=== PATIENT | male | born 1980 | race Hispanic/Latino ===

== ENCOUNTER 2022-03-07 21:44 | Observation (INO) | payer MEDICAID ==
[~2022-03-07] VITALS: Ht 185.4 cm; Wt 182.4 kg
[2022-03-07] MEDS ORDERED: ASPIRIN 81MG CHEW TAB PO ONE (22:00)
[2022-03-07 22:12] LABS: BASOPHILS % (AUTO) 0.5 % (0.0-5.0); HEMATOCRIT 40.5 % (42-54); LYMPHOCYTES % (AUTO) 20.6 % (21.0-51.0); MEAN CORPUSCULAR HEMOGLOBIN 24.2 pg (27.0-33.0); MEAN CORPUSCULAR HGB CONC 31.9 g/dL (32.0-36.0); MONOCYTES % (AUTO) 5.9 % (3.0-13.0); NEUTROPHILS % (AUTO) 70.6 % (40.0-77.0); PLATELET COUNT (AUTO) 341 K/uL (130-400); RED BLOOD CELL COUNT(AUTO) 5.33 MIL/uL (4.50-6.20); RED CELL DISTRIBUTION WIDTH 16.8 % (11.0-15.5); WHITE BLOOD COUNT (AUTO) 12.7 K/uL (4.8-10.8)
[2022-03-07 22:26] LABS: CREATININE 0.9 mg/dL (0.5-1.5); POTASSIUM 4.7 mmol/L (3.5-5.1)
[2022-03-07 22:30] LABS: ALBUMIN 3.6 g/dL (3.5-5.0); TOTAL PROTEIN, SERUM 8.3 g/dL (6.0-8.3)
[2022-03-08] MEDS ORDERED: KETOROLAC 15MG/ML VIAL (15MG/ML) IV ONE (03:00)
[2022-03-08] MEDS ORDERED: MAG/ALUM/SIMETH 30 ML UDCUP PO PRN (03:00)
[2022-03-08] MEDS ORDERED: NITROGLYCERIN 0.4 MG SL TAB SL PRN ×2 (03:00→18:00)
[2022-03-08] MEDS ORDERED: HYDRALAZINE 20MG/ML VIAL IV PRN (03:00)
[2022-03-08] MEDS ORDERED: ACETAMINOPHEN WITH CODEINE 1 TAB TAB PO PRN (03:00)
[2022-03-08] MEDS ORDERED: ZOLPIDEM TARTRATE 5 MG TAB PO PRN (03:00)
[2022-03-08] MEDS ORDERED: LACTULOSE 20 GM/30 ML UDCUP PO PRN (03:00)
[2022-03-08] MEDS ORDERED: MORPHINE 4 MG SYG IV PRN (03:00)
[2022-03-08] MEDS ORDERED: ACETAMINOPHEN 325 MG TAB PO PRN ×2 (03:00)
[2022-03-08] MEDS ORDERED: ONDANSETRON 4MG INJ IV PRN (03:00)
[2022-03-08 03:11] LABS: CHOLESTEROL 110 mg/dL (<200); HDL CHOLESTEROL 47 mg/dL (29-71); LDL DIRECT 58 mg/dL (0-99); LIPASE 69 U/L (114-286); TRIGLYCERIDES 78 mg/dL (30-200)
[2022-03-08 03:29] LABS: HEMOGLOBIN A1C 6.5 % (4.0-6.0)
[2022-03-08] MEDS ORDERED: ASPI-1197 PO (04:21)
[2022-03-08] MEDS ORDERED: LOSA100T58 PO (04:22)
[2022-03-08] MEDS ORDERED: METF-444 PO (04:23)
[2022-03-08] MEDS ORDERED: NITR0.4T50 SL (04:24)
[2022-03-08] MEDS ORDERED: LINA145C PO (04:26)
[2022-03-08] MEDS ORDERED: TRAM100T40 PO (04:29)
[2022-03-08] MEDS ORDERED: ALBUTEROL 0.083% 2.5 MG/3 ML INH IH PRN (04:30)
[2022-03-08 06:37] LABS: APPEARANCE,URINE CLEAR (CLEAR); BILIRUBIN,URINE NEGATIVE (NEGATIVE); COLOR,URINE LIGHT-YELLOW (YELLOW); GLUCOSE, URINE (UA) NEGATIVE (NEGATIVE); KETONES,URINE NEGATIVE (NEGATIVE); LEUKOCYTE ESTERASE ,URINE 25 Leu/uL (NEGATIVE); NITRATE,URINE NEGATIVE (NEGATIVE); OCCULT BLOOD,URINE NEGATIVE (NEGATIVE); PH,URINE 6.5 (5.0-8.0); PROTEIN,URINE NEGATIVE (NEGATIVE); UROBILINOGEN,URINE 0.2 mg/dL (0.2-1.0)
[2022-03-08 06:45] LABS: AMPHET/METH SCREEN,URINE NEGATIVE (NEGATIVE); BARBITURATE SCREEN, URINE NEGATIVE (NEGATIVE); BENZODIAZEPINES SCREEN,URINE NEGATIVE (NEGATIVE); CANNABINOID SCREEN,URINE NEGATIVE (NEGATIVE); COCAINE SCREEN,URINE NEGATIVE (NEGATIVE); OPIATE SCREEN,URINE NEGATIVE (NEGATIVE); PHENCYCLIDINE SCREEN,URINE NEGATIVE (NEGATIVE)
[2022-03-08] MEDS ORDERED: ALBUTEROL 0.083% 2.5 MG/3 ML INH IH ONE ×2 (06:54→10:51)
[2022-03-08 07:04] LABS: BACTERIA,URINE RARE /HPF (None Seen); RBC,URINE 0-1 /HPF (0-1); SQUAMOUS EPITHELIAL CELL,UR RARE /HPF (0-2)
[2022-03-08] MEDS: INSULIN HUMULIN R 100 UNIT/ML 3ML SQ SCH ×4 (07:30→20:26)
[2022-03-08 08:13] LABS: INFLUENZA TYPE A NEGATIVE FOR TYPE A (NEG); INFLUENZA TYPE B NEGATIVE FOR TYPE B (NEG)
[2022-03-08] MEDS: HEPARIN 5,000 UNIT VIAL SQ SCH ×3 (09:00→20:26)
[2022-03-08] MEDS: FAMOTIDINE 20MG VIAL IV SCH ×2 (09:00→20:16)
[2022-03-08] MEDS ORDERED: METOPROLOL TARTRATE 25 MG TAB PO SCH (09:00)
[2022-03-08] MEDS: ASPIRIN 81 MG EC TAB PO SCH (09:00)
[2022-03-08 16:25] VITALS: BP 154/92
[2022-03-08] MEDS ORDERED: NON-FORMULARY MEDICATION 1 EACH (Tramadol HCl 100 MG) PO SCH (18:00)
[2022-03-08] MEDS ORDERED: METO-391 PO (18:02)
[2022-03-08] MEDS ORDERED: NAPR-1192 PO (18:43)
[2022-03-08] MEDS ORDERED: NAPROXEN 250 MG TAB ONE (18:48)
[2022-03-08] MEDS: NAPROXEN 250 MG TAB PO SCH (19:04)
[2022-03-08] MEDS: TRAMADOL HCL 50 MG TABLET PO SCH (19:30)
[2022-03-08] MEDS ORDERED: PHARMACY COMMUNICATION MISC SCH (19:30)
[2022-03-08 20:00] VITALS: BP 154/72
[2022-03-08] MEDS: METFORMIN HCL 500 MG TABLET PO SCH (20:17)
[2022-03-09] VITALS: BP 130/81
[2022-03-09 04:00] VITALS: BP 146/96
[2022-03-09 05:13] LABS: MEAN CORPUSCULAR VOLUME 77.4 fL (79-99); RED BLOOD CELL COUNT(AUTO) 5.04 MIL/uL (4.50-6.20); RED CELL DISTRIBUTION WIDTH 17.1 % (11.0-15.5); WHITE BLOOD COUNT (AUTO) 12.3 K/uL (4.8-10.8)
[2022-03-09] MEDS: TRAMADOL HCL 50 MG TABLET PO SCH ×2 (05:20)
[2022-03-09 05:21] LABS: POTASSIUM 4.1 mmol/L (3.5-5.1)
[2022-03-09] MEDS: Linaclotide (Linzess) 145 MCG PO SCH (05:21)
[2022-03-09] MEDS: INSULIN HUMULIN R 100 UNIT/ML 3ML SQ SCH ×4 (05:50→21:00)
[2022-03-09 08:00] VITALS: BP 153/84
[2022-03-09] MEDS ORDERED: TRAMADOL HCL 50 MG TABLET PO PRN (08:00)
[2022-03-09] MEDS: METOPROLOL SUCCINATE 50 MG TAB.SR.24H PO SCH (08:31)
[2022-03-09] MEDS: LOSARTAN 100 MG TABLET PO SCH (08:31)
[2022-03-09] MEDS: METFORMIN HCL 500 MG TABLET PO SCH ×2 (08:32→20:47)
[2022-03-09] MEDS: NAPROXEN 250 MG TAB PO SCH ×2 (08:32→20:47)
[2022-03-09] MEDS: ASPIRIN 81 MG EC TAB PO SCH (08:33)
[2022-03-09] MEDS: FAMOTIDINE 20MG VIAL IV SCH ×2 (08:33→20:47)
[2022-03-09] MEDS: ASPIRIN 81MG CHEW TAB PO SCH (08:43)
[2022-03-09] MEDS: HEPARIN 5,000 UNIT VIAL SQ SCH ×3 (08:48→20:51)
[2022-03-09 12:07] VITALS: BP 150/92
[2022-03-09] MEDS ORDERED: FUROSEMIDE 40MG VIAL IV SCH (13:00)
[2022-03-09 14:06] LABS: ABG BASE EXCESS -2.8 mmol/L (-2.0-3.0); ABG HCO3 21.8 mmol/L (21.0-28.0); ABG OXYGEN SATURATION 96.5 % (95.0-99.0); ABG PCO2 37 mmHg (35-48)
[2022-03-09 16:00] VITALS: BP 122/67
[2022-03-09 20:00] VITALS: BP 150/71
[2022-03-10] VITALS: BP 143/66
[2022-03-10 04:00] VITALS: BP 138/83
[2022-03-10 05:31] LABS: BASOPHILS % (AUTO) 0.5 % (0.0-5.0); EOSINOPHILS % (AUTO) 2.7 % (0.0-8.0); HEMATOCRIT 36.8 % (42-54); LYMPHOCYTES % (AUTO) 23.7 % (21.0-51.0); MEAN CORPUSCULAR HEMOGLOBIN 24.1 pg (27.0-33.0); MEAN CORPUSCULAR HGB CONC 31.3 g/dL (32.0-36.0); MONOCYTES % (AUTO) 6.7 % (3.0-13.0); NEUTROPHILS % (AUTO) 65.9 % (40.0-77.0); PLATELET COUNT (AUTO) 330 K/uL (130-400); RED BLOOD CELL COUNT(AUTO) 4.78 MIL/uL (4.50-6.20); WHITE BLOOD COUNT (AUTO) 12.2 K/uL (4.8-10.8)
[2022-03-10 05:46] LABS: CREATININE 0.9 mg/dL (0.5-1.5); POTASSIUM 3.5 mmol/L (3.5-5.1)
[2022-03-10] MEDS: INSULIN HUMULIN R 100 UNIT/ML 3ML SQ SCH ×3 (06:07→16:02)
[2022-03-10] MEDS: Linaclotide (Linzess) 145 MCG PO SCH (06:37)
[2022-03-10 08:00] VITALS: BP 157/80
[2022-03-10] MEDS: METOPROLOL SUCCINATE 50 MG TAB.SR.24H PO SCH (08:30)
[2022-03-10] MEDS: LOSARTAN 100 MG TABLET PO SCH (08:30)
[2022-03-10] MEDS: ASPIRIN 81MG CHEW TAB PO SCH (08:30)
[2022-03-10] MEDS: METFORMIN HCL 500 MG TABLET PO SCH (08:30)
[2022-03-10] MEDS: FAMOTIDINE 20MG VIAL IV SCH (08:30)
[2022-03-10] MEDS: NAPROXEN 250 MG TAB PO SCH (08:32)
[2022-03-10] MEDS: HEPARIN 5,000 UNIT VIAL SQ SCH ×2 (08:39→13:24)
[2022-03-10] MEDS: ASPIRIN 81 MG EC TAB PO SCH (08:40)
[2022-03-10 12:00] VITALS: BP 116/80
[2022-03-10 16:00] VITALS: BP 140/94
[2022-03-10 19:55] VITALS: BP 138/82
== END 2022-03-10 20:10 | disposition home or self-care (01) ==
LOC: EDH 21:44 → EDHIP 21:45 → 3AH 03-08 16:24
PROVIDERS: ADMIT Hospitalist; ATTEND Hospitalist
DX: M94.0 Chondrocostal junction syndrome [Tietze] (principal); J06.9 Acute upper respiratory infection, unspecified; E78.5 Hyperlipidemia, unspecified; G47.33 Obstructive sleep apnea (adult) (pediatric); E66.01 Morbid (severe) obesity due to excess calories; E11.65 Type 2 diabetes mellitus with hyperglycemia; I10 Essential (primary) hypertension; J45.909 Unspecified asthma, uncomplicated; D50.9 Iron deficiency anemia, unspecified; D72.829 Elevated white blood cell count, unspecified; I25.10 Atherosclerotic heart disease of native coronary artery without angina pectoris; J18.9 Pneumonia, unspecified organism; K43.9 Ventral hernia without obstruction or gangrene; K59.00 Constipation, unspecified; F32.A Depression, unspecified; Z79.82 Long term (current) use of aspirin; Z79.899 Other long term (current) drug therapy; Z85.038 Personal history of other malignant neoplasm of large intestine; Z68.43 Body mass index [BMI] 50.0-59.9, adult; Z79.84 Long term (current) use of oral hypoglycemic drugs; Z91.010 Allergy to peanuts; Z93.3 Colostomy status
CPT/HCPCS: 99285; 83036; 84484 ×3; 80053; 83880; 85025 ×2; 36415 ×4; 71045; 93005; 96374; 96376 ×3; 96372 ×3; 96375 ×2; 80061; 80305; 83690; 87804 ×2; 82948 ×10; 81001; 74176; 94640 ×2; 80048 ×2; 82803; 85027; 36600; 94660; G0378 ×64; S0028 ×5; J1644 ×8; J1885; J1815 ×2; J1940; J3490

== ENCOUNTER 2022-03-14 01:17 | Observation (INO) | payer MEDICAID ==
[2022-03-14] VITALS (16 sets, daily range): BP systolic 101–146; BP diastolic 58–84
[~2022-03-14] VITALS: Ht 185.4 cm; Wt 183.3 kg
[~2022-03-14 01:17] MED LIST: ASPI-1197 PO; LINA145C PO; LOSA100T58 PO; METF-444 PO; METO-391 PO; NAPR-1192 PO; NITR0.4T50 SL; TRAM100T40 PO
[2022-03-14 01:53] LABS: BASOPHILS % (AUTO) 0.4 % (0.0-5.0); EOSINOPHILS % (AUTO) 2.7 % (0.0-8.0); HEMATOCRIT 38.2 % (42-54); LYMPHOCYTES % (AUTO) 19.3 % (21.0-51.0); MEAN CORPUSCULAR HEMOGLOBIN 24.1 pg (27.0-33.0); MEAN CORPUSCULAR HGB CONC 31.4 g/dL (32.0-36.0); MEAN CORPUSCULAR VOLUME 76.9 fL (79-99); MONOCYTES % (AUTO) 6.3 % (3.0-13.0); NEUTROPHILS % (AUTO) 70.9 % (40.0-77.0); PLATELET COUNT (AUTO) 356 K/uL (130-400); RED BLOOD CELL COUNT(AUTO) 4.97 MIL/uL (4.50-6.20); RED CELL DISTRIBUTION WIDTH 16.8 % (11.0-15.5); WHITE BLOOD COUNT (AUTO) 13.5 K/uL (4.8-10.8)
[2022-03-14] MEDS ORDERED: ASPIRIN 325MG TAB PO ONE (02:00)
[2022-03-14 02:02] LABS: CREATININE 0.9 mg/dL (0.5-1.5); POTASSIUM 3.7 mmol/L (3.5-5.1)
[2022-03-14 02:06] LABS: ALBUMIN 3.3 g/dL (3.5-5.0); TOTAL PROTEIN, SERUM 8.1 g/dL (6.0-8.3)
[2022-03-14 02:19] LABS: INR 0.93 (0.85-1.15); PROTHROMBIN TIME 10.1 SEC (9.6-11.6)
[2022-03-14 02:21] LABS: PARTIAL THROMBOPLASTIN TIME 28.2 SEC (26.3-35.5)
[2022-03-14 02:23] LABS: B-TYPE NATRIURETIC PEPTIDE < 5 pg/mL (0-100)
[2022-03-14 02:29] LABS: APPEARANCE,URINE CLEAR (CLEAR); BILIRUBIN,URINE NEGATIVE (NEGATIVE); COLOR,URINE LIGHT-YELLOW (YELLOW); GLUCOSE, URINE (UA) NEGATIVE (NEGATIVE); KETONES,URINE NEGATIVE (NEGATIVE); LEUKOCYTE ESTERASE ,URINE NEGATIVE Leu/uL (NEGATIVE); NITRATE,URINE NEGATIVE (NEGATIVE); OCCULT BLOOD,URINE NEGATIVE (NEGATIVE); PH,URINE 6.5 (5.0-8.0); PROTEIN,URINE 20 mg/dL (NEGATIVE)
[2022-03-14] MEDS ORDERED: ACETAMINOPHEN 325 MG TAB PO PRN (04:00)
[2022-03-14] MEDS ORDERED: ONDANSETRON 4MG INJ IV PRN (04:00)
[2022-03-14] MEDS ORDERED: MORPHINE 4 MG SYG IV PRN (04:00)
[2022-03-14] MEDS ORDERED: ZOLPIDEM TARTRATE 5 MG TAB PO PRN (04:00)
[2022-03-14] MEDS ORDERED: MORPHINE 2 MG SYG IV PRN (04:00)
[2022-03-14] MEDS: NITROGLYCERIN 1GM OINT 1 INCH/1GM TD SCH ×3 (04:23→20:20)
[2022-03-14] MEDS ORDERED: ALBUTEROL INHALER 90MCG/INH IH PRN (04:30)
[2022-03-14 05:24] LABS: HEMOGLOBIN A1C 6.8 % (4.0-6.0)
[2022-03-14] MEDS ORDERED: ONDA4TAB10 PO (06:38)
[2022-03-14] MEDS ORDERED: IBUP-2077 PO (06:38)
[2022-03-14] MEDS ORDERED: ATOR40TA71 PO (06:44)
[2022-03-14] MEDS ORDERED: ASCO500T19 PO (06:46)
[2022-03-14] MEDS ORDERED: FLUT16H NASAL (06:50)
[2022-03-14] MEDS ORDERED: ALBU6.7H14 PO (06:50)
[2022-03-14] MEDS: INSULIN HUMULIN R 100 UNIT/ML 3ML SQ SCH ×4 (07:30→20:22)
[2022-03-14] MEDS: ASPIRIN 81MG CHEW TAB PO SCH (09:18)
[2022-03-14] MEDS: FAMOTIDINE 20MG TAB PO SCH ×2 (09:18→20:19)
[2022-03-14] MEDS: ENOXAPARIN SODIUM 40 MG/0.4 ML SYRINGE SQ SCH (09:19)
[2022-03-15 00:12] VITALS: BP 132/77
[2022-03-15] MEDS: NITROGLYCERIN 1GM OINT 1 INCH/1GM TD SCH (03:25)
[2022-03-15 04:03] VITALS: BP 141/87
[2022-03-15 04:57] LABS: BASOPHILS % (AUTO) 0.5 % (0.0-5.0); EOSINOPHILS % (AUTO) 2.8 % (0.0-8.0); HEMATOCRIT 35.5 % (42-54); LYMPHOCYTES % (AUTO) 18.3 % (21.0-51.0); MEAN CORPUSCULAR HEMOGLOBIN 24.1 pg (27.0-33.0); MEAN CORPUSCULAR HGB CONC 30.7 g/dL (32.0-36.0); MEAN CORPUSCULAR VOLUME 78.5 fL (79-99); MONOCYTES % (AUTO) 5.3 % (3.0-13.0); NEUTROPHILS % (AUTO) 72.6 % (40.0-77.0); PLATELET COUNT (AUTO) 326 K/uL (130-400); RED BLOOD CELL COUNT(AUTO) 4.52 MIL/uL (4.50-6.20); RED CELL DISTRIBUTION WIDTH 16.9 % (11.0-15.5); WHITE BLOOD COUNT (AUTO) 13.3 K/uL (4.8-10.8)
[2022-03-15 05:10] LABS: ALBUMIN 3.1 g/dL (3.5-5.0); CREATININE 0.9 mg/dL (0.5-1.5); MAGNESIUM 1.9 mg/dL (1.80-2.40); PHOSPHORUS 3.6 mg/dL (2.5-4.9); POTASSIUM 4.3 mmol/L (3.5-5.1); TOTAL PROTEIN, SERUM 7.8 g/dL (6.0-8.3)
[2022-03-15] MEDS: INSULIN HUMULIN R 100 UNIT/ML 3ML SQ SCH ×2 (05:47→11:30)
[2022-03-15 08:00] VITALS: BP 142/71
[2022-03-15] MEDS: ENOXAPARIN SODIUM 40 MG/0.4 ML SYRINGE SQ SCH (08:44)
[2022-03-15] MEDS: FAMOTIDINE 20MG TAB PO SCH (08:44)
[2022-03-15] MEDS: ASPIRIN 81MG CHEW TAB PO SCH (08:44)
[2022-03-15 11:54] VITALS: BP 145/84
[2022-03-19] MEDS ORDERED: LACT10SO9 PO (10:42)
== END 2022-03-15 11:50 | disposition home or self-care (01) ==
LOC: EDH 01:17 → EDHIP 01:18 → INTOOBSV 01:18 → 4BH 05:22
PROVIDERS: ADMIT Hospitalist; ATTEND Hospitalist
DX: J96.00 Acute respiratory failure, unspecified whether with hypoxia or hypercapnia (principal); Z20.822 Contact with and (suspected) exposure to COVID-19; R07.89 Other chest pain; D72.829 Elevated white blood cell count, unspecified; E11.9 Type 2 diabetes mellitus without complications; I10 Essential (primary) hypertension; G47.33 Obstructive sleep apnea (adult) (pediatric); E66.01 Morbid (severe) obesity due to excess calories; Z93.3 Colostomy status; Z79.899 Other long term (current) drug therapy; Z98.890 Other specified postprocedural states; Z79.84 Long term (current) use of oral hypoglycemic drugs; Z79.82 Long term (current) use of aspirin; Z59.00 Homelessness unspecified; Z68.43 Body mass index [BMI] 50.0-59.9, adult
CPT/HCPCS: 99285; 93970; 96374; 71045; 87635; 96375; 83036; 84484 ×4; 80053 ×2; 83880 ×2; 85025 ×2; 85610; 85730; 87040 ×2; 87804 ×2; 82948 ×6; 81003; 36415 ×2; 93005; 96372 ×2; 97161; 83735; 84100; 94760 ×2; J2405; J2270; J1650 ×2; G0378

== ENCOUNTER 2022-03-30 20:42 | Emergency (ER) | payer MEDICAID ==
[~2022-03-30] VITALS: Ht 185.4 cm; Wt 183.3 kg
[~2022-03-30 20:42] MED LIST changes: +ALBU6.7H14 PO; +ASCO500T19 PO; +ATOR40TA71 PO; +FLUT16H NASAL; +IBUP-2077 PO; +LACT10SO9 PO; +ONDA4TAB10 PO
[2022-03-30] MEDS ORDERED: NITROGLYCERIN 1GM OINT 1 INCH/1GM TD ONE (21:00)
[2022-03-30] MEDS ORDERED: ASPIRIN 325MG TAB PO ONE (21:00)
[2022-03-30 21:17] LABS: BASOPHILS % (AUTO) 0.3 % (0.0-5.0); EOSINOPHILS % (AUTO) 3.5 % (0.0-8.0); HEMATOCRIT 36.1 % (42-54); LYMPHOCYTES % (AUTO) 18.2 % (21.0-51.0); MEAN CORPUSCULAR HEMOGLOBIN 23.9 pg (27.0-33.0); MONOCYTES % (AUTO) 6.1 % (3.0-13.0); NEUTROPHILS % (AUTO) 71.4 % (40.0-77.0); PLATELET COUNT (AUTO) 348 K/uL (130-400); RED BLOOD CELL COUNT(AUTO) 4.69 MIL/uL (4.50-6.20); RED CELL DISTRIBUTION WIDTH 16.3 % (11.0-15.5); WHITE BLOOD COUNT (AUTO) 12.7 K/uL (4.8-10.8)
[2022-03-30 21:30] LABS: POTASSIUM 4.1 mmol/L (3.5-5.1)
[2022-03-30 21:34] LABS: APPEARANCE,URINE CLEAR (CLEAR); BILIRUBIN,URINE NEGATIVE (NEGATIVE); COLOR,URINE LIGHT-YELLOW (YELLOW); GLUCOSE, URINE (UA) NEGATIVE (NEGATIVE); KETONES,URINE NEGATIVE (NEGATIVE); LEUKOCYTE ESTERASE ,URINE NEGATIVE Leu/uL (NEGATIVE); NITRATE,URINE NEGATIVE (NEGATIVE); OCCULT BLOOD,URINE NEGATIVE (NEGATIVE); PH,URINE 7.5 (5.0-8.0); PROTEIN,URINE 10 mg/dL (NEGATIVE); UROBILINOGEN,URINE 0.2 mg/dL (0.2-1.0)
[2022-03-30 21:38] LABS: ALBUMIN 3.1 g/dL (3.5-5.0); MAGNESIUM 1.9 mg/dL (1.80-2.40); TOTAL PROTEIN, SERUM 7.8 g/dL (6.0-8.3)
[2022-03-30 21:43] LABS: B-TYPE NATRIURETIC PEPTIDE 6 pg/mL (0-100)
[2022-03-30 21:46] LABS: MUCUS,URINE RARE LPF (None Seen); RBC,URINE 0-1 /HPF (0-1); SQUAMOUS EPITHELIAL CELL,UR RARE /HPF (0-2)
[2022-03-30] MEDS ORDERED: CYCLOBENZAPRINE HCL 10 MG TABLET PO ONE (23:00)
[2022-03-30] MEDS ORDERED: HYDROCODONE/ACETAMINOPHEN 5/325 MG TAB PO ONE (23:00)
[2022-03-30] MEDS ORDERED: CYCL10TA16 PO (23:07)
[2022-03-30 23:13] VITALS: BP 140/80
== END 2022-03-30 23:29 | disposition home or self-care (01) ==
LOC: EDH 20:42
DX: R07.89 Other chest pain (principal); M54.50 Low back pain, unspecified; E66.01 Morbid (severe) obesity due to excess calories; E11.9 Type 2 diabetes mellitus without complications; E78.00 Pure hypercholesterolemia, unspecified; I10 Essential (primary) hypertension; F32.9 Major depressive disorder, single episode, unspecified; Z90.49 Acquired absence of other specified parts of digestive tract; Z90.89 Acquired absence of other organs; Z68.43 Body mass index [BMI] 50.0-59.9, adult; Z79.82 Long term (current) use of aspirin; Z79.1 Long term (current) use of non-steroidal anti-inflammatories (NSAID); Z88.2 Allergy status to sulfonamides; Z88.8 Allergy status to other drugs, medicaments and biological substances; Z79.84 Long term (current) use of oral hypoglycemic drugs; Z79.899 Other long term (current) drug therapy
CPT/HCPCS: 36415; 71045; 80053; 81001; 82550; 83735; 83880; 84484; 85025; 93005

== ENCOUNTER 2022-04-13 22:33 | Emergency (ER) | payer MEDICAID ==
[~2022-04-13] VITALS: Ht 185.4 cm; Wt 180.5 kg
[~2022-04-13 22:33] MED LIST changes: +CYCL10TA16 PO
[2022-04-14] MEDS ORDERED: BUPIVACAINE/PF 0.25% 30ML VIAL IJ ONE (02:36)
[2022-04-14] MEDS ORDERED: TRIAMCINOLONE ACETONIDE 40 MG/ML 1ML VIAL ONE (02:36)
[2022-04-14] MEDS ORDERED: TRIAMCINOLONE ACETONIDE 40 MG/ML 1ML VIAL IARTIC ONE (03:00)
[2022-04-14] MEDS ORDERED: BUPIVACAINE/PF 0.5% 10ML VIAL IJ ONE (03:00)
[2022-04-14] MEDS ORDERED: DICL50TA7 PO (03:02)
[2022-04-14] MEDS ORDERED: ACETAMINOPHEN 325 MG TAB ONE (03:11)
[2022-04-14 03:18] VITALS: BP 135/78
[2022-04-14] MEDS ORDERED: ACETAMINOPHEN 325 MG TAB PO ONE (03:30)
== END 2022-04-14 03:25 | disposition home or self-care (01) ==
LOC: EDH 22:33
DX: M75.82 Other shoulder lesions, left shoulder (principal); E66.01 Morbid (severe) obesity due to excess calories; Z68.43 Body mass index [BMI] 50.0-59.9, adult; J45.909 Unspecified asthma, uncomplicated; E11.9 Type 2 diabetes mellitus without complications; I10 Essential (primary) hypertension; G47.30 Sleep apnea, unspecified; Z88.2 Allergy status to sulfonamides; Z88.8 Allergy status to other drugs, medicaments and biological substances; Z91.018 Allergy to other foods; Z79.899 Other long term (current) drug therapy; Z79.82 Long term (current) use of aspirin; Z79.84 Long term (current) use of oral hypoglycemic drugs; Z90.89 Acquired absence of other organs; Z98.890 Other specified postprocedural states
CPT/HCPCS: 99284; 20552; 73030; J3301; S0020; J3490

== ENCOUNTER 2022-05-07 08:16 | Emergency (ER) | payer MEDICAID ==
[~2022-05-07] VITALS: Ht 170.2 cm; Wt 168.7 kg
[~2022-05-07 08:16] MED LIST changes: -CYCL10TA16 PO; -LACT10SO9 PO; -NAPR-1192 PO; -ONDA4TAB10 PO; -TRAM100T40 PO
[2022-05-07] MEDS ORDERED: 0.9%NACL 1000ML 1,000 ML IV ONE (08:30)
[2022-05-07 08:40] LABS: BASOPHILS % (AUTO) 0.1 % (0.0-5.0); HEMATOCRIT 36.1 % (42-54); LYMPHOCYTES % (AUTO) 4.6 % (21.0-51.0); MEAN CORPUSCULAR HEMOGLOBIN 24.1 pg (27.0-33.0); MEAN CORPUSCULAR HGB CONC 31.9 g/dL (32.0-36.0); MEAN CORPUSCULAR VOLUME 75.7 fL (79-99); MONOCYTES % (AUTO) 0.2 % (3.0-13.0); NEUTROPHILS % (AUTO) 94.5 % (40.0-77.0); PLATELET COUNT (AUTO) 341 K/uL (130-400); RED BLOOD CELL COUNT(AUTO) 4.77 MIL/uL (4.50-6.20); RED CELL DISTRIBUTION WIDTH 15.3 % (11.0-15.5); WHITE BLOOD COUNT (AUTO) 13.3 K/uL (4.8-10.8)
[2022-05-07 09:00] LABS: CARBON DIOXIDE 28 mmol/L (21-32); CHLORIDE 99 mmol/L (101-111); CREATININE 1.2 mg/dL (0.5-1.5); GLOMERULAR FILTR. RATE CALC 71 mL/min (>60); GLUCOSE,RANDOM 245 mg/dL (70-105); POTASSIUM 4.3 mmol/L (3.5-5.1); SODIUM SERUM 135 mmol/L (136-145); UREA NITROGEN, BLOOD 8 mg/dL (7-18)
[2022-05-07 09:05] LABS: ALANINE AMINOTRANSFERASE 33 U/L (12-78); ALBUMIN 3.3 g/dL (3.5-5.0); ALCOHOL, BLOOD < 3 mg/dL (0-10); ASPARTATE AMINOTRANSFERASE 20 U/L (10-37); CREATINE KINASE, TOTAL 126 U/L (21-232); TOTAL PROTEIN, SERUM 8.5 g/dL (6.0-8.3)
[2022-05-07 09:06] LABS: ACETAMINOPHEN < 1 mcg/mL (10-29); SALICYLATE < 2.8 mg/dL (2.8-20.0)
[2022-05-07 09:49] LABS: APPEARANCE,URINE CLEAR (CLEAR); BILIRUBIN,URINE NEGATIVE (NEGATIVE); COLOR,URINE LIGHT-YELLOW (YELLOW); GLUCOSE, URINE (UA) 300 mg/dL (NEGATIVE); KETONES,URINE 5 mg/dL (NEGATIVE); LEUKOCYTE ESTERASE ,URINE NEGATIVE Leu/uL (NEGATIVE); NITRATE,URINE NEGATIVE (NEGATIVE); OCCULT BLOOD,URINE NEGATIVE (NEGATIVE); PH,URINE 7.5 (5.0-8.0); PROTEIN,URINE NEGATIVE (NEGATIVE); UROBILINOGEN,URINE 0.2 mg/dL (0.2-1.0)
[2022-05-07 09:55] LABS: AMPHET/METH SCREEN,URINE NEGATIVE (NEGATIVE); BARBITURATE SCREEN, URINE NEGATIVE (NEGATIVE); BENZODIAZEPINES SCREEN,URINE NEGATIVE (NEGATIVE); CANNABINOID SCREEN,URINE NEGATIVE (NEGATIVE); COCAINE SCREEN,URINE NEGATIVE (NEGATIVE); OPIATE SCREEN,URINE NEGATIVE (NEGATIVE); PHENCYCLIDINE SCREEN,URINE NEGATIVE (NEGATIVE)
[2022-05-07 09:59] LABS: MUCUS,URINE RARE LPF (None Seen); RBC,URINE 0-1 /HPF (0-1); SQUAMOUS EPITHELIAL CELL,UR RARE /HPF (0-2); WBC,URINE 0-1 /HPF (0-1)
[2022-05-07 11:10] VITALS: BP 150/90
[2022-05-07] MEDS ORDERED: DEXAMETHASONE SOD PHOSPHATE 4 MG/ML 1ML VIAL IM STA (11:32)
[2022-05-07] MEDS ORDERED: ONDANSETRON 4MG INJ IVP STA (11:32)
[2022-05-07] MEDS ORDERED: AMOX500C2 PO (11:46)
== END 2022-05-07 12:12 | disposition home or self-care (01) ==
LOC: EDH 08:16
DX: J32.9 Chronic sinusitis, unspecified (principal); R42 Dizziness and giddiness; E86.0 Dehydration; E11.9 Type 2 diabetes mellitus without complications; I10 Essential (primary) hypertension; E78.5 Hyperlipidemia, unspecified; Z79.899 Other long term (current) drug therapy; Z88.2 Allergy status to sulfonamides; Z91.041 Radiographic dye allergy status
CPT/HCPCS: 99285; 96374; 71045; 96361; 82550; 80053; 80305; 85025; 36415; 93005; 96372; 81001; J1100; G0481; J7030; J2405

== ENCOUNTER 2022-05-18 21:46 | Emergency (ER) | payer MEDICAID ==
[~2022-05-18] VITALS: Ht 185.4 cm; Wt 172.4 kg
[~2022-05-18 21:46] MED LIST changes: +AMOX500C2 PO
[2022-05-18 23:19] LABS: BASOPHILS % (AUTO) 0.4 % (0.0-5.0); EOSINOPHILS % (AUTO) 2.6 % (0.0-8.0); HEMATOCRIT 36.5 % (42-54); MEAN CORPUSCULAR HEMOGLOBIN 23.6 pg (27.0-33.0); MEAN CORPUSCULAR HGB CONC 31.2 g/dL (32.0-36.0); MEAN CORPUSCULAR VOLUME 75.4 fL (79-99); MONOCYTES % (AUTO) 6.3 % (3.0-13.0); NEUTROPHILS % (AUTO) 72.2 % (40.0-77.0); PLATELET COUNT (AUTO) 374 K/uL (130-400); RED BLOOD CELL COUNT(AUTO) 4.84 MIL/uL (4.50-6.20); RED CELL DISTRIBUTION WIDTH 15.6 % (11.0-15.5); WHITE BLOOD COUNT (AUTO) 13.5 K/uL (4.8-10.8)
[2022-05-18 23:27] LABS: CREATININE 0.9 mg/dL (0.5-1.5); POTASSIUM 3.8 mmol/L (3.5-5.1)
[2022-05-18 23:31] LABS: INR 0.96 (0.85-1.15); PROTHROMBIN TIME 10.5 SEC (9.6-11.6)
[2022-05-18 23:32] LABS: ALBUMIN 3.1 g/dL (3.5-5.0); PARTIAL THROMBOPLASTIN TIME 29.1 SEC (26.3-35.5); TOTAL PROTEIN, SERUM 7.8 g/dL (6.0-8.3)
[2022-05-18 23:56] LABS: B-TYPE NATRIURETIC PEPTIDE < 5 pg/mL (0-100)
[2022-05-19 00:03] LABS: APPEARANCE,URINE CLEAR (CLEAR); BILIRUBIN,URINE NEGATIVE (NEGATIVE); COLOR,URINE LIGHT-YELLOW (YELLOW); GLUCOSE, URINE (UA) NEGATIVE (NEGATIVE); KETONES,URINE NEGATIVE (NEGATIVE); LEUKOCYTE ESTERASE ,URINE NEGATIVE Leu/uL (NEGATIVE); NITRATE,URINE NEGATIVE (NEGATIVE); OCCULT BLOOD,URINE NEGATIVE (NEGATIVE); PH,URINE 5.5 (5.0-8.0); PROTEIN,URINE NEGATIVE (NEGATIVE); UROBILINOGEN,URINE 0.2 mg/dL (0.2-1.0)
[2022-05-19] MEDS ORDERED: GABA250S5 PO (02:39)
[2022-05-19 03:06] VITALS: BP 161/89
== END 2022-05-19 03:08 | disposition home or self-care (01) ==
LOC: EDH 21:46
DX: E11.40 Type 2 diabetes mellitus with diabetic neuropathy, unspecified (principal); E78.00 Pure hypercholesterolemia, unspecified; G47.30 Sleep apnea, unspecified; I10 Essential (primary) hypertension; Z88.8 Allergy status to other drugs, medicaments and biological substances; Z88.2 Allergy status to sulfonamides; Z91.013 Allergy to seafood; Z91.010 Allergy to peanuts; Z91.040 Latex allergy status; Z79.899 Other long term (current) drug therapy; Z79.84 Long term (current) use of oral hypoglycemic drugs; Z79.82 Long term (current) use of aspirin; Z98.890 Other specified postprocedural states
CPT/HCPCS: 36415; 80053; 81003; 83690; 83880; 85025; 85610; 85730

== ENCOUNTER 2022-06-11 19:33 | Emergency (ER) | payer MEDICAID ==
[~2022-06-11] VITALS: Ht 180.3 cm; Wt 146.5 kg
[~2022-06-11 19:33] MED LIST changes: +GABA250S5 PO
[2022-06-11 21:20] LABS: BASOPHILS % (AUTO) 0.4 % (0.0-5.0); EOSINOPHILS % (AUTO) 1.8 % (0.0-8.0); HEMATOCRIT 35.1 % (42-54); LYMPHOCYTES % (AUTO) 10.9 % (21.0-51.0); MEAN CORPUSCULAR HEMOGLOBIN 23.6 pg (27.0-33.0); MEAN CORPUSCULAR HGB CONC 30.8 g/dL (32.0-36.0); MEAN CORPUSCULAR VOLUME 76.6 fL (79-99); MONOCYTES % (AUTO) 5.8 % (3.0-13.0); NEUTROPHILS % (AUTO) 80.2 % (40.0-77.0); NUCLEATED RED BLOOD CELLS 0.1 % (0.0-0.19); PLATELET COUNT (AUTO) 324 K/uL (130-400); RED BLOOD CELL COUNT(AUTO) 4.58 MIL/uL (4.50-6.20); RED CELL DISTRIBUTION WIDTH 16.2 % (11.0-15.5); WHITE BLOOD COUNT (AUTO) 13.5 K/uL (4.8-10.8)
[2022-06-11 21:35] LABS: POTASSIUM 3.7 mmol/L (3.5-5.1)
[2022-06-11 21:48] LABS: ALBUMIN 3.1 g/dL (3.5-5.0); TOTAL PROTEIN, SERUM 7.3 g/dL (6.0-8.3)
[2022-06-11] MEDS ORDERED: METH4TAB3 PO (22:58)
[2022-06-11 23:22] VITALS: BP 138/75
== END 2022-06-11 23:28 | disposition home or self-care (01) ==
LOC: EDH 19:33
DX: M94.0 Chondrocostal junction syndrome [Tietze] (principal); E66.01 Morbid (severe) obesity due to excess calories; E11.9 Type 2 diabetes mellitus without complications; E78.00 Pure hypercholesterolemia, unspecified; I10 Essential (primary) hypertension; Z79.1 Long term (current) use of non-steroidal anti-inflammatories (NSAID); Z79.82 Long term (current) use of aspirin; Z79.899 Other long term (current) drug therapy; Z88.2 Allergy status to sulfonamides; Z68.42 Body mass index [BMI] 45.0-49.9, adult; Z88.8 Allergy status to other drugs, medicaments and biological substances
CPT/HCPCS: 36415; 71045; 80053; 84484; 85025; 93005

== ENCOUNTER 2022-07-29 01:30 | Observation (INO) | payer MEDICAID ==
[~2022-07-29] VITALS: Ht 185.4 cm; Wt 185.1 kg
[~2022-07-29 01:30] MED LIST changes: +METH4TAB3 PO
[2022-07-29 02:07] LABS: BASOPHILS % (AUTO) 0.5 % (0.0-5.0); EOSINOPHILS % (AUTO) 2.3 % (0.0-8.0); LYMPHOCYTES % (AUTO) 24.8 % (21.0-51.0); MEAN CORPUSCULAR HEMOGLOBIN 22.8 pg (27.0-33.0); MEAN CORPUSCULAR HGB CONC 30.8 g/dL (32.0-36.0); MEAN CORPUSCULAR VOLUME 74.1 fL (79-99); NEUTROPHILS % (AUTO) 66.8 % (40.0-77.0); PLATELET COUNT (AUTO) 365 K/uL (130-400); RED BLOOD CELL COUNT(AUTO) 4.86 MIL/uL (4.50-6.20); RED CELL DISTRIBUTION WIDTH 16.5 % (11.0-15.5); WHITE BLOOD COUNT (AUTO) 12.7 K/uL (4.8-10.8)
[2022-07-29 02:17] LABS: CREATININE 0.9 mg/dL (0.5-1.5); POTASSIUM 3.4 mmol/L (3.5-5.1)
[2022-07-29 02:22] LABS: ALBUMIN 3.3 g/dL (3.5-5.0); TOTAL PROTEIN, SERUM 7.6 g/dL (6.0-8.3)
[2022-07-29] MEDS ORDERED: ONDANSETRON 4MG INJ IV PRN (03:30)
[2022-07-29] MEDS ORDERED: 0.9%NACL 1000ML 1,000 ML IV SCH (03:30)
[2022-07-29] MEDS ORDERED: ACETAMINOPHEN 325 MG TAB PO PRN ×2 (03:30)
[2022-07-29] MEDS ORDERED: MORPHINE 4 MG SYG IV PRN (03:30)
[2022-07-29] MEDS ORDERED: MORPHINE 2 MG SYG IV PRN (03:30)
[2022-07-29] MEDS ORDERED: ASPIRIN 81MG CHEW TAB PO ONE (04:00)
[2022-07-29] MEDS ORDERED: POTASSIUM CHLORIDE 20MEQ/100ML 100 ML IV PRN (04:00)
[2022-07-29] MEDS ORDERED: POTASSIUM CHLORIDE 10% ELIXIR 20 MEQ/15 ML UDCUP PO PRN (04:00)
[2022-07-29] MEDS ORDERED: MAGNESIUM 2GM PREMIX 50ML 50 ML IV PRN (04:00)
[2022-07-29] MEDS ORDERED: LIDOCAINE HCL-MPF 1% 2ML VIAL IV PRN (04:00)
[2022-07-29] MEDS: NITROGLYCERIN 1GM OINT 1 INCH/1GM TD SCH ×3 (04:13→20:13)
[2022-07-29 04:16] LABS: APPEARANCE,URINE CLEAR (CLEAR); BILIRUBIN,URINE NEGATIVE (NEGATIVE); COLOR,URINE LIGHT-YELLOW (YELLOW); GLUCOSE, URINE (UA) NEGATIVE (NEGATIVE); KETONES,URINE NEGATIVE (NEGATIVE); LEUKOCYTE ESTERASE ,URINE NEGATIVE Leu/uL (NEGATIVE); NITRATE,URINE NEGATIVE (NEGATIVE); OCCULT BLOOD,URINE NEGATIVE (NEGATIVE); PH,URINE 6.5 (5.0-8.0); PROTEIN,URINE NEGATIVE (NEGATIVE); UROBILINOGEN,URINE 3 mg/dL (0.2-1.0)
[2022-07-29 05:20] VITALS: BP 145/86
[2022-07-29] MEDS ORDERED: ALBU6.7H14 IH (05:37)
[2022-07-29] MEDS ORDERED: FURO40TA5 PO (05:37)
[2022-07-29] MEDS ORDERED: IPRAHFA IH (05:37)
[2022-07-29] MEDS ORDERED: DOXY100C5 PO (05:37)
[2022-07-29] MEDS ORDERED: [UNRECOGNIZED DRUG - OTHER] OTIC (05:37)
[2022-07-29] MEDS ORDERED: NAPR-1023 PO (05:37)
[2022-07-29] MEDS: INSULIN HUMULIN R 100 UNIT/ML 3ML SQ SCH ×4 (05:59→20:02)
[2022-07-29 08:00] VITALS: BP 118/76
[2022-07-29 08:23] VITALS: BP 133/75
[2022-07-29] MEDS: KCL 20 MEQ ERTAB PO PRN ×2 (09:56→15:57)
[2022-07-29] MEDS: ASPIRIN 81MG CHEW TAB PO SCH (09:56)
[2022-07-29] MEDS: ENOXAPARIN SODIUM 40 MG/0.4 ML SYRINGE SQ SCH (09:56)
[2022-07-29] MEDS: FAMOTIDINE 20MG TAB PO SCH ×2 (09:56→20:13)
[2022-07-29 12:03] VITALS: BP 136/78
[2022-07-29 12:35] LABS: CHOLESTEROL 120 mg/dL (<200); HDL CHOLESTEROL 39 mg/dL (29-71); LDL DIRECT 64 mg/dL (0-99); TRIGLYCERIDES 153 mg/dL (30-200)
[2022-07-29 12:58] LABS: AMPHET/METH SCREEN,URINE NEGATIVE (NEGATIVE); BARBITURATE SCREEN, URINE NEGATIVE (NEGATIVE); BENZODIAZEPINES SCREEN,URINE NEGATIVE (NEGATIVE); CANNABINOID SCREEN,URINE NEGATIVE (NEGATIVE); COCAINE SCREEN,URINE NEGATIVE (NEGATIVE); OPIATE SCREEN,URINE NEGATIVE (NEGATIVE); PHENCYCLIDINE SCREEN,URINE NEGATIVE (NEGATIVE)
[2022-07-29 16:42] VITALS: BP 134/78
[2022-07-29 20:00] VITALS: BP 154/65
[2022-07-29] MEDS: METOPROLOL TARTRATE 25 MG TAB PO SCH (20:13)
[2022-07-29] MEDS ORDERED: ATORVASTATIN 20 MG TABLET PO SCH (21:00)
[2022-07-30] VITALS: BP 138/81
[2022-07-30] MEDS: NITROGLYCERIN 1GM OINT 1 INCH/1GM TD SCH ×2 (03:18→11:53)
[2022-07-30 04:00] VITALS: BP 133/79
[2022-07-30 04:45] LABS: BASOPHILS % (AUTO) 0.3 % (0.0-5.0); EOSINOPHILS % (AUTO) 2.6 % (0.0-8.0); HEMATOCRIT 32.1 % (42-54); LYMPHOCYTES % (AUTO) 17.3 % (21.0-51.0); MEAN CORPUSCULAR HEMOGLOBIN 23.1 pg (27.0-33.0); MEAN CORPUSCULAR HGB CONC 30.8 g/dL (32.0-36.0); MEAN CORPUSCULAR VOLUME 74.8 fL (79-99); NEUTROPHILS % (AUTO) 74.2 % (40.0-77.0); PLATELET COUNT (AUTO) 309 K/uL (130-400); RED BLOOD CELL COUNT(AUTO) 4.29 MIL/uL (4.50-6.20); RED CELL DISTRIBUTION WIDTH 16.6 % (11.0-15.5)
[2022-07-30 05:03] LABS: HEMOGLOBIN A1C 6.8 % (4.0-6.0)
[2022-07-30 05:21] LABS: CREATININE 0.9 mg/dL (0.5-1.5); PHOSPHORUS 3.6 mg/dL (2.5-4.9); POTASSIUM 3.4 mmol/L (3.5-5.1); THYROID STIMULATING HORMONE 1.26 uIU/mL (0.36-3.74)
[2022-07-30] MEDS: KCL 20 MEQ ERTAB PO PRN ×2 (05:26→11:54)
[2022-07-30] MEDS: INSULIN HUMULIN R 100 UNIT/ML 3ML SQ SCH ×3 (05:35→16:30)
[2022-07-30 08:00] VITALS: BP 170/85
[2022-07-30] MEDS: ASPIRIN 81MG CHEW TAB PO SCH (10:52)
[2022-07-30] MEDS: METOPROLOL TARTRATE 25 MG TAB PO SCH (10:52)
[2022-07-30] MEDS: ENOXAPARIN SODIUM 40 MG/0.4 ML SYRINGE SQ SCH (10:53)
[2022-07-30] MEDS: FAMOTIDINE 20MG TAB PO SCH (10:53)
[2022-07-30 11:30] VITALS: BP 152/86
[2022-07-30] MEDS ORDERED: PEG 3350/NA SULF,BICARB,CL/KCL 4000 ML SOLN PO SCH (15:00)
[2022-07-30] MEDS ORDERED: NITR0.4T50 SL (15:18)
[2022-07-30] MEDS ORDERED: ATOR40TA69 PO (15:18)
[2022-07-30] MEDS ORDERED: METO25TA6 PO (15:18)
[2022-07-30 16:00] VITALS: BP 145/83
[2022-07-30] MEDS ORDERED: ATORVASTATIN 20 MG TABLET PO SCH (21:00)
== END 2022-07-30 18:01 | disposition home or self-care (01) ==
LOC: EDH 01:30 → EDHIP 01:31 → INTOOBSV 01:31 → 4CH 05:01
PROVIDERS: ADMIT Internal Medicine; ATTEND Internal Medicine
DX: R07.89 Other chest pain (principal); D72.829 Elevated white blood cell count, unspecified; E87.6 Hypokalemia; I10 Essential (primary) hypertension; E11.9 Type 2 diabetes mellitus without complications; E78.5 Hyperlipidemia, unspecified; G47.33 Obstructive sleep apnea (adult) (pediatric); I25.10 Atherosclerotic heart disease of native coronary artery without angina pectoris; I24.9 Acute ischemic heart disease, unspecified; J45.909 Unspecified asthma, uncomplicated; E66.01 Morbid (severe) obesity due to excess calories; Z51.5 Encounter for palliative care; Z68.43 Body mass index [BMI] 50.0-59.9, adult; Z79.82 Long term (current) use of aspirin; Z79.899 Other long term (current) drug therapy; Z90.49 Acquired absence of other specified parts of digestive tract; Z91.010 Allergy to peanuts; Z91.013 Allergy to seafood; Z79.84 Long term (current) use of oral hypoglycemic drugs; Z79.4 Long term (current) use of insulin; Z98.890 Other specified postprocedural states
CPT/HCPCS: 96372 ×2; 99285; 83036 ×2; 84484 ×4; 80061; 80053; 83880; 80305; 85025 ×2; 87040 ×2; 82948 ×7; 81003; 36415 ×2; 71045; 93005; 84443; 83735; 84100; 80048; 71046; 93306; J1650 ×2; G0378 ×6

== ENCOUNTER 2022-07-31 02:08 | Emergency (ER) | payer MEDICAID ==
[~2022-07-31 02:08] MED LIST changes: +ALBU6.7H14 IH; -ALBU6.7H14 PO; -AMOX500C2 PO; -ASCO500T19 PO; +ATOR40TA69 PO; -ATOR40TA71 PO; +FURO40TA5 PO; -GABA250S5 PO; -IBUP-2077 PO; +IPRAHFA IH; -LINA145C PO; -LOSA100T58 PO; -METH4TAB3 PO; -METO-391 PO; +METO25TA6 PO
[2022-07-31 04:07] VITALS: BP 128/78
[2022-07-31 06:17] LABS: BASOPHILS % (AUTO) 0.4 % (0.0-5.0); EOSINOPHILS % (AUTO) 2.8 % (0.0-8.0); HEMATOCRIT 35.8 % (42-54); MEAN CORPUSCULAR HEMOGLOBIN 22.8 pg (27.0-33.0); MEAN CORPUSCULAR HGB CONC 30.7 g/dL (32.0-36.0); MEAN CORPUSCULAR VOLUME 74.1 fL (79-99); MONOCYTES % (AUTO) 4.5 % (3.0-13.0); NEUTROPHILS % (AUTO) 76.8 % (40.0-77.0); PLATELET COUNT (AUTO) 335 K/uL (130-400); RED BLOOD CELL COUNT(AUTO) 4.83 MIL/uL (4.50-6.20); RED CELL DISTRIBUTION WIDTH 16.6 % (11.0-15.5); WHITE BLOOD COUNT (AUTO) 15.3 K/uL (4.8-10.8)
[2022-07-31 06:26] LABS: CREATININE 0.9 mg/dL (0.5-1.5); POTASSIUM 3.7 mmol/L (3.5-5.1)
[2022-07-31 06:34] LABS: ALBUMIN 3.4 g/dL (3.5-5.0); TOTAL PROTEIN, SERUM 7.9 g/dL (6.0-8.3)
[2022-07-31 06:34] LABS: APPEARANCE,URINE CLEAR (CLEAR); BILIRUBIN,URINE NEGATIVE (NEGATIVE); COLOR,URINE LIGHT-YELLOW (YELLOW); GLUCOSE, URINE (UA) NEGATIVE (NEGATIVE); KETONES,URINE 5 mg/dL (NEGATIVE); LEUKOCYTE ESTERASE ,URINE NEGATIVE Leu/uL (NEGATIVE); NITRATE,URINE NEGATIVE (NEGATIVE); OCCULT BLOOD,URINE NEGATIVE (NEGATIVE); PROTEIN,URINE 20 mg/dL (NEGATIVE)
[2022-07-31 06:41] LABS: AMPHET/METH SCREEN,URINE NEGATIVE (NEGATIVE); BARBITURATE SCREEN, URINE NEGATIVE (NEGATIVE); BENZODIAZEPINES SCREEN,URINE NEGATIVE (NEGATIVE); CANNABINOID SCREEN,URINE NEGATIVE (NEGATIVE); COCAINE SCREEN,URINE NEGATIVE (NEGATIVE); OPIATE SCREEN,URINE NEGATIVE (NEGATIVE); PHENCYCLIDINE SCREEN,URINE NEGATIVE (NEGATIVE)
[2022-07-31 06:42] LABS: MUCUS,URINE RARE LPF (None Seen); OTHER CASTS, URINE 1 /LPF (None Seen); RBC,URINE 0-1 /HPF (0-1); SQUAMOUS EPITHELIAL CELL,UR RARE /HPF (0-2)
== END 2022-07-31 07:31 | disposition home or self-care (01) ==
LOC: EDH 02:08
DX: R55 Syncope and collapse (principal); R42 Dizziness and giddiness; E11.9 Type 2 diabetes mellitus without complications; I10 Essential (primary) hypertension; Z90.49 Acquired absence of other specified parts of digestive tract; Z98.890 Other specified postprocedural states; Z79.1 Long term (current) use of non-steroidal anti-inflammatories (NSAID); Z79.52 Long term (current) use of systemic steroids; Z79.82 Long term (current) use of aspirin; Z79.899 Other long term (current) drug therapy; Z88.2 Allergy status to sulfonamides; Z88.8 Allergy status to other drugs, medicaments and biological substances
CPT/HCPCS: 36415; 71045; 80053; 80305; 81001; 82948; 85025; 93005

== ENCOUNTER 2022-10-05 02:43 | Emergency (ER) | payer MEDICAID ==
[~2022-10-05] VITALS: Ht 185.4 cm; Wt 181.4 kg
[2022-10-05 03:24] LABS: BASOPHILS % (AUTO) 0.4 % (0.0-5.0); EOSINOPHILS % (AUTO) 3.1 % (0.0-8.0); LYMPHOCYTES % (AUTO) 17.8 % (21.0-51.0); MEAN CORPUSCULAR HEMOGLOBIN 22.7 pg (27.0-33.0); MEAN CORPUSCULAR HGB CONC 30.6 g/dL (32.0-36.0); MEAN CORPUSCULAR VOLUME 74.2 fL (79-99); MONOCYTES % (AUTO) 6.5 % (3.0-13.0); NEUTROPHILS % (AUTO) 71.6 % (40.0-77.0); PLATELET COUNT (AUTO) 353 K/uL (130-400); RED BLOOD CELL COUNT(AUTO) 4.72 MIL/uL (4.50-6.20); WHITE BLOOD COUNT (AUTO) 12.1 K/uL (4.8-10.8)
[2022-10-05 03:31] LABS: POTASSIUM 3.8 mmol/L (3.5-5.1)
[2022-10-05 03:33] LABS: APPEARANCE,URINE CLEAR (CLEAR); BILIRUBIN,URINE NEGATIVE (NEGATIVE); COLOR,URINE LIGHT-YELLOW (YELLOW); GLUCOSE, URINE (UA) NEGATIVE (NEGATIVE); KETONES,URINE NEGATIVE (NEGATIVE); LEUKOCYTE ESTERASE ,URINE NEGATIVE Leu/uL (NEGATIVE); NITRATE,URINE NEGATIVE (NEGATIVE); OCCULT BLOOD,URINE NEGATIVE (NEGATIVE); PROTEIN,URINE NEGATIVE (NEGATIVE); UROBILINOGEN,URINE 3 mg/dL (0.2-1.0)
[2022-10-05 03:35] LABS: ALBUMIN 3.4 g/dL (3.5-5.0); TOTAL PROTEIN, SERUM 7.8 g/dL (6.0-8.3)
[2022-10-05] MEDS ORDERED: IOHEXOL 350 MG/ML 100ML INFUS..BTL IV ONE (05:36)
[2022-10-05 06:17] VITALS: BP 148/99
[2022-10-05] MEDS ORDERED: MAGN296S73 PO (06:46)
== END 2022-10-05 06:56 | disposition home or self-care (01) ==
LOC: EDH 02:43
DX: M54.50 Low back pain, unspecified (principal); R10.32 Left lower quadrant pain; E66.09 Other obesity due to excess calories; Z68.43 Body mass index [BMI] 50.0-59.9, adult; I10 Essential (primary) hypertension; E11.9 Type 2 diabetes mellitus without complications; E66.01 Morbid (severe) obesity due to excess calories; G47.30 Sleep apnea, unspecified; Z79.82 Long term (current) use of aspirin; Z79.899 Other long term (current) drug therapy; Z90.49 Acquired absence of other specified parts of digestive tract; Z98.890 Other specified postprocedural states; Z87.19 Personal history of other diseases of the digestive system; Z88.2 Allergy status to sulfonamides; Z88.8 Allergy status to other drugs, medicaments and biological substances; Z91.040 Latex allergy status; Z91.013 Allergy to seafood
CPT/HCPCS: 36415; 74176; 80053; 81003; 83690; 85025; Q9967

== ENCOUNTER 2022-10-13 00:03 | Emergency (ER) | payer MEDICAID ==
[~2022-10-13] VITALS: Ht 185.4 cm; Wt 158.8 kg
[~2022-10-13 00:03] MED LIST changes: +MAGN296S73 PO
[2022-10-13 00:07] VITALS: BP 164/97
[2022-10-13] MEDS ORDERED: ASPIRIN 81MG CHEW TAB PO ONE (00:30)
[2022-10-13 00:42] LABS: BASOPHILS % (AUTO) 0.3 % (0.0-5.0); EOSINOPHILS % (AUTO) 2.3 % (0.0-8.0); HEMATOCRIT 36.2 % (42-54); LYMPHOCYTES % (AUTO) 23.1 % (21.0-51.0); MEAN CORPUSCULAR HEMOGLOBIN 22.9 pg (27.0-33.0); MEAN CORPUSCULAR HGB CONC 30.9 g/dL (32.0-36.0); MONOCYTES % (AUTO) 5.2 % (3.0-13.0); NEUTROPHILS % (AUTO) 68.6 % (40.0-77.0); PLATELET COUNT (AUTO) 369 K/uL (130-400); RED BLOOD CELL COUNT(AUTO) 4.89 MIL/uL (4.50-6.20); RED CELL DISTRIBUTION WIDTH 17.1 % (11.0-15.5); WHITE BLOOD COUNT (AUTO) 13.3 K/uL (4.8-10.8)
[2022-10-13 00:46] LABS: CREATININE 0.9 mg/dL (0.5-1.5); POTASSIUM 3.7 mmol/L (3.5-5.1)
[2022-10-13 00:51] LABS: ALBUMIN 3.3 g/dL (3.5-5.0); MAGNESIUM 2.1 mg/dL (1.80-2.40)
[2022-10-13] MEDS ORDERED: ONDANSETRON ODT 4MG TAB SL ONE (03:30)
== END 2022-10-13 03:48 | disposition home or self-care (01) ==
LOC: EDH 00:03
DX: R07.89 Other chest pain (principal); J45.909 Unspecified asthma, uncomplicated; E11.9 Type 2 diabetes mellitus without complications; E78.00 Pure hypercholesterolemia, unspecified; I10 Essential (primary) hypertension; Z79.82 Long term (current) use of aspirin; Z88.2 Allergy status to sulfonamides; Z88.8 Allergy status to other drugs, medicaments and biological substances; Z90.49 Acquired absence of other specified parts of digestive tract
CPT/HCPCS: 36415; 71045; 80053; 83735; 84484; 85025; 93005

== ENCOUNTER 2022-10-27 00:37 | Emergency (ER) | payer MEDICAID ==
[~2022-10-27] VITALS: Ht 185.4 cm; Wt 181.9 kg
[2022-10-27 00:49] VITALS: BP 125/89
[2022-10-27] MEDS ORDERED: LORA-1339 PO (01:26)
[2022-10-27] MEDS ORDERED: AZEL205.9 NS (01:26)
== END 2022-10-27 01:41 | disposition home or self-care (01) ==
LOC: EDH 00:37
DX: J45.909 Unspecified asthma, uncomplicated (principal); E11.9 Type 2 diabetes mellitus without complications; E66.01 Morbid (severe) obesity due to excess calories; E78.00 Pure hypercholesterolemia, unspecified; I10 Essential (primary) hypertension; Z79.82 Long term (current) use of aspirin; Z88.2 Allergy status to sulfonamides; Z88.8 Allergy status to other drugs, medicaments and biological substances; Z90.49 Acquired absence of other specified parts of digestive tract; Z20.822 Contact with and (suspected) exposure to COVID-19; Z68.43 Body mass index [BMI] 50.0-59.9, adult
CPT/HCPCS: 99284; 71045; 87635; 87804 ×2; C9803

== ENCOUNTER 2022-11-02 03:04 | Emergency (ER) | payer MEDICARE, MEDICAID ==
[~2022-11-02] VITALS: Ht 180.3 cm; Wt 181.9 kg
[~2022-11-02 03:04] MED LIST changes: +AZEL205.9 NS; +LORA-1339 PO
[2022-11-02 03:08] VITALS: BP 163/95
[2022-11-02] MEDS ORDERED: MECL-262 PO (03:30)
[2022-11-02] MEDS ORDERED: AMOX1TAB16 PO (03:30)
[2022-11-02] MEDS ORDERED: MECLIZINE HCL 25 MG TABLET PO ONE (03:30)
== END 2022-11-02 03:49 | disposition home or self-care (01) ==
LOC: EDH 03:04
DX: R42 Dizziness and giddiness (principal); H66.92 Otitis media, unspecified, left ear; H61.22 Impacted cerumen, left ear; E11.9 Type 2 diabetes mellitus without complications; E78.00 Pure hypercholesterolemia, unspecified; I10 Essential (primary) hypertension; Z79.82 Long term (current) use of aspirin; Z88.2 Allergy status to sulfonamides; Z88.8 Allergy status to other drugs, medicaments and biological substances
CPT/HCPCS: 99282

== ENCOUNTER 2022-11-06 03:28 | Emergency (ER) | payer MEDICARE, MEDICAID ==
[~2022-11-06 03:28] MED LIST changes: +AMOX1TAB16 PO; +MECL-262 PO
[2022-11-06] MEDS ORDERED: ASPIRIN 325MG TAB PO ONE (04:30)
[2022-11-06 04:58] LABS: CREATININE 0.8 mg/dL (0.5-1.5); POTASSIUM 4.3 mmol/L (3.5-5.1)
[2022-11-06 05:01] LABS: INR 0.93 (0.85-1.15); PROTHROMBIN TIME 10.4 SEC (9.6-11.6)
[2022-11-06 05:02] LABS: MAGNESIUM 1.9 mg/dL (1.80-2.40); PARTIAL THROMBOPLASTIN TIME 26.8 SEC (26.3-35.5); TOTAL PROTEIN, SERUM 7.9 g/dL (6.0-8.3)
[2022-11-06 05:19] LABS: BASOPHILS % (AUTO) 0.3 % (0.0-5.0); EOSINOPHILS % (AUTO) 2.2 % (0.0-8.0); HEMATOCRIT 36.1 % (42-54); LYMPHOCYTES % (AUTO) 16.4 % (21.0-51.0); MEAN CORPUSCULAR VOLUME 74.1 fL (79-99); MONOCYTES % (AUTO) 5.4 % (3.0-13.0); NEUTROPHILS % (AUTO) 75.1 % (40.0-77.0); PLATELET COUNT (AUTO) 375 K/uL (130-400); RED BLOOD CELL COUNT(AUTO) 4.87 MIL/uL (4.50-6.20); RED CELL DISTRIBUTION WIDTH 16.9 % (11.0-15.5)
[2022-11-06 06:29] LABS: B-TYPE NATRIURETIC PEPTIDE < 5 pg/mL (0-100)
[2022-11-06 07:18] VITALS: BP 156/95
== END 2022-11-06 07:22 | disposition home or self-care (01) ==
LOC: EDH 03:28
DX: M94.0 Chondrocostal junction syndrome [Tietze] (principal); I10 Essential (primary) hypertension; E78.00 Pure hypercholesterolemia, unspecified; E11.9 Type 2 diabetes mellitus without complications; G89.29 Other chronic pain; Z88.2 Allergy status to sulfonamides; Z88.8 Allergy status to other drugs, medicaments and biological substances; Z91.018 Allergy to other foods; Z79.84 Long term (current) use of oral hypoglycemic drugs; Z79.899 Other long term (current) drug therapy
CPT/HCPCS: 36415; 71045; 80053; 83735; 83880; 84484; 85025; 85378; 85610; 85730; 93005

== ENCOUNTER 2022-11-10 02:49 | Emergency (ER) | payer MEDICARE, MEDICAID ==
[~2022-11-10] VITALS: Ht 185.4 cm; Wt 181.4 kg
[2022-11-10] MEDS ORDERED: ACETAMINOPHEN 500 MG TABLET PO ONE (03:30)
[2022-11-10 04:23] LABS: BASOPHILS % (AUTO) 0.2 % (0.0-5.0); EOSINOPHILS % (AUTO) 2.1 % (0.0-8.0); HEMATOCRIT 38.3 % (42-54); LYMPHOCYTES % (AUTO) 14.7 % (21.0-51.0); MEAN CORPUSCULAR HEMOGLOBIN 22.7 pg (27.0-33.0); MEAN CORPUSCULAR VOLUME 75.5 fL (79-99); MONOCYTES % (AUTO) 5.6 % (3.0-13.0); NEUTROPHILS % (AUTO) 76.7 % (40.0-77.0); PLATELET COUNT (AUTO) 378 K/uL (130-400); RED BLOOD CELL COUNT(AUTO) 5.07 MIL/uL (4.50-6.20); RED CELL DISTRIBUTION WIDTH 17.3 % (11.0-15.5)
[2022-11-10 04:37] LABS: CREATININE 0.9 mg/dL (0.5-1.5)
[2022-11-10 04:41] LABS: ALBUMIN 3.3 g/dL (3.5-5.0); TOTAL PROTEIN, SERUM 8.1 g/dL (6.0-8.3)
[2022-11-10 05:39] VITALS: BP 144/92
== END 2022-11-10 06:18 | disposition home or self-care (01) ==
LOC: EDH 02:49
DX: G89.29 Other chronic pain (principal); R07.89 Other chest pain; G47.33 Obstructive sleep apnea (adult) (pediatric); E66.09 Other obesity due to excess calories; Z68.43 Body mass index [BMI] 50.0-59.9, adult; I10 Essential (primary) hypertension; E78.00 Pure hypercholesterolemia, unspecified; E11.9 Type 2 diabetes mellitus without complications; Z90.49 Acquired absence of other specified parts of digestive tract; Z79.82 Long term (current) use of aspirin; Z79.84 Long term (current) use of oral hypoglycemic drugs; Z79.899 Other long term (current) drug therapy; Z98.890 Other specified postprocedural states; Z88.2 Allergy status to sulfonamides; Z91.040 Latex allergy status; Z91.010 Allergy to peanuts; Z91.018 Allergy to other foods
CPT/HCPCS: 36415; 71045; 80053; 83735; 84484; 85025; 93005

== ENCOUNTER → 2022-11-13 | Outpatient (CLI) | payer MEDICARE ==
[~2022-11-13] MED LIST changes: +CYCL10TA16 PO; +IBUP-2077 PO
[2022-11-13 13:05] LABS: ALBUMIN 3.4 g/dL (3.5-5.0); CREATININE 0.8 mg/dL (0.5-1.5); POTASSIUM 4.2 mmol/L (3.5-5.1); TOTAL PROTEIN, SERUM 8.3 g/dL (6.0-8.3)
== END | disposition home or self-care (01) ==
LOC: LAB 08:08
PROVIDERS: ATTEND Internal Medicine Cardiovascular Disease
DX: E78.5 Hyperlipidemia, unspecified (principal)
CPT/HCPCS: 36415; 80053; 80061

== ENCOUNTER 2022-11-14 04:43 | Emergency (ER) | payer MEDICARE ==
[~2022-11-14] VITALS: Ht 185.4 cm; Wt 183.3 kg
[~2022-11-14 04:43] MED LIST changes: -CYCL10TA16 PO; -IBUP-2077 PO
[2022-11-14 05:23] LABS: BASOPHILS % (AUTO) 0.7 % (0.0-5.0); EOSINOPHILS % (AUTO) 2.7 % (0.0-8.0); HEMATOCRIT 35.9 % (42-54); LYMPHOCYTES % (AUTO) 20.5 % (21.0-51.0); MEAN CORPUSCULAR HGB CONC 30.9 g/dL (32.0-36.0); MEAN CORPUSCULAR VOLUME 74.3 fL (79-99); MONOCYTES % (AUTO) 6.4 % (3.0-13.0); NEUTROPHILS % (AUTO) 69.2 % (40.0-77.0); PLATELET COUNT (AUTO) 365 K/uL (130-400); RED BLOOD CELL COUNT(AUTO) 4.83 MIL/uL (4.50-6.20); RED CELL DISTRIBUTION WIDTH 17.2 % (11.0-15.5); WHITE BLOOD COUNT (AUTO) 12.8 K/uL (4.8-10.8)
[2022-11-14 05:25] LABS: CREATININE 0.6 mg/dL (0.5-1.5); POTASSIUM 4.8 mmol/L (3.5-5.1)
[2022-11-14 05:30] LABS: ALBUMIN 3.1 g/dL (3.5-5.0)
[2022-11-14 05:44] LABS: B-TYPE NATRIURETIC PEPTIDE < 5 pg/mL (0-100)
[2022-11-14] MEDS ORDERED: CYCL10TA16 PO (07:16)
[2022-11-14] MEDS ORDERED: IBUP-2077 PO (07:16)
[2022-11-14 07:29] VITALS: BP 141/85
== END 2022-11-14 07:28 | disposition home or self-care (01) ==
LOC: EDH 04:43
DX: R07.89 Other chest pain (principal); E66.01 Morbid (severe) obesity due to excess calories; E88.81 Metabolic syndrome and other insulin resistance; E11.9 Type 2 diabetes mellitus without complications; E78.00 Pure hypercholesterolemia, unspecified; I10 Essential (primary) hypertension; J45.909 Unspecified asthma, uncomplicated; Z79.82 Long term (current) use of aspirin; Z88.2 Allergy status to sulfonamides; Z88.8 Allergy status to other drugs, medicaments and biological substances; Z68.43 Body mass index [BMI] 50.0-59.9, adult; Z90.49 Acquired absence of other specified parts of digestive tract
CPT/HCPCS: 36415; 80053; 83880; 84484; 85025; 93005

== ENCOUNTER 2023-03-26 16:36 | Emergency (ER) | payer MEDICARE ==
[~2023-03-26] VITALS: Ht 185.4 cm; Wt 185.5 kg
[~2023-03-26 16:36] MED LIST changes: +CYCL10TA16 PO; +IBUP-2077 PO
[2023-03-26 16:38] VITALS: BP 141/70; PULSE 92; RESP 16; O2SAT 100
[2023-03-26 17:20] LABS: BASOPHILS # (AUTO) 0.05 K/uL (0.00-0.20); BASOPHILS % (AUTO) 0.3 % (0.0-5.0); EOSINOPHILS # (AUTO) 0.28 K/uL (0.00-0.70); EOSINOPHILS % (AUTO) 1.8 % (0.0-8.0); HEMATOCRIT 34.6 % (42-54); IMMATURE GRANULOCYTE ABSOLUTE 0.07 K/uL (0-1); LYMPHOCYTES # (AUTO) 2.2 K/uL (1.0-4.8); LYMPHOCYTES % (AUTO) 13.8 % (21.0-51.0); MEAN CORPUSCULAR HEMOGLOBIN 22.7 pg (27.0-33.0); MEAN CORPUSCULAR HGB CONC 30.9 g/dL (32.0-36.0); MEAN CORPUSCULAR VOLUME 73.5 fL (79-99); MONOCYTES % (AUTO) 6.4 % (3.0-13.0); NEUTROPHILS # (AUTO) 12.1 K/uL (1.8-7.7); NEUTROPHILS % (AUTO) 77.3 % (40.0-77.0); PLATELET COUNT (AUTO) 361 K/uL (130-400); RED BLOOD CELL COUNT(AUTO) 4.71 MIL/uL (4.50-6.20); RED CELL DISTRIBUTION WIDTH 17.6 % (11.0-15.5); WHITE BLOOD COUNT (AUTO) 15.6 K/uL (4.8-10.8)
[2023-03-26] MEDS ORDERED: ONDANSETRON 4MG INJ IVP ONE (17:30)
[2023-03-26] MEDS ORDERED: MORPHINE 4 MG SYG IVP ONE (17:30)
[2023-03-26 17:35] LABS: BILIRUBIN,TOTAL 0.2 mg/dL (0.2-1.0); CREATININE 0.9 mg/dL (0.5-1.5); TOTAL PROTEIN, SERUM 7.4 g/dL (6.0-8.3)
[2023-03-26] MEDS ORDERED: IBUP-2071 PO (18:47)
[2023-03-26] MEDS ORDERED: METH-662 PO (18:47)
== END 2023-03-26 19:30 | disposition home or self-care (01) ==
LOC: EDH 16:36
DX: S76.912A Strain of unspecified muscles, fascia and tendons at thigh level, left thigh, initial encounter (principal); M79.605 Pain in left leg; E66.9 Obesity, unspecified; Z68.43 Body mass index [BMI] 50.0-59.9, adult; D72.829 Elevated white blood cell count, unspecified; E11.9 Type 2 diabetes mellitus without complications; Z79.82 Long term (current) use of aspirin; I10 Essential (primary) hypertension; Z88.2 Allergy status to sulfonamides; Z88.8 Allergy status to other drugs, medicaments and biological substances; Z91.041 Radiographic dye allergy status; X58.XXXA Exposure to other specified factors, initial encounter; Y93.89 Activity, other specified; Y92.89 Other specified places as the place of occurrence of the external cause; Y99.8 Other external cause status
CPT/HCPCS: 99284; 96374; 96375; 80053; 85025; 36415; 73502; 73552; J2405; J2270

== ENCOUNTER 2023-07-26 10:09 | Emergency (ER) | payer OTHER ==
[~2023-07-26] VITALS: Ht 185.4 cm; Wt 189.6 kg
[~2023-07-26 10:09] MED LIST changes: -AMOX1TAB16 PO; -ATOR40TA69 PO; -AZEL205.9 NS; +CHOL1TAB PO; -CYCL10TA16 PO; +DICL100G60 TP; +EMPA10TA PO; +FLUT1AER11 IH; -FURO40TA5 PO; -IBUP-2077 PO; -LORA-1339 PO; -MAGN296S73 PO; -MECL-262 PO; -METF-444 PO
[2023-07-26 10:53] LABS: BASOPHILS # (AUTO) 0.05 K/uL (0.00-0.20); BASOPHILS % (AUTO) 0.4 % (0.0-5.0); EOSINOPHILS % (AUTO) 3.6 % (0.0-8.0); HEMATOCRIT 33.7 % (42-54); IMMATURE GRANULOCYTE ABSOLUTE 0.05 K/uL (0-1); LYMPHOCYTES # (AUTO) 2.2 K/uL (1.0-4.8); LYMPHOCYTES % (AUTO) 19.1 % (21.0-51.0); MEAN CORPUSCULAR HEMOGLOBIN 21.8 pg (27.0-33.0); MEAN CORPUSCULAR HGB CONC 30.9 g/dL (32.0-36.0); MEAN CORPUSCULAR VOLUME 70.6 fL (79-99); MONOCYTES # (AUTO) 0.7 K/uL (0.1-1.0); MONOCYTES % (AUTO) 6.6 % (3.0-13.0); NEUTROPHILS # (AUTO) 7.8 K/uL (1.8-7.7); NEUTROPHILS % (AUTO) 69.9 % (40.0-77.0); PLATELET COUNT (AUTO) 388 K/uL (130-400); RED BLOOD CELL COUNT(AUTO) 4.77 MIL/uL (4.50-6.20); RED CELL DISTRIBUTION WIDTH 18.2 % (11.0-15.5); WHITE BLOOD COUNT (AUTO) 11.2 K/uL (4.8-10.8)
[2023-07-26 10:57] LABS: APPEARANCE,URINE CLEAR (CLEAR); BILIRUBIN,URINE NEGATIVE (NEGATIVE); COLOR,URINE LIGHT-YELLOW (YELLOW); GLUCOSE, URINE (UA) NEGATIVE (NEGATIVE); KETONES,URINE NEGATIVE (NEGATIVE); LEUKOCYTE ESTERASE ,URINE NEGATIVE Leu/uL (NEGATIVE); MUCUS,URINE RARE LPF (None Seen); NITRATE,URINE NEGATIVE (NEGATIVE); OCCULT BLOOD,URINE NEGATIVE (NEGATIVE); PH,URINE 6.5 (5.0-8.0); PROTEIN,URINE NEGATIVE (NEGATIVE); UROBILINOGEN,URINE 0.2 mg/dL (0.2-1.0); WBC,URINE 0-1 /HPF (0-1)
[2023-07-26 10:58] LABS: CREATININE 0.8 mg/dL (0.5-1.3); POTASSIUM 4.1 mmol/L (3.5-5.1)
[2023-07-26 11:02] LABS: ALBUMIN 3.2 g/dL (3.5-5.0); BILIRUBIN,TOTAL 0.2 mg/dL (0.2-1.0); TOTAL PROTEIN, SERUM 7.9 g/dL (6.0-8.3)
[2023-07-26 13:30] VITALS: BP 154/82; PULSE 82; RESP 20; O2SAT 97
== END 2023-07-26 14:15 | disposition home or self-care (01) ==
LOC: EDH 10:09
DX: R31.9 Hematuria, unspecified (principal); G89.29 Other chronic pain; M54.50 Low back pain, unspecified; E11.9 Type 2 diabetes mellitus without complications; E78.00 Pure hypercholesterolemia, unspecified; I10 Essential (primary) hypertension; J45.909 Unspecified asthma, uncomplicated; Z79.51 Long term (current) use of inhaled steroids; Z79.82 Long term (current) use of aspirin; Z88.2 Allergy status to sulfonamides; Z91.041 Radiographic dye allergy status; Z91.018 Allergy to other foods
CPT/HCPCS: 36415; 80053; 81001; 83690; 85025; 99282

== ENCOUNTER 2023-09-11 12:35 | Emergency (ER) | payer OTHER ==
[~2023-09-11] VITALS: Ht 185.4 cm; Wt 182.3 kg
[2023-09-11 12:57] VITALS: BP 137/83; PULSE 102; RESP 20
[2023-09-11 13:33] LABS: BASOPHILS # (AUTO) 0.05 K/uL (0.00-0.20); BASOPHILS % (AUTO) 0.4 % (0.0-5.0); EOSINOPHILS # (AUTO) 0.37 K/uL (0.00-0.70); EOSINOPHILS % (AUTO) 2.9 % (0.0-8.0); HEMATOCRIT 36.9 % (42-54); IMMATURE GRANULOCYTE ABSOLUTE 0.05 K/uL (0-1); LYMPHOCYTES # (AUTO) 2.4 K/uL (1.0-4.8); LYMPHOCYTES % (AUTO) 18.5 % (21.0-51.0); MEAN CORPUSCULAR HEMOGLOBIN 21.9 pg (27.0-33.0); MEAN CORPUSCULAR HGB CONC 30.1 g/dL (32.0-36.0); MEAN CORPUSCULAR VOLUME 72.6 fL (79-99); MONOCYTES # (AUTO) 0.8 K/uL (0.1-1.0); MONOCYTES % (AUTO) 6.1 % (3.0-13.0); NEUTROPHILS # (AUTO) 9.3 K/uL (1.8-7.7); NEUTROPHILS % (AUTO) 71.7 % (40.0-77.0); PLATELET COUNT (AUTO) 365 K/uL (130-400); RED BLOOD CELL COUNT(AUTO) 5.08 MIL/uL (4.50-6.20); RED CELL DISTRIBUTION WIDTH 17.9 % (11.0-15.5)
[2023-09-11 13:47] LABS: CREATININE 0.9 mg/dL (0.5-1.3); POTASSIUM 3.8 mmol/L (3.5-5.1)
[2023-09-11 13:48] LABS: INR 0.95 (0.85-1.15); PROTHROMBIN TIME 11.2 SEC (9.6-11.6)
[2023-09-11 13:49] LABS: PARTIAL THROMBOPLASTIN TIME 29.9 SEC (26.3-35.5)
[2023-09-11 13:59] LABS: B-TYPE NATRIURETIC PEPTIDE < 5 pg/mL (0-100)
[2023-09-11 16:17] LABS: ABG OXYGEN SATURATION 95.8 % (95.0-99.0); ABG PCO2 42 mmHg (35-48); ABG PH 7.396 (7.35-7.450); VENT MODE, BG RA (ROOM AIR)
[2023-09-11] MEDS ORDERED: LEVO750T68 PO (16:28)
== END 2023-09-11 16:31 | disposition home or self-care (01) ==
LOC: EDH 12:35
DX: J98.4 Other disorders of lung (principal); I10 Essential (primary) hypertension; E11.9 Type 2 diabetes mellitus without complications; E78.00 Pure hypercholesterolemia, unspecified; J45.909 Unspecified asthma, uncomplicated; Z79.82 Long term (current) use of aspirin; Z79.899 Other long term (current) drug therapy; Z98.890 Other specified postprocedural states; Z90.89 Acquired absence of other organs; Z88.2 Allergy status to sulfonamides; Z88.8 Allergy status to other drugs, medicaments and biological substances
CPT/HCPCS: 36415; 36600; 71045; 80048; 82550; 82803; 83880; 84484; 85025; 85610; 85730; 93005

== ENCOUNTER 2024-01-13 12:26 | Inpatient (IN) | payer MEDICARE, OTHER ==
[~2024-01-13] VITALS: Ht 184.2 cm; Wt 187.4 kg
[~2024-01-13 12:26] MED LIST changes: +CHOL200074 PO; +DOXY100C5 PO; -FLUT1AER11 IH; +FLUT1AER13 IH; +IBUP-2077 PO; +LIDO20SO MM; +METO-391 PO; +METO5TAB2 PO; +OMEP20TA20 PO; +ONDA-243 PO; +PRED20B PO
[2024-01-13] MEDS: Solu-medROL 125MG VIAL IVP ONE (12:59)
[2024-01-13 13:03] LABS: BASOPHILS # (AUTO) 0.05 K/uL (0.00-0.20); BASOPHILS % (AUTO) 0.4 % (0.0-5.0); EOSINOPHILS # (AUTO) 0.31 K/uL (0.00-0.70); EOSINOPHILS % (AUTO) 2.2 % (0.0-8.0); HEMATOCRIT 38.1 % (42-54); IMMATURE GRANULOCYTE ABSOLUTE 0.06 K/uL (0-1); LYMPHOCYTES # (AUTO) 2.1 K/uL (1.0-4.8); MEAN CORPUSCULAR HEMOGLOBIN 22.3 pg (27.0-33.0); MEAN CORPUSCULAR HGB CONC 30.4 g/dL (32.0-36.0); MEAN CORPUSCULAR VOLUME 73.3 fL (79-99); MONOCYTES # (AUTO) 0.8 K/uL (0.1-1.0); NEUTROPHILS # (AUTO) 10.6 K/uL (1.8-7.7); PLATELET COUNT (AUTO) 334 K/uL (130-400); RED CELL DISTRIBUTION WIDTH 17.6 % (11.0-15.5); WHITE BLOOD COUNT (AUTO) 13.9 K/uL (4.8-10.8)
[2024-01-13 13:13] LABS: ABG HCO3 25.8 mmol/L (21.0-28.0); ABG OXYGEN SATURATION 94.9 % (94.0-98.0); ABG PCO2 42 mmHg (35-48); ABG PH 7.408 (7.350-7.450); CARBON MONOXIDE 0.2 % (0.5-1.5); DEVICE COMMENT RR PETE; HHb 5.1; PO2, ARTERIAL BG 77.2 mmHg (83.0-108.0); VENT MODE, BG ROOM AIR (ROOM AIR)
[2024-01-13 13:25] VITALS: PULSE 84; RESP 18
[2024-01-13] MEDS: IpraTROPium/alBUTERol SULFATE 3 ML SOLUTION IH ONE (13:28)
[2024-01-13 14:35] LABS: CREATININE 0.9 mg/dL (0.5-1.3)
[2024-01-13 14:40] LABS: ALBUMIN 3.1 g/dL (3.5-5.0); BILIRUBIN,TOTAL 0.1 mg/dL (0.2-1.0)
[2024-01-13 15:43] LABS: APPEARANCE,URINE CLEAR (CLEAR); BILIRUBIN,URINE NEGATIVE (NEGATIVE); COLOR,URINE LIGHT-YELLOW (YELLOW); GLUCOSE, URINE (UA) NEGATIVE (NEGATIVE); KETONES,URINE NEGATIVE (NEGATIVE); LEUKOCYTE ESTERASE ,URINE NEGATIVE Leu/uL (NEGATIVE); NITRATE,URINE NEGATIVE (NEGATIVE); OCCULT BLOOD,URINE NEGATIVE (NEGATIVE); PROTEIN,URINE 10 mg/dL (NEGATIVE)
[2024-01-13 15:46] LABS: ADD UA MICROSCOPIC YES
[2024-01-13 15:48] LABS: BACTERIA,URINE RARE /HPF (None Seen); MUCUS,URINE RARE LPF (None Seen); RBC,URINE 0-1 /HPF (0-1); SQUAMOUS EPITHELIAL CELL,UR RARE /HPF (0-2)
[2024-01-13 15:51] LABS: AMPHET/METH SCREEN,URINE NEGATIVE (NEGATIVE); BARBITURATE SCREEN, URINE NEGATIVE (NEGATIVE); BENZODIAZEPINES SCREEN,URINE NEGATIVE (NEGATIVE); CANNABINOID SCREEN,URINE NEGATIVE (NEGATIVE); COCAINE SCREEN,URINE NEGATIVE (NEGATIVE); OPIATE SCREEN,URINE NEGATIVE (NEGATIVE); PHENCYCLIDINE SCREEN,URINE NEGATIVE (NEGATIVE)
[2024-01-13 15:53] LABS: RAPID GROUP A STREP negative (NEGATIVE)
[2024-01-13 16:03] LABS: COVID19 (SARS ANTIGEN RAPID) PRESUMPTIVE NEGATIVE (NEGATIVE); INFLUENZA TYPE A Negative For Type A (NEGATIVE); INFLUENZA TYPE B Negative For Type B (NEGATIVE)
[2024-01-13] MEDS: furoSEMIDE 40MG VIAL IV ONE (16:35)
[2024-01-13] MEDS ORDERED: DEXTROSE 50%-WATER 50 ML DISP.SYRIN IV PRN (17:30)
[2024-01-13] MEDS ORDERED: acetaMINOPHEN 325 MG TAB PO PRN (17:30)
[2024-01-13] MEDS ORDERED: ondanSETRON 4MG INJ IVP PRN (17:30)
[2024-01-13] MEDS ORDERED: PoTASSium chloRIDE 20MEQ/100ML 100 ML IV PRN (17:30)
[2024-01-13] MEDS ORDERED: PoTASSium chl 10% ELIXIR 20MEQ 20 MEQ/15 ML UDCUP PO PRN (17:30)
[2024-01-13] MEDS ORDERED: MAGNESIUM 2GM PREMIX 50ML 50 ML IV PRN (17:30)
[2024-01-13] MEDS ORDERED: IpraTROPium/alBUTERol SULFATE 3 ML SOLUTION IH SCH (17:30)
[2024-01-13] MEDS ORDERED: PoTASSium chloRIDE 20MEQ ER 20 MEQ ERTAB PO PRN (17:30)
[2024-01-13] MEDS ORDERED: GLUCAGON 1MG KIT 1 MG ML IM PRN (17:30)
[2024-01-13] MEDS: levoFLOXacin 500 MG/D5W 100 ML 100 ML IV SCH (18:08)
[2024-01-13] MEDS: Solu-medROL 40MG VIAL IVP SCH (18:08)
[2024-01-13] MEDS: INSULIN humuLIN R 100 UNIT/ML 3ML SQ SCH (21:00)
[2024-01-13 21:45] VITALS: BP 177/86; PULSE 92; RESP 20; TEMP 97.7
[2024-01-13] MEDS: monteLUKAST sodIUM 10 MG TAB PO SCH (22:41)
[2024-01-14] VITALS (10 sets, daily range): BP systolic 119–168; BP diastolic 68–86; PULSE 85–104; RESP 18–20; TEMP 97.4–98.3; O2SAT 95–100
[2024-01-14 03:59] LABS: HEMATOCRIT 36.5 % (42-54); MEAN CORPUSCULAR HGB CONC 30.4 g/dL (32.0-36.0); MEAN CORPUSCULAR VOLUME 72.3 fL (79-99); RED BLOOD CELL COUNT(AUTO) 5.05 MIL/uL (4.50-6.20); RED CELL DISTRIBUTION WIDTH 17.8 % (11.0-15.5); WHITE BLOOD COUNT (AUTO) 18.9 K/uL (4.8-10.8)
[2024-01-14 04:19] LABS: ALBUMIN 3.3 g/dL (3.5-5.0); BILIRUBIN,TOTAL 0.2 mg/dL (0.2-1.0); CREATININE 1.1 mg/dL (0.5-1.3); POTASSIUM 3.8 mmol/L (3.5-5.1); TOTAL PROTEIN, SERUM 8.6 g/dL (6.0-8.3)
[2024-01-14 04:47] LABS: HEMOGLOBIN A1C 6.4 % (4.0-6.0)
[2024-01-14] MEDS: ceTIRIzine HCL 5 MG TABLET PO SCH (08:57)
[2024-01-14] MEDS: ENOXAPARIN SODIUM 40 MG/0.4 ML SYRINGE SQ SCH (08:57)
[2024-01-14] MEDS: metOPROLol sucCINATE 25 MG TAB.SR.24H PO ONE (10:00)
[2024-01-14] MEDS ORDERED: PHARMACY COMMUNICATION MISC SCH (18:00)
[2024-01-14] MEDS: predniSONE 20 MG TABLET PO SCH (19:28)
[2024-01-14] MEDS: predniSONE 20 MG TABLET ONE (19:30)
[2024-01-15 00:10] VITALS: PULSE 96; RESP 20; O2SAT 100
[2024-01-15 04:34] VITALS: BP 130/79; PULSE 82; RESP 18; TEMP 98.1
[2024-01-15 06:28] VITALS: PULSE 85; RESP 20; O2SAT 98
[2024-01-15 08:00] VITALS: BP 136/87; PULSE 73; RESP 18; TEMP 97.5
[2024-01-15 08:15] VITALS: O2SAT 95
[2024-01-15] MEDS: metOPROLol sucCINATE 25 MG TAB.SR.24H PO SCH (09:45)
[2024-01-15] MEDS: acetaMINOPHEN 325 MG TAB PO PRN (09:47)
[2024-01-15 12:02] VITALS: BP 144/70; PULSE 73; RESP 22; TEMP 97.9
== END 2024-01-15 13:55 | disposition home or self-care (01) | DRG 189 ==
LOC: EDH 12:26 → EDHIP 17:30 → 4DH 20:58
PROVIDERS: ADMIT Hospitalist; ATTEND Hospitalist
DX: J96.01 Acute respiratory failure with hypoxia (principal); J45.901 Unspecified asthma with (acute) exacerbation; Z68.43 Body mass index [BMI] 50.0-59.9, adult; E66.01 Morbid (severe) obesity due to excess calories; Z20.822 Contact with and (suspected) exposure to COVID-19; E11.40 Type 2 diabetes mellitus with diabetic neuropathy, unspecified; E11.65 Type 2 diabetes mellitus with hyperglycemia; E78.00 Pure hypercholesterolemia, unspecified; G47.33 Obstructive sleep apnea (adult) (pediatric); I11.0 Hypertensive heart disease with heart failure; I25.10 Atherosclerotic heart disease of native coronary artery without angina pectoris; I50.810 Right heart failure, unspecified; T38.0X5A Adverse effect of glucocorticoids and synthetic analogues, initial encounter; Y92.89 Other specified places as the place of occurrence of the external cause; Z79.4 Long term (current) use of insulin; Z82.49 Family history of ischemic heart disease and other diseases of the circulatory system; Z91.041 Radiographic dye allergy status; Z91.010 Allergy to peanuts; Z91.013 Allergy to seafood; Z88.2 Allergy status to sulfonamides; Z91.018 Allergy to other foods; Z83.3 Family history of diabetes mellitus; Z93.3 Colostomy status
CPT/HCPCS: 36415; 36600; 71045; 80053; 80061; 80305; 81001; 82435; 82550; 82803; 82947; 82948; 83036; 83605; 83880; 84132; 84145; 84295; 84484; 85018; 85025; 85027; 85378; 87426; 87804; 87880; 93005; 93970; 94640; 99291; G0378; J1650; J1815; J1940; J1956; J2919

== ENCOUNTER 2024-01-17 16:33 | Emergency (ER) | payer MEDICARE ==
[~2024-01-17] VITALS: Ht 185.4 cm; Wt 186.9 kg
[~2024-01-17 16:33] MED LIST changes: -CHOL1TAB PO; -CHOL200074 PO; -DICL100G60 TP; -DOXY100C5 PO; -EMPA10TA PO; -FLUT1AER13 IH; -IBUP-2077 PO; -LIDO20SO MM; -METO25TA6 PO; -METO5TAB2 PO; -NITR0.4T50 SL; -OMEP20TA20 PO; -ONDA-243 PO; -PRED20B PO
[2024-01-17 17:18] LABS: BASOPHILS # (AUTO) 0.04 K/uL (0.00-0.20); BASOPHILS % (AUTO) 0.3 % (0.0-5.0); EOSINOPHILS # (AUTO) 0.35 K/uL (0.00-0.70); EOSINOPHILS % (AUTO) 2.4 % (0.0-8.0); HEMATOCRIT 36.3 % (42-54); IMMATURE GRANULOCYTE ABSOLUTE 0.08 K/uL (0-1); LYMPHOCYTES % (AUTO) 20.2 % (21.0-51.0); MEAN CORPUSCULAR HEMOGLOBIN 21.9 pg (27.0-33.0); MEAN CORPUSCULAR HGB CONC 30.9 g/dL (32.0-36.0); MONOCYTES # (AUTO) 0.8 K/uL (0.1-1.0); MONOCYTES % (AUTO) 5.4 % (3.0-13.0); NEUTROPHILS # (AUTO) 10.5 K/uL (1.8-7.7); NEUTROPHILS % (AUTO) 71.2 % (40.0-77.0); PLATELET COUNT (AUTO) 346 K/uL (130-400); RED BLOOD CELL COUNT(AUTO) 5.11 MIL/uL (4.50-6.20); RED CELL DISTRIBUTION WIDTH 18.1 % (11.0-15.5); WHITE BLOOD COUNT (AUTO) 14.8 K/uL (4.8-10.8)
[2024-01-17 17:39] LABS: CREATININE 0.8 mg/dL (0.5-1.3); POTASSIUM 3.5 mmol/L (3.5-5.1)
[2024-01-17] MEDS: acetaMINOPHEN 500 MG TABLET PO ONE (17:53)
[2024-01-17] MEDS ORDERED: NAPR375T6 PO (19:58)
[2024-01-17] MEDS ORDERED: CYCL7.5T27 PO (19:58)
[2024-01-17 20:07] VITALS: BP 157/80; PULSE 95; RESP 20; TEMP 98.7; O2SAT 99
== END 2024-01-17 20:15 | disposition home or self-care (01) ==
LOC: EDBD 16:33 → EDH 16:33
DX: S86.911A Strain of unspecified muscle(s) and tendon(s) at lower leg level, right leg, initial encounter (principal); M25.551 Pain in right hip; R42 Dizziness and giddiness; E11.9 Type 2 diabetes mellitus without complications; I10 Essential (primary) hypertension; E66.01 Morbid (severe) obesity due to excess calories; J45.909 Unspecified asthma, uncomplicated; E78.00 Pure hypercholesterolemia, unspecified; Z68.44 Body mass index [BMI] 60.0-69.9, adult; Z88.2 Allergy status to sulfonamides; Z91.041 Radiographic dye allergy status; Z79.899 Other long term (current) drug therapy; Z93.3 Colostomy status; Z90.89 Acquired absence of other organs; Z90.49 Acquired absence of other specified parts of digestive tract; W01.198A Fall on same level from slipping, tripping and stumbling with subsequent striking against other object, initial encounter; Y93.E1 Activity, personal bathing and showering; Y92.091 Bathroom in other non-institutional residence as the place of occurrence of the external cause; Y99.8 Other external cause status
CPT/HCPCS: 36415; 71045; 73502; 73562; 80048; 84484; 85025; 93005

== ENCOUNTER 2024-01-30 18:20 | Emergency (ER) | payer MEDICARE ==
[~2024-01-30] VITALS: Ht 185.4 cm; Wt 181.0 kg
[~2024-01-30 18:20] MED LIST changes: +CYCL7.5T27 PO; +NAPR375T6 PO
[2024-01-30 18:46] LABS: BASOPHILS # (AUTO) 0.05 K/uL (0.00-0.20); BASOPHILS % (AUTO) 0.5 % (0.0-5.0); EOSINOPHILS # (AUTO) 0.34 K/uL (0.00-0.70); EOSINOPHILS % (AUTO) 3.1 % (0.0-8.0); HEMATOCRIT 34.2 % (42-54); IMMATURE GRANULOCYTE ABSOLUTE 0.05 K/uL (0-1); LYMPHOCYTES % (AUTO) 18.3 % (21.0-51.0); MEAN CORPUSCULAR HEMOGLOBIN 22.3 pg (27.0-33.0); MEAN CORPUSCULAR HGB CONC 30.7 g/dL (32.0-36.0); MEAN CORPUSCULAR VOLUME 72.8 fL (79-99); MONOCYTES # (AUTO) 0.7 K/uL (0.1-1.0); MONOCYTES % (AUTO) 6.4 % (3.0-13.0); NEUTROPHILS # (AUTO) 7.9 K/uL (1.8-7.7); NEUTROPHILS % (AUTO) 71.2 % (40.0-77.0); PLATELET COUNT (AUTO) 309 K/uL (130-400); RED CELL DISTRIBUTION WIDTH 17.9 % (11.0-15.5); WHITE BLOOD COUNT (AUTO) 11.1 K/uL (4.8-10.8)
[2024-01-30 18:56] LABS: CREATININE 0.8 mg/dL (0.5-1.3); POTASSIUM 3.7 mmol/L (3.5-5.1)
[2024-01-30 19:11] LABS: B-TYPE NATRIURETIC PEPTIDE < 5 pg/mL (0-100)
[2024-01-30 19:44] LABS: APPEARANCE,URINE CLEAR (CLEAR); BILIRUBIN,URINE NEGATIVE (NEGATIVE); COLOR,URINE LIGHT-YELLOW (YELLOW); GLUCOSE, URINE (UA) NEGATIVE (NEGATIVE); KETONES,URINE NEGATIVE (NEGATIVE); LEUKOCYTE ESTERASE ,URINE NEGATIVE Leu/uL (NEGATIVE); NITRATE,URINE NEGATIVE (NEGATIVE); OCCULT BLOOD,URINE NEGATIVE (NEGATIVE); PROTEIN,URINE NEGATIVE (NEGATIVE); UROBILINOGEN,URINE 0.2 mg/dL (0.2-1.0)
[2024-01-30 19:46] LABS: ADD UA MICROSCOPIC NO
[2024-01-30] MEDS ORDERED: AZIT250T9 PO (20:58)
[2024-01-30] MEDS ORDERED: METH4TAB3 PO (20:58)
[2024-01-30] MEDS: IpraTROPium/alBUTERol SULFATE 3 ML SOLUTION IH ONE (21:34)
[2024-01-30 21:35] VITALS: PULSE 82; RESP 15
[2024-01-30 22:07] VITALS: BP 135/78; PULSE 63; RESP 15; TEMP 98.1; O2SAT 97
== END 2024-01-30 22:29 | disposition home or self-care (01) ==
LOC: EDH 18:20
DX: J45.901 Unspecified asthma with (acute) exacerbation (principal); E11.9 Type 2 diabetes mellitus without complications; I10 Essential (primary) hypertension; I25.10 Atherosclerotic heart disease of native coronary artery without angina pectoris; E66.01 Morbid (severe) obesity due to excess calories; Z88.2 Allergy status to sulfonamides; Z91.041 Radiographic dye allergy status; Z91.018 Allergy to other foods; Z79.899 Other long term (current) drug therapy; Z79.82 Long term (current) use of aspirin; Z90.49 Acquired absence of other specified parts of digestive tract; Z90.89 Acquired absence of other organs
CPT/HCPCS: 36415; 71045; 80048; 81003; 82550; 83880; 84484; 85025; 93005; 94640

== ENCOUNTER 2024-02-05 16:04 | Emergency (ER) | payer MEDICARE ==
[~2024-02-05] VITALS: Ht 175.3 cm; Wt 158.8 kg
[~2024-02-05 16:04] MED LIST changes: +AZIT250T9 PO; +METH4TAB3 PO; +NAPR-1505 PO; -NAPR375T6 PO
[2024-02-05 16:44] LABS: BASOPHILS # (AUTO) 0.05 K/uL (0.00-0.20); BASOPHILS % (AUTO) 0.4 % (0.0-5.0); EOSINOPHILS # (AUTO) 0.35 K/uL (0.00-0.70); HEMATOCRIT 35.5 % (42-54); IMMATURE GRANULOCYTE ABSOLUTE 0.06 K/uL (0-1); LYMPHOCYTES # (AUTO) 2.4 K/uL (1.0-4.8); LYMPHOCYTES % (AUTO) 20.4 % (21.0-51.0); MEAN CORPUSCULAR HEMOGLOBIN 22.6 pg (27.0-33.0); MONOCYTES # (AUTO) 0.9 K/uL (0.1-1.0); MONOCYTES % (AUTO) 7.9 % (3.0-13.0); NEUTROPHILS # (AUTO) 7.9 K/uL (1.8-7.7); NEUTROPHILS % (AUTO) 67.8 % (40.0-77.0); PLATELET COUNT (AUTO) 352 K/uL (130-400); RED BLOOD CELL COUNT(AUTO) 4.86 MIL/uL (4.50-6.20); RED CELL DISTRIBUTION WIDTH 17.9 % (11.0-15.5); WHITE BLOOD COUNT (AUTO) 11.7 K/uL (4.8-10.8)
[2024-02-05 17:01] LABS: CREATININE 0.8 mg/dL (0.5-1.3); POTASSIUM 3.6 mmol/L (3.5-5.1)
[2024-02-05] MEDS: ketOROlac 30MG VIAL (30MG/ML) IVP ONE (17:01)
[2024-02-05 17:03] LABS: B-TYPE NATRIURETIC PEPTIDE < 5 pg/mL (0-100)
[2024-02-05] MEDS ORDERED: IBUP-2077 PO (18:15)
[2024-02-05] MEDS: dexaMETHasone SOD PHOSPHATE 4 MG/ML 1ML VIAL IVP ONE (18:36)
[2024-02-05 19:21] VITALS: BP 139/71; PULSE 87; RESP 18; TEMP 98.2; O2SAT 98
== END 2024-02-05 19:22 | disposition home or self-care (01) ==
LOC: EDH 16:04 → EDBD 16:04 → EDH 19:22
DX: M94.0 Chondrocostal junction syndrome [Tietze] (principal); E87.1 Hypo-osmolality and hyponatremia; E66.01 Morbid (severe) obesity due to excess calories; E11.9 Type 2 diabetes mellitus without complications; I10 Essential (primary) hypertension; F41.9 Anxiety disorder, unspecified; Z79.82 Long term (current) use of aspirin; Z79.899 Other long term (current) drug therapy; Z88.2 Allergy status to sulfonamides; Z88.8 Allergy status to other drugs, medicaments and biological substances; Z90.49 Acquired absence of other specified parts of digestive tract; Z90.89 Acquired absence of other organs; Z91.041 Radiographic dye allergy status; Z98.890 Other specified postprocedural states
CPT/HCPCS: 99285; 96374; 71045; 96375; 82550; 84484; 80048; 83880; 85025; 36415; 93005; J1100; J1885

== ENCOUNTER 2024-02-22 20:47 | Inpatient (IN) | payer MEDICARE ==
[~2024-02-22] VITALS: Ht 185.4 cm; Wt 182.8 kg
[~2024-02-22 20:47] MED LIST changes: +IBUP-2077 PO
[2024-02-22 21:23] LABS: BASOPHILS # (AUTO) 0.03 K/uL (0.00-0.20); BASOPHILS % (AUTO) 0.3 % (0.0-5.0); EOSINOPHILS # (AUTO) 0.05 K/uL (0.00-0.70); EOSINOPHILS % (AUTO) 0.5 % (0.0-8.0); HEMATOCRIT 35.1 % (42-54); IMMATURE GRANULOCYTE ABSOLUTE 0.04 K/uL (0-1); LYMPHOCYTES # (AUTO) 1.2 K/uL (1.0-4.8); LYMPHOCYTES % (AUTO) 12.3 % (21.0-51.0); MEAN CORPUSCULAR HEMOGLOBIN 22.3 pg (27.0-33.0); MEAN CORPUSCULAR HGB CONC 30.8 g/dL (32.0-36.0); MEAN CORPUSCULAR VOLUME 72.4 fL (79-99); MONOCYTES % (AUTO) 9.7 % (3.0-13.0); NEUTROPHILS # (AUTO) 7.5 K/uL (1.8-7.7); NEUTROPHILS % (AUTO) 76.8 % (40.0-77.0); PLATELET COUNT (AUTO) 303 K/uL (130-400); RED BLOOD CELL COUNT(AUTO) 4.85 MIL/uL (4.50-6.20); RED CELL DISTRIBUTION WIDTH 17.4 % (11.0-15.5); WHITE BLOOD COUNT (AUTO) 9.8 K/uL (4.8-10.8)
[2024-02-22 21:25] LABS: APPEARANCE,URINE CLEAR (CLEAR); BILIRUBIN,URINE NEGATIVE (NEGATIVE); COLOR,URINE LIGHT-YELLOW (YELLOW); GLUCOSE, URINE (UA) NEGATIVE (NEGATIVE); KETONES,URINE NEGATIVE (NEGATIVE); LEUKOCYTE ESTERASE ,URINE NEGATIVE Leu/uL (NEGATIVE); NITRATE,URINE NEGATIVE (NEGATIVE); OCCULT BLOOD,URINE NEGATIVE (NEGATIVE); PROTEIN,URINE NEGATIVE (NEGATIVE); UROBILINOGEN,URINE 0.2 mg/dL (0.2-1.0)
[2024-02-22 21:28] LABS: ADD UA MICROSCOPIC YES; MUCUS,URINE RARE LPF (None Seen); WBC,URINE 0-1 /HPF (0-1)
[2024-02-22 21:30] LABS: RAPID GROUP A STREP negative (NEGATIVE)
[2024-02-22 21:30] LABS: POTASSIUM 3.6 mmol/L (3.5-5.1)
[2024-02-22 21:41] LABS: COVID19 (SARS ANTIGEN RAPID) PRESUMPTIVE NEGATIVE (NEGATIVE); INFLUENZA TYPE A Negative For Type A (NEGATIVE); INFLUENZA TYPE B Negative For Type B (NEGATIVE)
[2024-02-22] MEDS: 0.9% NACL 500ML IV.SOLN 500 ML IV ONE (21:48)
[2024-02-22] MEDS ORDERED: ketOROlac 30MG VIAL (30MG/ML) IVP ONE (22:00)
[2024-02-22] MEDS: morPHINE 4 MG SYG IVP ONE (22:20)
[2024-02-23] VITALS (10 sets, daily range): BP systolic 117–155; BP diastolic 71–95; PULSE 90–111; RESP 18–20; TEMP 97.6–98.9; O2SAT 94–99
[2024-02-23] MEDS ORDERED: ondanSETRON 4MG INJ IVP PRN (01:30)
[2024-02-23] MEDS ORDERED: hydrALAZine 20MG/ML VIAL IV PRN (01:30)
[2024-02-23] MEDS ORDERED: acetaMINOPHEN 650 MG SUPPOSITORY RC PRN (01:30)
[2024-02-23] MEDS ORDERED: LAbetaLOL 20MG SYG IV PRN (01:30)
[2024-02-23] MEDS ORDERED: METO5TAB2 PO (02:46)
[2024-02-23] MEDS: HYDROcodone/APAP 5/325 1 TAB TABLET PO PRN (03:53)
[2024-02-23] MEDS: ALBUTEROL 0.083% 2.5 MG/3 ML INH IH PRN (07:25)
[2024-02-23] MEDS: INSULIN humuLIN R 100 UNIT/ML 3ML SQ SCH ×2 (07:30→16:30)
[2024-02-23] MEDS: FERROUS SULFATE 325 MG TABLET.DR PO SCH (09:22)
[2024-02-23] MEDS: FAMOTIDINE 20MG TAB PO SCH (09:22)
[2024-02-23] MEDS: ASCORBIC ACID 500 MG TAB PO SCH (09:22)
[2024-02-23] MEDS ORDERED: FLUT1DIS4 IH (09:29)
[2024-02-23 11:02] LABS: BASOPHILS # (AUTO) 0.03 K/uL (0.00-0.20); BASOPHILS % (AUTO) 0.3 % (0.0-5.0); EOSINOPHILS # (AUTO) 0.05 K/uL (0.00-0.70); EOSINOPHILS % (AUTO) 0.5 % (0.0-8.0); HEMATOCRIT 34.1 % (42-54); IMMATURE GRANULOCYTE ABSOLUTE 0.05 K/uL (0-1); LYMPHOCYTES # (AUTO) 1.2 K/uL (1.0-4.8); LYMPHOCYTES % (AUTO) 11.9 % (21.0-51.0); MEAN CORPUSCULAR HEMOGLOBIN 22.7 pg (27.0-33.0); MEAN CORPUSCULAR HGB CONC 30.2 g/dL (32.0-36.0); MEAN CORPUSCULAR VOLUME 75.1 fL (79-99); MONOCYTES # (AUTO) 1.1 K/uL (0.1-1.0); MONOCYTES % (AUTO) 11.1 % (3.0-13.0); NEUTROPHILS # (AUTO) 7.6 K/uL (1.8-7.7); NEUTROPHILS % (AUTO) 75.7 % (40.0-77.0); PLATELET COUNT (AUTO) 260 K/uL (130-400); RED BLOOD CELL COUNT(AUTO) 4.54 MIL/uL (4.50-6.20); RED CELL DISTRIBUTION WIDTH 17.6 % (11.0-15.5); WHITE BLOOD COUNT (AUTO) 10.1 K/uL (4.8-10.8)
[2024-02-23] MEDS ORDERED: LACTULOSE 20 GM/30 ML UDCUP PO PRN (17:00)
[2024-02-23] MEDS: LACTULOSE 20 GM/30 ML UDCUP PO ONE (18:01)
[2024-02-23] MEDS: CEFTRIAXONE 2GM VIAL IVPB SCH (18:01)
[2024-02-23] MEDS: dexaMETHasone SOD PHOSPHATE 4 MG/ML 1ML VIAL IV SCH (18:02)
[2024-02-24] VITALS (11 sets, daily range): BP systolic 123–161; BP diastolic 62–91; PULSE 75–92; RESP 18–20; TEMP 97.8–98.9; O2SAT 94–98
[2024-02-24 05:43] LABS: BASOPHILS # (AUTO) 0.01 K/uL (0.00-0.20); BASOPHILS % (AUTO) 0.1 % (0.0-5.0); HEMATOCRIT 37.1 % (42-54); IMMATURE GRANULOCYTE ABSOLUTE 0.04 K/uL (0-1); LYMPHOCYTES # (AUTO) 1.1 K/uL (1.0-4.8); LYMPHOCYTES % (AUTO) 10.8 % (21.0-51.0); MEAN CORPUSCULAR HEMOGLOBIN 22.6 pg (27.0-33.0); MEAN CORPUSCULAR HGB CONC 30.5 g/dL (32.0-36.0); MEAN CORPUSCULAR VOLUME 74.2 fL (79-99); MONOCYTES # (AUTO) 0.4 K/uL (0.1-1.0); MONOCYTES % (AUTO) 3.5 % (3.0-13.0); NEUTROPHILS # (AUTO) 8.6 K/uL (1.8-7.7); NEUTROPHILS % (AUTO) 85.2 % (40.0-77.0); PLATELET COUNT (AUTO) 287 K/uL (130-400); RED CELL DISTRIBUTION WIDTH 17.3 % (11.0-15.5); WHITE BLOOD COUNT (AUTO) 10.1 K/uL (4.8-10.8)
[2024-02-24 05:49] LABS: CREATININE 0.9 mg/dL (0.5-1.3); MAGNESIUM 2.2 mg/dL (1.80-2.40); PHOSPHORUS 3.6 mg/dL (2.5-4.9); POTASSIUM 4.1 mmol/L (3.5-5.1)
[2024-02-24] MEDS ORDERED: RACEPINEPHRINE HCL 2.25% 0.5 ML NEB SOLN NEB PRN (09:30)
[2024-02-24] MEDS: ASPIRIN 81MG CHEW TAB PO SCH (09:39)
[2024-02-24] MEDS: metOPROLol sucCINATE 50 MG TAB.SR.24H PO SCH (09:39)
[2024-02-24 09:46] LABS: ABG BASE EXCESS -3.3 mmol/L (-2.0-3.0); ABG HCO3 20.4 mmol/L (21.0-28.0); ABG OXYGEN SATURATION 95.7 % (94.0-98.0); ABG PCO2 33 mmHg (35-48); DEVICE COMMENT RR NOEMI; PO2, ARTERIAL BG 77.2 mmHg (83.0-108.0); VENT MODE, BG RA (ROOM AIR)
[2024-02-24] MEDS: AZITHROMYCIN 500MG+NS 250ML 250 ML IVPB SCH (16:53)
[2024-02-24] MEDS ORDERED: RACEPINEPHRINE HCL 2.25% 0.5 ML NEB SOLN NEB SCH (17:00)
[2024-02-24] MEDS: RACEPINEPHRINE HCL 2.25% 0.5 ML NEB SOLN NEB SCH (19:10)
[2024-02-24] MEDS: dexaMETHasone SOD PHOSPHATE 4 MG/ML 1ML VIAL IV SCH (20:38)
[2024-02-25] VITALS (7 sets, daily range): BP systolic 133–157; BP diastolic 66–82; PULSE 71–95; RESP 18–21; TEMP 97.5–98.4; O2SAT 97–98
[2024-02-25] MEDS: acetaMINOPHEN 325 MG TAB PO PRN (03:22)
== END 2024-02-25 12:10 | disposition short-term general hospital (02) | DRG 202 ==
LOC: EDH 20:47 → EDHIP 02-23 00:44 → OBSVTOIN 02-23 00:44 → INTOOBSV 02-23 00:44 → 3CH 02-23 02:43 → 2AH 02-24 10:31
PROVIDERS: ADMIT Internal Medicine Critical Care Medicine; ATTEND Internal Medicine Critical Care Medicine
DX: J20.9 Acute bronchitis, unspecified (principal); E87.1 Hypo-osmolality and hyponatremia; Z68.43 Body mass index [BMI] 50.0-59.9, adult; R65.10 Systemic inflammatory response syndrome (SIRS) of non-infectious origin without acute organ dysfunction; I10 Essential (primary) hypertension; E66.01 Morbid (severe) obesity due to excess calories; G47.33 Obstructive sleep apnea (adult) (pediatric); F32.A Depression, unspecified; J45.909 Unspecified asthma, uncomplicated; E78.5 Hyperlipidemia, unspecified; T88.4XXA Failed or difficult intubation, initial encounter; Z20.822 Contact with and (suspected) exposure to COVID-19; T78.1XXA Other adverse food reactions, not elsewhere classified, initial encounter; K59.00 Constipation, unspecified; E86.0 Dehydration; E11.40 Type 2 diabetes mellitus with diabetic neuropathy, unspecified; Z83.3 Family history of diabetes mellitus; Z82.49 Family history of ischemic heart disease and other diseases of the circulatory system; Z91.010 Allergy to peanuts; Z93.3 Colostomy status; Z79.899 Other long term (current) drug therapy
CPT/HCPCS: 36415; 36600; 70490; 71045; 80048; 81001; 82803; 82948; 83735; 83880; 84100; 84145; 85025; 85378; 87426; 87804; 87880; 93970; 94640; 94664; 96361; 96375; G0378; J0456; J0696; J1100; J2270

== ENCOUNTER 2024-03-01 22:14 | Emergency (ER) | payer MEDICARE ==
[~2024-03-01] VITALS: Ht 185.4 cm; Wt 182.8 kg
[~2024-03-01 22:14] MED LIST changes: -ALBU6.7H14 IH; -AZIT250T9 PO; -CYCL7.5T27 PO; +FLUT1DIS4 IH; -IBUP-2077 PO; -IPRAHFA IH; -METH4TAB3 PO; -NAPR-1505 PO
[2024-03-01] MEDS: dexaMETHasone SOD PHOSPHATE 4 MG/ML 1ML VIAL IVP ONE (22:53)
[2024-03-01] MEDS: ketOROlac 15MG/ML VIAL (15MG/ML) IV STA (22:53)
[2024-03-01 23:04] LABS: BASOPHILS # (AUTO) 0.03 K/uL (0.00-0.20); BASOPHILS % (AUTO) 0.2 % (0.0-5.0); EOSINOPHILS # (AUTO) 0.19 K/uL (0.00-0.70); EOSINOPHILS % (AUTO) 1.2 % (0.0-8.0); HEMATOCRIT 38.8 % (42-54); IMMATURE GRANULOCYTE ABSOLUTE 0.16 K/uL (0-1); LYMPHOCYTES # (AUTO) 3.6 K/uL (1.0-4.8); LYMPHOCYTES % (AUTO) 22.6 % (21.0-51.0); MEAN CORPUSCULAR HEMOGLOBIN 22.3 pg (27.0-33.0); MEAN CORPUSCULAR HGB CONC 30.9 g/dL (32.0-36.0); MEAN CORPUSCULAR VOLUME 72.1 fL (79-99); MONOCYTES # (AUTO) 1.2 K/uL (0.1-1.0); MONOCYTES % (AUTO) 7.3 % (3.0-13.0); NEUTROPHILS # (AUTO) 10.7 K/uL (1.8-7.7); NEUTROPHILS % (AUTO) 67.7 % (40.0-77.0); PLATELET COUNT (AUTO) 332 K/uL (130-400); RED BLOOD CELL COUNT(AUTO) 5.38 MIL/uL (4.50-6.20); RED CELL DISTRIBUTION WIDTH 17.9 % (11.0-15.5); WHITE BLOOD COUNT (AUTO) 15.8 K/uL (4.8-10.8)
[2024-03-01 23:12] LABS: CREATININE 0.9 mg/dL (0.5-1.3); POTASSIUM 3.6 mmol/L (3.5-5.1)
[2024-03-02] MEDS: CLINDAMYCIN IVPB 600MG/50ML 50 ML IV STA (01:08)
[2024-03-02 02:30] VITALS: BP 155/66; PULSE 91; RESP 20; TEMP 98.8; O2SAT 95
== END 2024-03-02 03:05 | disposition short-term general hospital (02) ==
LOC: EDH 22:14
DX: J03.90 Acute tonsillitis, unspecified (principal); D72.829 Elevated white blood cell count, unspecified; E11.9 Type 2 diabetes mellitus without complications; I10 Essential (primary) hypertension; J45.909 Unspecified asthma, uncomplicated; Z79.51 Long term (current) use of inhaled steroids; Z79.82 Long term (current) use of aspirin; Z79.899 Other long term (current) drug therapy; Z88.2 Allergy status to sulfonamides; Z88.8 Allergy status to other drugs, medicaments and biological substances; Z90.49 Acquired absence of other specified parts of digestive tract; Z90.89 Acquired absence of other organs; Z91.041 Radiographic dye allergy status; Z98.890 Other specified postprocedural states
CPT/HCPCS: 99285; 70490; 96375; 80048; 85025; 87880; 36415; 96365; J1100; J1885; J3490

== ENCOUNTER 2024-06-07 23:18 | Emergency (ER) | payer OTHER ==
[~2024-06-07] VITALS: Ht 186.7 cm; Wt 167.8 kg
[~2024-06-07 23:18] MED LIST changes: +DOCU-116 PO; +FLUT1BLS15 IH; -FLUT1DIS4 IH; +LIRA0.6P SQ; +OXYM-30 NS
--- NOTE | 2024-06-08 00:41 | NUR ---
PT LEFT TO CT AT THIS TIME
--- NOTE | 2024-06-08 01:10 | HMCIMG ---
CT ABDOMEN/PELVIS W/O CONTRAST HISTORY: Low back pain COMPARISON: 05/24/2024 . TECHNIQUE: Multiple sequential axial images of the abdomen and pelvis were obtained from the dome of the diaphragm through symphysis pubis. Patient was not given contrast through intravenous route. Oral contrast was not given. FINDINGS: No pleural effusion is seen bilaterally. There is no evidence of parenchymal disease or pulmonary nodule of the visualized lower lungs. Degenerative changes of the thoracolumbar spine are present. The heart is not enlarged. The liver is enlarged and fatty changes measuring 20 cm . There is soft tissue swelling noted in the left lower abdominal wall anteriorly. There may be fluid collection in this area measuring 10 x 4.4 cm may be related to abscess collection. The liver, spleen, adrenal glands and pancreas are unremarkable. There is no evidence of hydronephrosis bilaterally. No evidence of renal stone is seen. Fecal material is seen in the colon. There are normal size retroperitoneal and mesenteric lymph nodes. No ascites is seen. Atherosclerotic changes are present. Pelvic sidewalls are symmetric bilaterally. Bladder is well distended without wall thickening. IMPRESSION: 1. There is soft tissue swelling noted in the left lower abdominal wall anteriorly. There may be fluid collection in this area measuring 10 x 4.4 cm may be related to abscess collection. No hydronephrosis is seen. CT was performed with one or more following dose reduction techniques: automated exposure control, adjustment of the mA and kv according to patient's size, or use of a iterative reconstruction technique.
[2024-06-08 01:16] LABS: BASOPHILS # (AUTO) 0.08 K/uL (0.00-0.20); BASOPHILS % (AUTO) 0.7 % (0.0-5.0); EOSINOPHILS # (AUTO) 0.47 K/uL (0.00-0.70); EOSINOPHILS % (AUTO) 4.3 % (0.0-8.0); HEMATOCRIT 37.4 % (42-54); IMMATURE GRANULOCYTE ABSOLUTE 0.05 K/uL (0-1); LYMPHOCYTES # (AUTO) 2.1 K/uL (1.0-4.8); LYMPHOCYTES % (AUTO) 19.3 % (21.0-51.0); MEAN CORPUSCULAR HEMOGLOBIN 23.7 pg (27.0-33.0); MEAN CORPUSCULAR HGB CONC 31.3 g/dL (32.0-36.0); MEAN CORPUSCULAR VOLUME 75.7 fL (79-99); MONOCYTES # (AUTO) 0.6 K/uL (0.1-1.0); MONOCYTES % (AUTO) 5.7 % (3.0-13.0); NEUTROPHILS # (AUTO) 7.6 K/uL (1.8-7.7); NEUTROPHILS % (AUTO) 69.5 % (40.0-77.0); PLATELET COUNT (AUTO) 353 K/uL (130-400); RED BLOOD CELL COUNT(AUTO) 4.94 MIL/uL (4.50-6.20)
--- NOTE | 2024-06-08 01:16 | ERN ---
ED Note History of Present Illness Stated Complaint: NON TRAUMATIC LOWER BACK PAIN X 4 HOURS Chief Complaint: Back Pain or Injury Time Seen by MD: 23:23 Time Seen by Midlevel: 23:23 Dictation: The patient is a 43-year-old male with a history of hypertension, diabetes, hyperlipidemia, multiple abdominal surgeries who presents to the emergency department with complaints of left flank pain, lower back pain that radiates to the front onset prior to arrival. Patient denies any nausea or vomiting, denies any urinary or fecal incontinence. Denies any trauma. Denies any hematuria. Denies fevers. Allergies: Coded Allergies: Sulfa (Sulfonamide Antibiotics) (Unverified Allergy, Unknown, 03/08/22) iodine (Unverified Allergy, Unknown, 03/08/22) onion (Unverified Allergy, Unknown, 03/08/22) Uncoded Allergies: peanuts (Allergy, Unknown, 03/08/22) seafood (Allergy, Unknown, 03/08/22) Home Meds Active Scripts Docusate Sodium (Colace) 100 Mg Capsule, 1 CAP PO BID for 30 Days, #60 CAP 0 Refills Prov:LEVI GONSALEZ NP 05/28/24 Reported Medications Liraglutide (Victoza 2-Graham) 0.6 Mg/0.1 Ml (18 Mg/3 Ml) Pen.injctr, 1.8 MG SQ DAILY 05/25/24 Fluticasone/Umeclidin/Vilanter (Trelegy Ellipta 200-62.5-25) 200-62.5 Blst.w.dev, 1 PUFF IH DAILY for 30 Days, #60 EACH 0 Refills 05/25/24 Oxymetazoline HCl (Oxymetazoline HCl) 0.05 % Tim[place]in, 1 SPRAY NS DAILY for 30 Days, #15 ML 0 Refills 05/25/24 Metoprolol Succinate (Metoprolol Succinate) 50 Mg Tab.er.24h, 50 MG PO DAILY, TAB 10/01/23 Fluticasone Propionate (Flonase Nasal [place]) 50 Mcg/Timblin [place], 50 MCG NASAL DAILY PRN for NASAL CONGESTION, SPRAY 03/14/22 Aspirin (Aspirin) 81 Mg Tab.chew, 81 MG PO DAILY, TAB.CHEW 03/08/22 Past Medical History Past Medical History: Anxiety, Asthma, Diabetes-Type II, Hypertension Additional Past Medical Hx: HERNIA / COLOSTOMY, INTESTINAL TUMORS Surgical History: Appendectomy, Tonsillectomy, Other Surgical History Other: COLOSTOMY AND REVERSAL Family History: DM, HTN Social History: Negative, Lives with family RN Note Reviewed/Agreed w/PFSH: Yes Review of System Dictation Constitutional: Negative for fever,chills, and weight loss Eyes: Negative for injury, pain,redness, and discharge ENT: Negative for injury,pain or swelling Cardiovascular: Negative for chest pain, palpitations, and edema Respiratory: Negative for shortness of breath, cough, and wheezing, Abdomen/GI: Negative for nausea, vomiting, diarrhea, and constipation positive for left lower abdominal pain Back: Negative for injury and pain : Negative for injury, bleeding and discharge positive for low back pain MS/Extremity: Negative for injury and deformity Skin: Negative for rash, and discoloration Neuro: Negative for headache, weakness, numbness, tingling, and seizure Psych: Negative for suicide ideation, homicidal ideation, and hallucinations Initial Vital Sign VS Vital Signs Date Time Temp Pulse Resp B/P (MAP) Pulse Ox O2 Delivery O2 Flow Rate FiO2 06/07/24 23:23 98.4 94 18 147/88 96 Room Air* 0 21 Physical Exam Dictation Vital Signs reviewed General Appearance: Alert, oriented x 3, no acute distress, well developed, nourished. Head and Face: non-traumatic. Eyes: PERRL, pink conjunctivas, eyelid no trauma, anterior chamber with arcus senilis. Ears: Pinnas intact and no signs of trauma or erythema ear canals clear and no discharge TM no erythema Nose: No discharge, no bleeding. Oropharynx: Mouth normal, tongue pink. pharynx clear,no erythema, tonsils no exudates, no abscesses noted, mucous membrane moist Neck: Supple, non-tender, no thyromegaly, no masses, no JVD, no bruits Breast:Deferred Chest:No tenderness, no crepitus, no paradoxical movement, no retractions Lungs:Clear, well-ventilated, symmetric, no rales, no wheezing, no rhonchi, no stridor, good breath sounds bilaterally Heart: Regular rate, regular rhythm, no murmur, no gallops Vascular: no peripheral edema, Abdomen: Soft, positive bowel sounds, nondistended, no guarding, nontender, no rebound, no masses no hepatomegaly, no splenomegaly, no Ross's sign, no hernias. Rectal: Deferred Genital: Deferred Neurological: Normal speech, motor function intact, sensory function intact Musculoskeletal: Neck nontender, full range of motion, back nontender, full range of motion, Extremities: nontender, full range of motion low back tenderness Skin: Color pink, dry, no turgor, no rash, no lacerations, no abrasions, no contusions. Lymphatic: Deferred Results (Laboratory/Radiology) Laboratory/Radiology Laboratory Tests Test 06/08/24 01:02 06/08/24 02:15 White Blood Count 11.0 K/uL (4.8-10.8) H Red Blood Count 4.94 MIL/uL (4.50-6.20) Hemoglobin 11.7 g/dL (14.0-18.0) L Hematocrit 37.4 % (42-54) L Mean Corpuscular Volume 75.7 fL (79-99) L Mean Corpuscular Hemoglobin 23.7 pg (27.0-33.0) L Mean Corpuscular Hemoglobin Concent 31.3 g/dL (32.0-36.0) L Red Cell Distribution Width 18.0 % (11.0-15.5) H Platelet Count 353 K/uL (130-400) Mean Platelet Volume 10.0 fL (7.5-10.5) Immature Granulocyte % (Auto) 0.5 % (0-1) Neutrophils (%) (Auto) 69.5 % (40.0-77.0) Lymphocytes (%) (Auto) 19.3 % (21.0-51.0) L Monocytes (%) (Auto) 5.7 % (3.0-13.0) Eosinophils (%) (Auto) 4.3 % (0.0-8.0) Basophils (%) (Auto) 0.7 % (0.0-5.0) Neutrophils # (Auto) 7.6 K/uL (1.8-7.7) Lymphocytes # (Auto) 2.1 K/uL (1.0-4.8) Monocytes # (Auto) 0.6 K/uL (0.1-1.0) Eosinophils # (Auto) 0.47 K/uL (0.00-0.70) Basophils # (Auto) 0.08 K/uL (0.00-0.20) Absolute Immature Granulocyte (auto 0.05 K/uL (0-1) Nucleated Red Blood Cells 0.0 % (0.0-0.19) Red Blood Cell Morphology See comments Sodium Level 138 mmol/L (136-145) Potassium Level 3.5 mmol/L (3.5-5.1) Chloride Level 103 mmol/L (101-111) Carbon Dioxide Level 31 mmol/L (21-32) Blood Urea Nitrogen 6 mg/dL (7-18) L Creatinine 0.8 mg/dL (0.5-1.3) Glomerular Filtration Rate Calc 112 mL/min (>90) Random Glucose 104 mg/dL (70-105) Total Calcium 8.5 mg/dL (8.5-10.1) Urine Color YELLOW (YELLOW) Urine Appearance CLEAR (CLEAR) Urine pH 6.0 (5.0-8.0) Urine Specific [place] 1.027 (1.001-1.031) Urine Protein 20 mg/dL (NEGATIVE) H Urine Glucose (UA) NEGATIVE mg/dL (NEGATIVE) Urine Ketones NEGATIVE mg/dL (NEGATIVE) Urine Occult Blood NEGATIVE (NEGATIVE) Urine Nitrate NEGATIVE (NEGATIVE) Urine Bilirubin NEGATIVE mg/dL (NEGATIVE) Urine Urobilinogen 2.0 mg/dL (0.2-1.0) H Urine Leukocyte Esterase NEGATIVE Tom/uL Urine RBC 2-5 /HPF (0-1) H Urine WBC 6-10 /HPF (0-1) H Urine Squamous Epithelial Cells FEW /HPF (0-2) Urine Bacteria FEW /HPF (None Seen) Labs Reviewed?: Yes CT Scan Comment: PATIENT: ABIGAIL BELLA MR#: [id number] : 1980 SEX: M AGE: 43 LOCATION: [facility] ORDER STATUS: REG ER REPORT#: [id number] SERVICE [id number] REASON: R/O KIDNEY STONES low back pain ORDERING PHYSICIAN: IRINA SALDAÑA PROCEDURE: ABD PEL WO - CT ABDOMEN/PELVIS W/O CONTRAST CT ABDOMEN/PELVIS W/O CONTRAST HISTORY: Low back pain COMPARISON: 05/24/2024 . TECHNIQUE: Multiple sequential axial images of the abdomen and pelvis were obtained from the dome of the diaphragm through symphysis pubis. Patient was not given contrast through intravenous route. Oral contrast was not given. FINDINGS: No pleural effusion is seen bilaterally. There is no evidence of parenchymal disease or pulmonary nodule of the visualized lower lungs. Degenerative changes of the thoracolumbar spine are present. The heart is not enlarged. The liver is enlarged and fatty changes measuring 20 cm . There is soft tissue swelling noted in the left lower abdominal wall anteriorly. There may be fluid collection in this area measuring 10 x 4.4 cm may be related to abscess collection. The liver, spleen, adrenal glands and pancreas are unremarkable. There is no evidence of hydronephrosis bilaterally. No evidence of renal stone is seen. Fecal material is seen in the colon. There are normal size retroperitoneal and mesenteric lymph nodes. No ascites is seen. Atherosclerotic changes are present. Pelvic sidewalls are symmetric bilaterally. Bladder is well distended without wall thickening. IMPRESSION: 1. There is soft tissue swelling noted in the left lower abdominal wall anteriorly. There may be fluid collection in this area measuring 10 x 4.4 cm may be related to abscess collection. No hydronephrosis is seen. CT was performed with one or more following dose reduction techniques: automated exposure control, adjustment of the mA and kv according to patient's size, or use of a iterative reconstruction technique. DICTATED BY: SHAWNA SWENSON MD DATE: 06/08/24 0058 ED Course ED Course Orders Procedure Category Date Status Time Cbc With Differential LAB 06/08/24 Complete 00:09 Basic Metabolic Panel LAB 06/08/24 Complete 00:09 Urinalysis Profile LAB 06/08/24 Complete 00:09 Ct Abdomen/Pelvis W/O CT 06/08/24 Resulted Contrast 00:09 Ketorolac PHA 06/08/24 Complete Tromethamine 15mg/Ml 00:30 Culture Urine ASHANTI 06/08/24 In Process 02:32 Current Medications Medications (Trade) Dose Ordered Sig/Anu Route PRN Reason Start Time Stop Time Status Last Admin Dose Admin Ketorolac Tromethamine (toRADol) 15 mg ONCE ONCE IV 06/08/24 00:30 06/08/24 00:31 DC 06/08/24 01:29 Vital Signs Date Time Temp Pulse Resp B/P (MAP) Pulse Ox O2 Delivery O2 Flow Rate FiO2 06/08/24 00:23 88 18 168/100 99 Room Air* 0 21 06/07/24 23:23 98.4 94 18 147/88 96 Room Air 0 06/07/24 23:23 98.4 94 18 147/88 96 Room Air* 0 21 Recurrent abdominal wall seroma, S/P incarcerated ventral hernia repair with drain placement on 05/05/24 with recurrent S/P closure on 04/21/[address] Rowan S/P 8.5 finnish accordion drain inserted by IR on 05/25/2024 S/P 8.5 finnish accordion drain removed by IR on 05/28/24 Asthma without exacerbation History of colon cancer, s/p colectomy with colostomy, s/p takedown Nasopharyngeal mass vs enlarged adenoid tissue, s/p nasopharynx biopsy on 02/04, negative for malignancy Hypertension Hyperlipidemia Depression Diabetes mellitus type 2 DAYNE, suspected/undiagnosed Morbid obesity with BMI 59.4 History of tonsillectomy Medical Decision Making MDM The patient is a 43-year-old male with a history of hypertension, diabetes, hyperlipidemia, multiple abdominal surgeries who presents to the emergency department with complaints of left flank pain, lower back pain that radiates to the front onset prior to arrival. Patient denies any nausea or vomiting, denies any urinary or fecal incontinence. Denies any trauma. Denies any hematuria. Denies fevers. MDM: Differential diagnosis: Rationale: Tests considered and ordered secondary to shared decision making include: Previous outside records reviewed: Old ER visits. Risk of complication and/or morbidity or mortality of patient management: None Medications-Per medication reconciliation Need for hospitalization: Patient does not meet criteria for hospitalization. Need for emergency major/minor surgery: No There are no social concerns with this patient. Prescription drug management Prescriptions will include symptomatic care Patient's prior external medical records from other ER visits were reviewed by me as indicated. Prior testing and results from previous visits were reviewed. Prior tests were taken into account with medical decision making and resource utilization, independent historian/historians were used to obtain complete medical history. I independently interpreted the test that were performed, results were reviewed by me and considered findings on radiology if ordered. Medical management and examination interpretation discussions were had by me with other qualified healthcare professionals as indicated for the patient's care. Problem List Problem List: (1) Diabetic neuropathy associated with diabetes mellitus due to underlying condition (2) Morbid obesity with BMI of 50.0-59.9, adult (3) Hx of hyperlipidemia (4) DAYNE (obstructive sleep apnea) (5) Abdominal wall seroma DX & DISP Disposition: Discharge Departure Impression: Primary Impression: Abdominal wall seroma Additional Impression: Morbid obesity with BMI of 50.0-59.9, adult Condition: Stable Additional Instructions: Patient and the caregiver have been informed of all the diagnostic tests and the imaging conducted during the today's visit to the emergency room and has verbalized understanding of the results I have personally reviewed and i nterpreted all diagnostic exams performed here in the ER today as well as the vital signs documented by the nursing staff. The patient is now being discharged to home and should follow up with the primary care physician or the specialist as directed by the ER staff. Follow-up with primary care provider in 1 to 2 days. Take medications as directed here in the emergency room. Okay to continue home medications unless otherwise discussed during your visit in the emergency room today. Return to your nearest emergency room if symptoms worsen or if there is no improvement. Call 911 if you need immediate assistance. Take Tylenol or Motrin [id number] as needed and if no contraindications are present. Increase oral hydration. A wound culture or urine culture was ordered here in the emergency room department please follow-up with primary care provider and advise them to get repeat ports from our facility. If you had any Jaspreet wrap/splints that were applied here, please do not remove them until you see your primary care or specialty. Patient must follow up with the General surgery for evaluation of the seroma. Referrals: ISIDRO BEAR DO (PCP) I have examined patient Recurrent abdominal wall seroma, S/P incarcerated ventral hernia repair with drain placement on 05/05/24 with recurrent S/P closure on 04/21/[address] Rowan S/P 8.5 finnish accordion drain inserted by IR on 05/25/2024 S/P 8.5 finnish accordion drain removed by IR on 05/28/24 Asthma without exacerbation History of colon cancer, s/p colectomy with colostomy, s/p takedown Nasopharyngeal mass vs enlarged adenoid tissue, s/p nasopharynx biopsy on 02/27/2024, negative for malignancy Hypertension Hyperlipidemia Depression Diabetes mellitus type 2 DAYNE, suspected/undiagnosed Morbid obesity with BMI 59.4 History of tonsillectomy Patient has been extensively evaluated and treated with antibiotics and during recent admission all the antibiotics were stopped and it was felt that the abdominal wall fluid collection was recurrent seroma. Patient to follow up with General surgery IRINA SALDAÑA Jun 08, 2024 01:16 [place] SHAH MD Jun 08, 2024 02:49
[2024-06-08 01:24] LABS: CREATININE 0.8 mg/dL (0.5-1.3); POTASSIUM 3.5 mmol/L (3.5-5.1)
[2024-06-08] MEDS: ketOROlac 15MG/ML VIAL (15MG/ML) IV ONE (01:29)
[2024-06-08 02:28] LABS: APPEARANCE,URINE CLEAR (CLEAR); BILIRUBIN,URINE NEGATIVE (NEGATIVE); COLOR,URINE YELLOW (YELLOW); GLUCOSE, URINE (UA) NEGATIVE (NEGATIVE); KETONES,URINE NEGATIVE (NEGATIVE); LEUKOCYTE ESTERASE ,URINE NEGATIVE Leu/uL (NEGATIVE); NITRATE,URINE NEGATIVE (NEGATIVE); OCCULT BLOOD,URINE NEGATIVE (NEGATIVE); PROTEIN,URINE 20 mg/dL (NEGATIVE)
[2024-06-08 02:29] LABS: ADD UA MICROSCOPIC YES
[2024-06-08 02:31] LABS: BACTERIA,URINE FEW /HPF (None Seen); MUCUS,URINE FEW LPF (None Seen); SQUAMOUS EPITHELIAL CELL,UR FEW /HPF (0-2)
[2024-06-08 04:42] VITALS: BP 158/93; PULSE 78; RESP 18; TEMP 98.1; O2SAT 99
== END 2024-06-08 04:49 | disposition home or self-care (01) ==
LOC: EDH 23:18
DX: S30.1XXA Contusion of abdominal wall, initial encounter (principal); E66.01 Morbid (severe) obesity due to excess calories; Z68.43 Body mass index [BMI] 50.0-59.9, adult; E11.40 Type 2 diabetes mellitus with diabetic neuropathy, unspecified; E78.5 Hyperlipidemia, unspecified; G47.33 Obstructive sleep apnea (adult) (pediatric); I10 Essential (primary) hypertension; J45.909 Unspecified asthma, uncomplicated; Z79.82 Long term (current) use of aspirin; Z79.85 Long-term (current) use of injectable non-insulin antidiabetic drugs; Z79.899 Other long term (current) drug therapy; Z88.2 Allergy status to sulfonamides; Z88.8 Allergy status to other drugs, medicaments and biological substances; Z90.49 Acquired absence of other specified parts of digestive tract; Z90.89 Acquired absence of other organs; Z91.041 Radiographic dye allergy status; X58.XXXA Exposure to other specified factors, initial encounter; Y93.89 Activity, other specified; Y92.89 Other specified places as the place of occurrence of the external cause; Y99.8 Other external cause status
CPT/HCPCS: 99285; 80048; 85025; 87086 ×2; 87186; 81001; 36415; 74176; 96374; J1885

== ENCOUNTER 2024-08-08 21:51 | Emergency (ER) | payer OTHER ==
[~2024-08-08] VITALS: Ht 186.7 cm; Wt 152.9 kg
[2024-08-08 22:33] LABS: BASOPHILS # (AUTO) 0.03 K/uL (0.00-0.20); BASOPHILS % (AUTO) 0.2 % (0.0-5.0); EOSINOPHILS # (AUTO) 0.34 K/uL (0.00-0.70); EOSINOPHILS % (AUTO) 2.7 % (0.0-8.0); HEMATOCRIT 37.7 % (42-54); IMMATURE GRANULOCYTE ABSOLUTE 0.06 K/uL (0-1); LYMPHOCYTES # (AUTO) 2.1 K/uL (1.0-4.8); LYMPHOCYTES % (AUTO) 16.2 % (21.0-51.0); MEAN CORPUSCULAR HEMOGLOBIN 24.4 pg (27.0-33.0); MEAN CORPUSCULAR VOLUME 78.5 fL (79-99); MONOCYTES # (AUTO) 0.8 K/uL (0.1-1.0); MONOCYTES % (AUTO) 6.1 % (3.0-13.0); NEUTROPHILS # (AUTO) 9.4 K/uL (1.8-7.7); NEUTROPHILS % (AUTO) 74.3 % (40.0-77.0); PLATELET COUNT (AUTO) 324 K/uL (130-400); RED CELL DISTRIBUTION WIDTH 16.3 % (11.0-15.5); WHITE BLOOD COUNT (AUTO) 12.6 K/uL (4.8-10.8)
--- NOTE | 2024-08-08 22:37 | ERN ---
General Chief Complaint: Shortness of Breath Stated Complaint: SOB X SEVERAL HOURS Time Seen by MD: 22:17 Source: patient History of Present Illness Initial Comments A 44-year-old male with a past medical history of hypertension asthma diabetes hypercholesterolemia and leukemia (possibly) comes in with a feeling of crushing chest sensation making it difficult for him to breathe. He tried his inhalers at home they did not help. He also has right knee pain and itching with his fingers and hands plus a throbbing headache. 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 The colostomy was reversed. The patient had a hernia from that surgery repaired. He also had some abscesses drained associated with the incision. He does not know the name of the tumor that was removed I suggested lymphoma and he said no he does not think it was that. Quick perusal of his labs shows a persistently elevated white blood cell count. Patient is also complaining of right knee pain Allergies: Coded Allergies: Sulfa (Sulfonamide Antibiotics) (Unverified Allergy, Unknown, 03/08/22) iodine (Unverified Allergy, Unknown, 03/08/22) onion (Unverified Allergy, Unknown, 03/08/22) Uncoded Allergies: peanuts (Allergy, Unknown, 03/08/22) seafood (Allergy, Unknown, 03/08/22) Home Meds Active Scripts Docusate Sodium (Colace) 100 Mg Capsule, 1 CAP PO BID for 30 Days, #60 CAP 0 Refills Prov:LEVI GONSALEZ LOGISTICS CLERK 05/28/24 Reported Medications Liraglutide (Victoza 2-[place]raham) 0.6 Mg/0.1 Ml (18 Mg/3 Ml) Pen.injctr, 1.8 MG SQ D AILY 05/25/24 Fluticasone/Umeclidin/Vilanter (Trelegy Ellipta 200-62.5-25) 200-62.5 Blst.w.dev, 1 PUFF IH DAILY for 30 Days, #60 EACH 0 Refills 05/25/24 Oxymetazoline HCl (Oxymetazoline HCl) 0.05 % [place], 1 SPRAY NS DAILY for 30 Days, #15 ML 0 Refills 05/25/24 Metoprolol Succinate (Metoprolol Succinate) 50 Mg Tab.er.24h, 50 MG PO DAILY, TAB 10/01/23 Fluticasone Propionate (Flonase Nasal [place]) 50 Mcg/[place], 50 MCG NASAL DAILY PRN for NASAL CONGESTION, SPRAY 03/14/22 Aspirin (Aspirin) 81 Mg Tab.chew, 81 MG PO DAILY, TAB.CHEW 03/08/22 Past Medical History Past Medical History: Anxiety, Asthma, Diabetes-Type II, Hypertension Medical History Other: HERNIA / COLOSTOMY, INTESTINAL TUMORS Past Surgical History: Appendectomy, Tonsillectomy, Other Surgical History Other: COLOSTOMY AND REVERSAL Family History Family History: DM, HTN Social History Social History: Negative, Lives with family Constitutional: (-) chills, (-) diaphoresis, (-) fever, (-) malaise, (-) weakness, (-) other documentation EENTM: (-) eye pain, (-) blurred vision, (-) tearing, (-) double vision, (-) ear pain, (-) ear discharge, (-) nose pain, (-) nose congestion, (-) throat pain, (-) Throat swelling, (-) mouth pain, (-) tooth pain, (-) mouth swelling, (-) other documentation Respiratory: (-) cough, (-) orthopnea, (-) short of breath, (-) stridor, (-) wheezing, (-) other documentation Cardiovascular: (+) other documentation (Patient states that he has a feeling of a constricted chest.) Gastrointestinal/Abdominal: (-) nausea, (-) vomiting, (-) diarrhea, (-) abdominal pain, (-) abdominal distention, (-) constipation, (-) rectal bleeding, (-) dark stool/melena, (-) other documentation Genitourinary: (-) penile discharge, (-) dysuria, (-) frequency, (-) hematuria, (-) pain, (-) other documentation Musculoskeletal: (-) Neck pain, (-) back pain, (-) Flank Pain, (-) joint pain, (-) joint swelling, (-) muscle pain, (-) muscle stiffness, (-) gout, (-) other documentation Skin: (-) laceration, (-) contusion, (-) abrasion, (-) abscess, (-) rash, (-) change in color, (-) change in hair, (-) change in nails, (-) diaphoresis, (-) dryness, (-) other documentation Neuro: (+) headache (Patient does have a throbbing headache) Physical Exam General Appearance: (+) moderate distress Orientation: (+) alert Head/Face Trauma: No Eye: bilateral eye normal inspection, bilateral eye PERRL, bilateral eye EOMI Ear, Nose, Throat: (+) hearing grossly normal, (+) normal ENT inspection Neck: (+) normal inspection, (+) supple, (+) full range of motion, (+) no JVD Respiratory: (+) chest non-tender, (+) lungs clear Respiratory Comment Double decreased breath sounds, no obvious wheezing rhonchi or rales Heart: (+) regular, (+) no gallop Vascular: (+) no edema Gastrointestinal Comment Patient is obese obvious surgical scar no erythema or swelling surrounding the scar Results Laboratory and Microbiology Lab and Micro Result Laboratory Tests Test 08/08/24 22:27 White Blood Count 12.6 K/uL (4.8-10.8) H Red Blood Count 4.80 MIL/uL (4.50-6.20) Hemoglobin 11.7 g/dL (14.0-18.0) L Hematocrit 37.7 % (42-54) L Mean Corpuscular Volume 78.5 fL (79-99) L Mean Corpuscular Hemoglobin 24.4 pg (27.0-33.0) L Mean Corpuscular Hemoglobin Concent 31.0 g/dL (32.0-36.0) L Red Cell Distribution Width 16.3 % (11.0-15.5) H Platelet Count 324 K/uL (130-400) Mean Platelet Volume 9.2 fL (7.5-10.5) Immature Granulocyte % (Auto) 0.5 % (0-1) Neutrophils (%) (Auto) 74.3 % (40.0-77.0) Lymphocytes (%) (Auto) 16.2 % (21.0-51.0) L Monocytes (%) (Auto) 6.1 % (3.0-13.0) Eosinophils (%) (Auto) 2.7 % (0.0-8.0) Basophils (%) (Auto) 0.2 % (0.0-5.0) Neutrophils # (Auto) 9.4 K/uL (1.8-7.7) H Lymphocytes # (Auto) 2.1 K/uL (1.0-4.8) Monocytes # (Auto) 0.8 K/uL (0.1-1.0) Eosinophils # (Auto) 0.34 K/uL (0.00-0.70) Basophils # (Auto) 0.03 K/uL (0.00-0.20) Absolute Immature Granulocyte (auto 0.06 K/uL (0-1) Nucleated Red Blood Cells 0.0 % (0.0-0.19) Red Blood Cell Morphology See comments Sodium Level 141 mmol/L (136-145) Potassium Level 4.0 mmol/L (3.5-5.1) Chloride Level 103 mmol/L (101-111) Carbon Dioxide Level 31 mmol/L (21-32) Blood Urea Nitrogen 11 mg/dL (7-18) Creatinine 0.9 mg/dL (0.5-1.3) Glomerular Filtration Rate Calc 107 mL/min (>90) Random Glucose 111 mg/dL (70-105) H Total Calcium 8.6 mg/dL (8.5-10.1) Troponin I High Sensitivity 18 ng/L (4-75) MDM Patient maybe having an asthmatic attack, I will start a nebulizer therapy on him. It could also be a hyperventilation syndrome, I coached him to slow down his breathing. I will get a chest x-ray and an EKG I will give him a dose of ketorolac for his right knee pain and a muscle relaxant. He maybe having a tension headache. Ordered CBC and a Chem panel. I will also give him fluids, his dehydration is always on the differential especially in [facility]. At this point I see no need for CT scans. After receiving two nebulizer treatments one a DuoNeb and one a straight albuterol and receiving the fluids the patient feels much better he is resting comfortably and he would like to go home. There was nothing in his labs it is unusual. His white blood cell count is almost down to normal, I doubt he has leukemia. ED Course Orders Procedure Category Date Status Time Cbc With Differential LAB 08/08/24 Complete 22:15 Basic Metabolic Panel LAB 08/08/24 Complete 22:15 Chest 1vw RAD 08/08/24 Taken 22:15 12 Lead Ekg Tracing- EKG 08/08/24 Logged Technical 22:15 Troponin I High LAB 08/08/24 Complete Sensitivity 22:15 0.9%Nacl 1000ml (Ns PHA 08/08/24 Complete 1000ml) 23:00 Albuterol 0.083% PHA 08/08/24 Complete 2.5mg/3ml (Proventil 23:00 Ketorolac PHA 08/08/24 Complete Tromethamine 30mg/Ml 23:30 Ipratropium/Albuterol PHA 08/09/24 Complete Neb (Duoneb) 00:30 Ipratropium/Albuterol PHA 08/09/24 Complete Neb (Duoneb) 00:03 Current Medications Medications (Trade) Dose Ordered Sig/Anu Route PRN Reason Start Time Stop Time Status Last Admin Dose Admin Albuterol (DUOneb) 1 udvial ONCE ONCE IH 08/09/24 00:30 08/09/24 00:31 DC 08/09/24 00:15 Albuterol (DUOneb) 1 udvial STK-MED ONCE IH 08/09/24 00:03 08/09/24 00:03 DC 08/09/24 00:15 Albuterol Sulfate (Proventil 0.083% 2.5mg/3ml) 2.5MG ONCE ONCE IH 08/08/24 23:00 08/08/24 23:01 DC 08/08/24 23:20 Ketorolac Tromethamine (toRADol) 15 mg ONCE ONCE IVP 08/08/24 23:30 08/08/24 23:31 DC 08/08/24 23:12 Sodium Chloride 1,000 ml @ 0 mls/hr ONCE ONCE IV 08/08/24 23:00 08/08/24 23:01 DC 08/08/24 23:08 Vital Signs Date Time Temp Pulse Resp B/P (MAP) Pulse Ox O2 Delivery O2 Flow Rate FiO2 08/09/24 00:57 95 20 167/87 98 Room Air* 0 21 08/09/24 00:15 101 18 08/09/24 00:03 92 18 173/95 97 Room Air* 0 08/08/24 23:21 98 19 08/08/24 22:44 98.2 94 20 171/100 98 Room Air* 0 08/08/24 21:54 98.1 101 18 177/91 99 Nasal Cannula 2.0 DX & DISP Disposition: Discharge Departure Impression: Primary Impression: Acute bronchitis Condition: Stable Additional Instructions: Follow-up of symptoms of shortness of breath return. Referrals: ISIDRO BEAR DO (PCP) YANE SMALL MD Aug 08, 2024 22:37
[2024-08-08 22:44] VITALS: TEMP 98.2
[2024-08-08 22:48] LABS: CREATININE 0.9 mg/dL (0.5-1.3)
[2024-08-08] MEDS: 0.9%NACL 1000ML 1,000 ML IV ONE (23:08)
[2024-08-08] MEDS: ketOROlac 30MG VIAL (30MG/ML) IVP ONE (23:12)
[2024-08-08] MEDS: ALBUTEROL 0.083% 2.5 MG/3 ML INH IH ONE (23:20)
[2024-08-08 23:21] VITALS: PULSE 98; RESP 19
[2024-08-09 00:15] VITALS: PULSE 101; RESP 18
[2024-08-09] MEDS: IpraTROPium/alBUTERol SULFATE 3 ML SOLUTION IH ONE ×2 (00:15)
[2024-08-09 00:57] VITALS: BP 167/87; PULSE 95; RESP 20; O2SAT 98
--- NOTE | 2024-08-09 09:19 | HMCIMG ---
Exam Type: CHEST 1VW Clinical Information: SOB Comparison: None Findings: The lungs are clear of infiltrates. The heart is normal in size. The bony and soft tissue structures of the chest are unremarkable. Impression: Clear lungs.
--- NOTE | 2024-08-09 15:56 | EKG ---
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
== END 2024-08-09 01:14 | disposition home or self-care (01) ==
LOC: EDH 21:51
DX: J20.9 Acute bronchitis, unspecified (principal); E11.9 Type 2 diabetes mellitus without complications; I10 Essential (primary) hypertension; J45.909 Unspecified asthma, uncomplicated; Z79.82 Long term (current) use of aspirin; Z79.85 Long-term (current) use of injectable non-insulin antidiabetic drugs; Z79.899 Other long term (current) drug therapy; Z88.2 Allergy status to sulfonamides; Z88.8 Allergy status to other drugs, medicaments and biological substances; Z90.49 Acquired absence of other specified parts of digestive tract; Z90.89 Acquired absence of other organs; Z91.041 Radiographic dye allergy status; Z93.3 Colostomy status
CPT/HCPCS: 99285; 96374; 71045; 96361; 84484; 80048; 85025; 36415; 93005; 94640 ×2; J1885; J7030

== ENCOUNTER 2024-10-12 15:42 | Observation (INO) | payer OTHER ==
[~2024-10-12] VITALS: Ht 185.4 cm; Wt 176.4 kg
[~2024-10-12 15:42] MED LIST changes: +AMLO-258 PO; -DOCU-116 PO; +ESCI5TAB16 PO; -FLUT1BLS15 IH; -LIRA0.6P SQ; +LOSA100T59 PO; +METO10TA3 PO; +MONT-39 PO; +POLY17PO4 PO
[2024-10-12 16:53] LABS: BASOPHILS # (AUTO) 0.05 K/uL (0.00-0.20); BASOPHILS % (AUTO) 0.4 % (0.0-5.0); EOSINOPHILS # (AUTO) 0.34 K/uL (0.00-0.70); EOSINOPHILS % (AUTO) 2.8 % (0.0-8.0); HEMATOCRIT 37.9 % (42-54); IMMATURE GRANULOCYTE ABSOLUTE 0.05 K/uL (0-1); LYMPHOCYTES # (AUTO) 2.3 K/uL (1.0-4.8); LYMPHOCYTES % (AUTO) 18.5 % (21.0-51.0); MEAN CORPUSCULAR HEMOGLOBIN 24.6 pg (27.0-33.0); MEAN CORPUSCULAR HGB CONC 31.9 g/dL (32.0-36.0); MEAN CORPUSCULAR VOLUME 77.2 fL (79-99); MONOCYTES # (AUTO) 0.8 K/uL (0.1-1.0); MONOCYTES % (AUTO) 6.8 % (3.0-13.0); NEUTROPHILS # (AUTO) 8.7 K/uL (1.8-7.7); NEUTROPHILS % (AUTO) 71.1 % (40.0-77.0); PLATELET COUNT (AUTO) 358 K/uL (130-400); RED BLOOD CELL COUNT(AUTO) 4.91 MIL/uL (4.50-6.20); RED CELL DISTRIBUTION WIDTH 16.5 % (11.0-15.5); WHITE BLOOD COUNT (AUTO) 12.2 K/uL (4.8-10.8)
[2024-10-12 16:54] LABS: APPEARANCE,URINE CLEAR (CLEAR); BILIRUBIN,URINE NEGATIVE (NEGATIVE); COLOR,URINE LIGHT-YELLOW (YELLOW); GLUCOSE, URINE (UA) NEGATIVE (NEGATIVE); KETONES,URINE NEGATIVE (NEGATIVE); LEUKOCYTE ESTERASE ,URINE NEGATIVE Leu/uL (NEGATIVE); MUCUS,URINE RARE LPF (None Seen); NITRATE,URINE NEGATIVE (NEGATIVE); OCCULT BLOOD,URINE NEGATIVE (NEGATIVE); PH,URINE 5.5 (5.0-8.0); PROTEIN,URINE NEGATIVE (NEGATIVE); SQUAMOUS EPITHELIAL CELL,UR RARE /HPF (0-2); UROBILINOGEN,URINE 0.2 mg/dL (0.2-1.0); WBC,URINE 0-1 /HPF (0-1)
[2024-10-12 17:03] LABS: CREATININE 0.8 mg/dL (0.5-1.3); POTASSIUM 3.8 mmol/L (3.5-5.1)
[2024-10-12 17:09] LABS: ALBUMIN 3.3 g/dL (3.5-5.0); BILIRUBIN,DIRECT 0.1 mg/dL (0.0-0.3); BILIRUBIN,TOTAL 0.2 mg/dL (0.2-1.0)
[2024-10-12] MEDS: morPHINE 4 MG SYG IVP ONE (17:23)
[2024-10-12] MEDS: ondanSETRON 4MG INJ IVP ONE (17:23)
--- NOTE | 2024-10-12 17:53 | HMCIMG ---
CT ABDOMEN/PELVIS W/O CONTRAST HISTORY: Abdominal pain COMPARISON: 10/05/2024 TECHNIQUE: Multiple sequential axial images of the abdomen and pelvis were obtained from the dome of the diaphragm through symphysis pubis. Patient was not given contrast through intravenous route. Oral contrast was not given. FINDINGS: No pleural effusion is seen bilaterally. There is no evidence of parenchymal disease or pulmonary nodule of the visualized lower lungs. Degenerative changes of the thoracolumbar spine are present. The heart is not enlarged. Liver is enlarged measuring 21 cm. There is periumbilical hernia with fat content. There is left ventral hernia with fat and bowel content. The liver, spleen, adrenal glands and pancreas are unremarkable. There is no evidence of hydronephrosis bilaterally. No evidence of renal stone is seen. Fecal material is seen in the colon. There are normal size retroperitoneal and mesenteric lymph nodes. No ascites is seen. Atherosclerotic changes are present. Pelvic sidewalls are symmetric bilaterally. Bladder is poorly distended. IMPRESSION: 1. Left ventral hernia medial abdomen with bowel content. No definite bowel obstruction is seen at this time. CT was performed with one or more following dose reduction techniques: automated exposure control, adjustment of the mA and kv according to patient's size, or use of a iterative reconstruction technique.
--- NOTE | 2024-10-12 18:51 | HP ---
[facility] HISTORY & PHYSICAL Date Patient Seen: Oct 12, 2024 Time of Visit: 2129 Supervising Physician: [Dr. Edgar Ibarra] Primary Care Physician: [Dr. Lottie Schmidt ] Outpatient Specialists: [ ] Inpatient Consults: [Surgery: needs to be consulted- Dr. Rowan] PROBLEM LIST: Intractable abdominal pain -POA Left ventral hernia-POA Morbid obesity Diabetes mellitus Primary HTN HLD Chronic asthma, not on exacerbation HX of colectomy PLAN: -Admit to medsurg -Keep patient on clear liquids, NPO p MN -Manage abdominal pain and N/V PRN -ED PA will consult surgery for further eval. When I went to the ED and followed-up with the P.A., she said she was able to talk to Dr. Stanley but she declined because Dr. Rowan just saw the patient last week and that the patient was told to lose weight first before planning any surgical intervention. Patient will need to be referred back to Dr. Rowan but most likely the case remains the same. -Weight-loss counseling HPI: [Patient is a morbidly-obese 44 -year-old male with PMH significant for previous hernia with surgical repair, asthma, HTN, HLD and DM who has presented to the ED concerning intractable abdominal pain and nausea without vomiting since 3am, he claims the pain woke him up. He denies fever, chills, diarrhea, chest pain, back pain, melena or bloating. He was hospitalized a week ago due to his left abdominal hernia and was told by Dr. Rowan that he first needs to lose weight. His CT AP today reveals left ventral hernia medial abdomen with bowel content without bowel obstruction.His labworks were unremarkable. Physical assessment was concerning for severe left sided to midabdominal tenderness without signs of ischemia or peritonitis. He is endorsing a pain scale of 7/10. Goals of care were discussed with the patient verbalizing understanding and agreement. PAST MEDICAL HX: see above PAST SURGICAL HX: noncontributory SOCIAL HISTORY: No tobacco, ETOH, or illicit drug use Coded Allergies: Sulfa (Sulfonamide Antibiotics) (Unverified Allergy, Unknown, 03/08/22) iodine (Unverified Allergy, Unknown, 03/08/22) onion (Unverified Allergy, Unknown, 03/08/22) Uncoded Allergies: peanuts (Allergy, Unknown, 03/08/22) seafood (Allergy, Unknown, 03/08/22) REVIEW OF SYSTEMS: 12 point ROS reviewed with patient. Pertinent positives mentioned above. Otherwise negative. PHYSICAL EXAM: GENERAL: alert,awake oriented x 3, morbidly obese HEENT: EOMI, Sclera non icteric, moist mucosa NECK: Supple, no JVD, trachea midline LUNGS: Clear breath sounds bilaterally. No wheezes HEART: Regular rate and rhythm. Normal S1 and S2, without murmurs ABD: Abdomen soft, left-sided abdominal tenderness. Bowel sounds present EXT: No clubbing cyanosis or edema NEURO: Alert and oriented to person, follows commands Vital Signs (last 8hr) Date Time Temp Pulse Resp B/P (MAP) Pulse Ox O2 Delivery O2 Flow Rate FiO2 10/12/24 18:42 98.1 90 16 146/85 98 Room Air* 0 21 10/12/24 16:35 98.1 96 16 148/87 97 Room Air* 0 21 10/12/24 15:44 97.9 96 18 149/84 98 Room Air 0 LABS: Hematology Labs: Test 10/12/24 16:34 Range/Units White Blood Count 12.2 H 4.8-10.8 K/uL Red Blood Count 4.91 4.50-6.20 MIL/uL Hemoglobin 12.1 L 14.0-18.0 g/dL Hematocrit 37.9 L 42-54 % Mean Corpuscular Volume 77.2 L 79-99 fL Mean Corpuscular Hemoglobin 24.6 L 27.0-33.0 pg Mean Corpuscular Hemoglobin Concent 31.9 L 32.0-36.0 g/dL Red Cell Distribution Width 16.5 H 11.0-15.5 % Platelet Count 358 130-400 K/uL Mean Platelet Volume 9.7 7.5-10.5 fL Immature Granulocyte % (Auto) 0.4 0-1 % Neutrophils (%) (Auto) 71.1 40.0-77.0 % Lymphocytes (%) (Auto) 18.5 L 21.0-51.0 % Monocytes (%) (Auto) 6.8 3.0-13.0 % Eosinophils (%) (Auto) 2.8 0.0-8.0 % Basophils (%) (Auto) 0.4 0.0-5.0 % Neutrophils # (Auto) 8.7 H 1.8-7.7 K/uL Lymphocytes # (Auto) 2.3 1.0-4.8 K/uL Monocytes # (Auto) 0.8 0.1-1.0 K/uL Eosinophils # (Auto) 0.34 0.00-0.70 K/uL Basophils # (Auto) 0.05 0.00-0.20 K/uL Absolute Immature Granulocyte (auto 0.05 0-1 K/uL Nucleated Red Blood Cells 0.0 0.0-0.19 % Chemistry Labs: Test 10/12/24 16:34 Range/Units Sodium Level 143 136-145 mmol/L Potassium Level 3.8 3.5-5.1 mmol/L Chloride Level 104 101-111 mmol/L Carbon Dioxide Level 33 H 21-32 mmol/L Blood Urea Nitrogen 11 7-18 mg/dL Creatinine 0.8 0.5-1.3 mg/dL Glomerular Filtration Rate Calc 111 >90 mL/min Random Glucose 94 70-105 mg/dL Total Calcium 8.9 8.5-10.1 mg/dL Total Bilirubin 0.2 0.2-1.0 mg/dL Direct Bilirubin 0.1 0.0-0.3 mg/dL Aspartate Amino Transf (AST/SGOT) 30 10-37 U/L Alanine Aminotransferase (ALT/SGPT) 62 12-78 U/L Alkaline Phosphatase 113 50-136 U/L Total Protein 8.0 6.0-8.3 g/dL Albumin 3.3 L 3.5-5.0 g/dL Lipase 27 16-77 U/L DIAGNOSTICS / RADIOLOGY RESULTS: [ ] PLAN NEURO: Minimize central acting medications as possible. Maintain fall precautions, adequate lighting during the day PULMONARY: Supplemental 02 as needed. Maintain aspiration precautions at all times CARDIOVASCULAR: Follow hemodynamics. Vital signs per facility protocol GI & NUTRITION: Continue with nutritional support. Continue stool softeners and laxatives as needed. KIDNEYS & ELECTROLYTES: Strict monitoring of intake, output and overall fluid balance. Avoid nephrotoxic medications to the extent possible. Medications to be dosed according to renal function. Monitor electrolytes and replace as needed ENDOCRINE: Maintain blood glucose between 100-180 at all times. Hypoglycemia protocol in place INFECTIOUS DISEASE: Trend temperature, WBC and procalcitonin level Follow cultures, deescalate antibiotics as soon as possible. Panculture if new onset fever ONCOLOGY/HEMATOLOGY/COAGULATION: Monitor for s/s of bleeding Monitor hemoglobin, coagulation studies as needed SKIN: Pressure ulcer prevention per facility protocol Specialty mattress ORTHO/REHAB: Continue PT/OT Prophylaxis: Continue GI and DVT prophylaxis: SCD only, No AC pending surgical eval Code Status: Full Resuscitation Disposition: TBD Other: Total patient care time: 35 minutes JS MCDONNELL Oct 12, 2024 18:50
[2024-10-12] MEDS ORDERED: acetaMINOPHEN 325 MG TAB PO PRN (19:00)
[2024-10-12] MEDS ORDERED: LAbetaLOL 20MG SYG IV PRN (19:00)
[2024-10-12] MEDS ORDERED: cloNIDine HCL 0.1 MG TABLET PO PRN (19:00)
--- NOTE | 2024-10-12 19:05 | ERN ---
General Chief Complaint: Abdominal Pain Stated Complaint: ABDOMINAL Time Seen by MD: 15:50 Time Seen by Midlevel: 15:50 Source: patient History of Present Illness Initial Comments 44-year-old male presents to the emergency department by EMS due to left lower abdominal pain onset today. Patient reports nausea, vomiting but denies any fever, dysuria, chest pain or further associated symptoms. Patient was previously seen in the ED and diagnosed with a hernia. PMHx DM, HTN Allergies: Coded Allergies: Sulfa (Sulfonamide Antibiotics) (Unverified Allergy, Unknown, 03/08/22) iodine (Unverified Allergy, Unknown, 03/08/22) onion (Unverified Allergy, Unknown, 03/08/22) Uncoded Allergies: peanuts (Allergy, Unknown, 03/08/22) seafood (Allergy, Unknown, 03/08/22) Home Meds Active Scripts Polyethylene Glycol 3350 (Miralax) 17 Gram Powd.pack, 1 PACKET PO DAILY for constipation, #30 PACKET 0 Refills dissolve in water Prov:MARGARITA QUINTERO COMMUNICATIONS EQUIPMENT OPERATOR 10/08/24 Reported Medications Metoclopramide HCl (Metoclopramide HCl) 10 Mg Tablet, 1 TAB PO QID for 30 Days, #120 TAB 0 Refills 10/06/24 Montelukast Sodium (Montelukast Sodium) 10 Mg Tablet, 1 TAB PO DAILY for 30 Days, #30 TAB 0 Refills 10/06/24 Amlodipine Besylate (Amlodipine Besylate) 10 Mg Tablet, 1 TAB PO DAILY for 30 Days, #30 TAB 0 Refills 10/06/24 Escitalopram Oxalate (Escitalopram Oxalate) 5 Mg Tablet, 1 TAB PO DAILY for 30 Days, #30 TAB 0 Refills 10/06/24 Losartan Potassium (Losartan Potassium) 100 Mg Tablet, 100 MG PO DAILY, TAB 10/06/24 Oxymetazoline HCl (Oxymetazoline HCl) 0.05 % [place], 1 SPRAY NS DAILY for 30 Days, #15 ML 0 Refills 05/25/24 Metoprolol Succinate (Metoprolol Succinate) 50 Mg Tab.er.24h, 50 MG PO DAILY, TAB 10/01/23 Fluticasone Propionate (Flonase Nasal [place]) 50 Mcg/[place], 50 MCG NASAL DAILY PRN for NASAL CONGESTION, SPRAY 03/14/22 Aspirin (Aspirin) 81 Mg Tab.chew, 81 MG PO DAILY, TAB.CHEW 03/08/22 Discontinued Reported Medications Liraglutide (Victoza 2-[place]) 0.6 Mg/0.1 Ml (18 Mg/3 Ml) Pen.injctr, 1.8 MG SQ DAILY 05/25/24 Fluticasone/Umeclidin/Vilanter (Trelegy Ellipta 200-62.5-25) 200-62.5 Blst.w. dev, 1 PUFF IH DAILY for 30 Days, #60 EACH 0 Refills 05/25/24 Discontinued Scripts Docusate Sodium (Colace) 100 Mg Capsule, 1 CAP PO BID for 30 Days, #60 CAP 0 Refills Prov:LEVI GONSALEZ COMMUNICATIONS EQUIPMENT OPERATOR 05/28/24 Past Medical History Past Medical History: Diabetes-Type II, Hypertension, Other Medical History Other: HERNIA Past Surgical History: Appendectomy, Other Surgical History Other: COLOSOTMY AND COLOSTOMY REVERSAL, HERNIA Family History Family History: DM, HTN Social History Social History: Negative, Lives with family ROS Dictation Constitutional: Negative for fever,chills, and weight loss Eyes: Negative for injury, pain,redness, and discharge ENT: Negative for injury,pain or swelling Cardiovascular: Negative for chest pain, palpitations, and edema Respiratory: Negative for shortness of breath, cough, and wheezing, Abdomen/GI: Positive for abdominal pain, nausea, vomiting Negative for diarrhea, and constipation Back: Negative for injury and pain : Negative for painful urination, bleeding or discharge MS/Extremity: Negative for injury and deformity Skin: Negative for rash, and discoloration Neuro: Negative for headache, weakness, numbness, tingling, and seizure Psych: Negative for suicide ideation, homicidal ideation, and hallucinations Physical Exam Physical Exam Dictation General: awake, alert, no acute distress, obese Head/Face: Normocephalic, atraumatic Eyes: PERRL, EOMI, normal conjunctiva ENT: oral cavity clear, oral mucosa moist Neck: Supple, normal range of motion Cardiovascular: RRR, normal S1/S2 Respiratory: CTAB, no respiratory distress, no rales or wheezes Abdomen: Soft, left lower abdominal tenderness, non-distended, no guarding or rebound. Skin: Warm, dry, normal turgor, no rash MS/Extremity: Pulses equal, no cyanosis, neurovascular intact, FROM Neuro: COAx4, GCS 15, strength 5/5, CN 2-12 intact, normal cerebellar exam, normal gait Psych: Normal behavior, mood, and affect normal Results Laboratory and Microbiology Lab and Micro Result Labs Reviewed?: Yes EKG/XRAY/US/CT/MRI CT Scan Comment REASON: ABDOMINAL PAIN ORDERING PHYSICIAN: DESMOND UMANZOR MD PROCEDURE: ABD PEL WO - CT ABDOMEN/PELVIS W/O CONTRAST CT ABDOMEN/PELVIS W/O CONTRAST HISTORY: Abdominal pain COMPARISON: 10/05/2024 TECHNIQUE: Multiple sequential axial images of the abdomen and pelvis were obtained from the dome of the diaphragm through symphysis pubis. Patient was not given contrast through intravenous route. Oral contrast was not given. FINDINGS: No pleural effusion is seen bilaterally. There is no evidence of parenchymal disease or pulmonary nodule of the visualized lower lungs. Degenerative changes of the thoracolumbar spine are present. The heart is not enlarged. Liver is enlarged measuring 21 cm. There is periumbilical hernia with fat content. There is left ventral hernia with fat and bowel content. The liver, spleen, adrenal glands and pancreas are unremarkable. There is no evidence of hydronephrosis bilaterally. No evidence of renal stone is seen. Fecal material is seen in the colon. There are normal size retroperitoneal and mesenteric lymph nodes. No ascites is seen. Atherosclerotic changes are present. Pelvic sidewalls are symmetric bilaterally. Bladder is poorly distended. IMPRESSION: 1. Left ventral hernia medial abdomen with bowel content. No definite bowel obstruction is seen at this time. CT was performed with one or more following dose reduction techniques: automated exposure control, adjustment of the mA and kv according to patient's size, or use of a iterative reconstruction technique. DICTATED BY: SHAWNA SWENSON MD DATE: 10/12/241745 [facility] MDM: Differential diagnosis: Hernia, diverticulitis, diverticulosis, UTI, constipation Rationale: 44-year-old male presents to the emergency department by EMS due to left lower abdominal pain onset today. Patient reports nausea, vomiting but denies any fever, dysuria, chest pain or further associated symptoms. Patient was previously seen in the ED and diagnosed with a hernia. PMHx DM, HTN Labs obtained indicate leukocytosis wbc 12.2 otherwise labs nonspecific. UA negative for UTI. CT abdomen pelvis shows left ventral hernia medial abdomen with bowel content, no definite bowel obstruction is seen at this time. Due to patient's habitus unable to press/reduce hernia containing bowel. Patient was educated on findings, diagnosis, admission was discussed with patient. He states continues to be in pain and feel comfortable even after 4 mg of morphine and Zofran has been administered. Dr. Stanley general surgeon was consulted however patient was previously seen by Dr. Rowan therefore she recommended him to be consulted. Case was discussed with hospitalist who accepted admission. Previous outside records reviewed: Old ER visits. Risk of complication and/or morbidity or mortality of patient management: None Medications-Per medication reconciliation Need for hospitalization: Patient does meet criteria for hospitalization. Need for emergency major/minor surgery: No There are no social concerns with this patient. Prescription drug management Prescriptions will include symptomatic care Patient's prior external medical records from other ER visits were reviewed by me as indicated. Prior testing and results from previous visits were reviewed. Prior tests were taken into account with medical decision making and resource utilization, independent historian/historians were used to obtain complete medical history. I independently interpreted the test that were performed, results were reviewed by me and considered findings on radiology if ordered. Medical management and examination interpretation discussions were had by me with other qualified healthcare professionals as indicated for the patient's care. ED Course DX & DISP Disposition: Inpatient Decision to Admit Date: Oct 12, 2024 Departure Impression: Primary Impression: Intractable abdominal pain Additional Impressions: Leukocytosis, Nausea & vomiting Condition: Stable Referrals: ISIDRO BEAR DO (PCP) I performed the substantive portion of the visit. I have reviewed and personally made and approve the management plan that is documented in the notes by myself or the GERSON. I acknowledge full responsibility for the patient's management plan. MARIBEL PAYNE Oct 12, 2024 19:05
[2024-10-12] MEDS: INSULIN humuLIN R 100 UNIT/ML 3ML SQ SCH (21:00)
--- NOTE | 2024-10-12 21:11 | NUR ---
JS BARAHONA AT BEDSIDE.
[2024-10-13] VITALS (8 sets, daily range): BP systolic 145–163; BP diastolic 59–88; PULSE 75–81; RESP 18–20; TEMP 97.6–98; O2SAT 95–98
[2024-10-13] MEDS: morPHINE 4 MG SYG IVP PRN (01:07)
[2024-10-13] MEDS: ondanSETRON 4MG INJ IVP PRN (01:07)
[2024-10-13 05:48] LABS: BASOPHILS # (AUTO) 0.04 K/uL (0.00-0.20); BASOPHILS % (AUTO) 0.4 % (0.0-5.0); EOSINOPHILS # (AUTO) 0.35 K/uL (0.00-0.70); EOSINOPHILS % (AUTO) 3.3 % (0.0-8.0); HEMATOCRIT 37.4 % (42-54); IMMATURE GRANULOCYTE ABSOLUTE 0.03 K/uL (0-1); LYMPHOCYTES # (AUTO) 2.6 K/uL (1.0-4.8); MEAN CORPUSCULAR HEMOGLOBIN 24.4 pg (27.0-33.0); MEAN CORPUSCULAR HGB CONC 31.6 g/dL (32.0-36.0); MEAN CORPUSCULAR VOLUME 77.4 fL (79-99); MONOCYTES # (AUTO) 0.7 K/uL (0.1-1.0); MONOCYTES % (AUTO) 6.5 % (3.0-13.0); NEUTROPHILS # (AUTO) 6.8 K/uL (1.8-7.7); NEUTROPHILS % (AUTO) 64.5 % (40.0-77.0); PLATELET COUNT (AUTO) 296 K/uL (130-400); RED BLOOD CELL COUNT(AUTO) 4.83 MIL/uL (4.50-6.20); RED CELL DISTRIBUTION WIDTH 16.5 % (11.0-15.5); WHITE BLOOD COUNT (AUTO) 10.6 K/uL (4.8-10.8)
[2024-10-13 05:59] LABS: INR 1.03 (0.85-1.15); PROTHROMBIN TIME 10.9 SEC (9.6-11.6)
[2024-10-13 06:00] LABS: CREATININE 0.7 mg/dL (0.5-1.3); MAGNESIUM 1.9 mg/dL (1.80-2.40); PHOSPHORUS 4.3 mg/dL (2.5-4.9); POTASSIUM 3.6 mmol/L (3.5-5.1)
[2024-10-13] MEDS: PANTOPrazole 40 MG TAB DR PO SCH (09:00)
[2024-10-13] MEDS: morPHINE 2 MG SYG IVP PRN (09:58)
--- NOTE | 2024-10-13 16:25 | NUR ---
SPOKE W/ PATIENT AT BEDSIDE FOR D/C PLANNING PATIENT LIVES WITH SPOUSE, CHILDREN AND DAUGHTER IN LAW STATES IS DISABLES BUT STILL DRIVES, HAS NO DME EXCEPT A NEBULIZER. FAMILY EXPERIENCES FINANCIAL STRAIN, WITH REGARDS TO HIS MEDICATIONS; but otherwise deneis finanacial strain. plan is home on discharge. patient aldridge that he may be discharged in 24-48 hrs to follow up w dr. radford as out patient Addendum: 10/13/24 at 1644 by KERI ROSSI RN CM Amended: Links added.
[2024-10-13] MEDS: doCUSate SODIUM 100 MG CAP PO ONE (17:43)
[2024-10-13] MEDS ORDERED: morPHINE 2 MG SYG IVP PRN (19:00)
[2024-10-13] MEDS: LACTULOSE 20 GM/30 ML UDCUP PO PRN (22:01)
--- NOTE | 2024-10-13 23:03 | PN ---
[facility] PROGRESS NOTE Date Patient Seen: Oct 13, 2024 Time of Visit: 23:03 Supervising Physician: Dr. Edgar Ibarra Primary Care Physician: [Dr. Lottie Schmidt ] Outpatient Specialists: [ ] Inpatient Consults: [Surgery: needs to be consulted- Dr. Rowan] PROBLEM LIST: Intractable abdominal pain -POA Left ventral hernia-POA Morbid obesity Diabetes mellitus Primary HTN HLD Chronic asthma, not on exacerbation HX of colectomy PLAN: -Admit to [facility] -Keep patient on clear liquids, advanced patient's diet, as tolerated -started patient on both stool softeners and dual laxatives scheduled, for increased GI motility -ED PA will consult surgery for further eval. When I went to the ED and followed-up with the P.A., she said she was able to talk to Dr. Stanley but she declined because Dr. Rowan just saw the patient last week and that the patient was told to lose weight first before planning any surgical intervention. Patient will need to be referred back to Dr. Rowan but most likely the case remains the same. -Weight-loss counseling INTERVAL HISTORY: Patient is a morbidly-obese 44 -year-old male with PMH significant for previous hernia with surgical repair, asthma, HTN, HLD and DM who has presented to the ED concerning intractable abdominal pain and nausea without vomiting since 3am, he claims the pain woke him up. He denies fever, hills, diarrhea, chest pain, back pain, melena or bloating. He was hospitalized a week ago due to his left abdominal hernia and was told by Dr. Rowan that he first needs to lose weight. His CT AP today reveals left ventral hernia medial abdomen with bowel content without bowel obstruction.His labworks were unremarkable. Physical assessment was concerning for severe left sided to midabdominal tenderness without signs of ischemia or peritonitis. He is endorsing a pain scale of 7/10. Goals of care were discussed with the patient verbalizing understanding and agreement. 6/10-assess patient while sitting at the side of his bed watching television friendly, conversant, and pleasant. Was accompanied by bedside nurse, the patient did not have any friends nor family members present during this encount er. Patient reports minimal discomfort with left ventral hernia. Patient also reports having some constipation. Patient denies shortness or breath, ill recent ill person contact, diarrhea, dysuria, fever, and chills currently. General surgery consult, Dr. Rowan, recommendation is for the patient to follow up with PCP and to begin an aggressive over time weight loss journey. At this time the patient is not an ideal candidate for the surgery. Patient is hemodynamically stable. Patient will be started on stool softeners and stool laxative scheduled. We will reassess the patient in the morning with a.m. labs and vital signs. REVIEW OF SYSTEMS: 12 point ROS reviewed with patient. Pertinent positives mentioned above. Otherwise negative. PHYSICAL EXAM: GENERAL: alert,awake oriented x 3, morbidly obese HEENT: EOMI, Sclera non icteric, moist mucosa NECK: Supple, no JVD, trachea midline LUNGS: Clear breath sounds bilaterally. No wheezes HEART: Regular rate and rhythm. Normal S1 and S2, without murmurs ABD: Abdomen soft, left-sided abdominal tenderness. Bowel sounds present EXT: No clubbing cyanosis or edema NEURO: Alert and oriented to person, follows commands Vital Signs (last 8hr) Date Time Temp Pulse Resp B/P (MAP) Pulse Ox O2 Delivery O2 Flow Rate FiO2 10/13/24 20:00 98.1 81 20 146/77 95 Room Air 10/13/24 16:00 97.9 80 18 163/83 91 Room Air LABS: Hematology Labs: Test 10/13/24 05:38 Range/Units White Blood Count 10.6 4.8-10.8 K/uL Red Blood Count 4.83 4.50-6.20 MIL/uL Hemoglobin 11.8 L 14.0-18.0 g/dL Hematocrit 37.4 L 42-54 % Mean Corpuscular Volume 77.4 L 79-99 fL Mean Corpuscular Hemoglobin 24.4 L 27.0-33.0 pg Mean Corpuscular Hemoglobin Concent 31.6 L 32.0-36.0 g/dL Red Cell Distribution Width 16.5 H 11.0-15.5 % Platelet Count 296 130-400 K/uL Mean Platelet Volume 9.5 7.5-10.5 fL Immature Granulocyte % (Auto) 0.3 0-1 % Neutrophils (%) (Auto) 64.5 40.0-77.0 % Lymphocytes (%) (Auto) 25.0 21.0-51.0 % Monocytes (%) (Auto) 6.5 3.0-13.0 % Eosinophils (%) (Auto) 3.3 0.0-8.0 % Basophils (%) (Auto) 0.4 0.0-5.0 % Neutrophils # (Auto) 6.8 1.8-7.7 K/uL Lymphocytes # (Auto) 2.6 1.0-4.8 K/uL Monocytes # (Auto) 0.7 0.1-1.0 K/uL Eosinophils # (Auto) 0.35 0.00-0.70 K/uL Basophils # (Auto) 0.04 0.00-0.20 K/uL Absolute Immature Granulocyte (auto 0.03 0-1 K/uL Nucleated Red Blood Cells 0.0 0.0-0.19 % Red Blood Cell Morphology See comments Chemistry Labs: Test 10/13/24 19:29 10/13/24 05:38 10/12/24 16:34 Range/Units Whole Blood Glucose 89 70-110 MG/DL Sodium Level 139 136-145 mmol/L Potassium Level 3.6 3.5-5.1 mmol/L Chloride Level 104 101-111 mmol/L Carbon Dioxide Level 26 21-32 mmol/L Blood Urea Nitrogen 10 7-18 mg/dL Creatinine 0.7 0.5-1.3 mg/dL Glomerular Filtration Rate Calc 116 >90 mL/min Random Glucose 91 70-105 mg/dL Total Calcium 9.1 8.5-10.1 mg/dL Phosphorus Level 4.3 2.5-4.9 mg/dL Magnesium Level 1.90 1.80-2.40 mg/dL Total Bilirubin 0.2 0.2-1.0 mg/dL Direct Bilirubin 0.1 0.0-0.3 mg/dL Aspartate Amino Transf (AST/SGOT) 30 10-37 U/L Alanine Aminotransferase (ALT/SGPT) 62 12-78 U/L Alkaline Phosphatase 113 50-136 U/L Total Protein 8.0 6.0-8.3 g/dL Albumin 3.3 L 3.5-5.0 g/dL Amylase Level 49 25-115 U/L Lipase 27 16-77 U/L Coagulation Labs: Test 10/13/24 05:38 Range/Units Prothrombin Time 10.9 9.6-11.6 SEC Prothromb Time International Ratio 1.03 0.85-1.15 DIAGNOSTICS / RADIOLOGY RESULTS: [ ] PLAN NEURO: Minimize central acting medications as possible. Maintain fall precautions, adequate lighting during the day PULMONARY: Supplemental 02 as needed. Maintain aspiration precautions at all times CARDIOVASCULAR: Follow hemodynamics. Vital signs per facility protocol GI & NUTRITION: Continue with nutritional support. Continue stool softeners and laxatives as needed. KIDNEYS & ELECTROLYTES: Strict monitoring of intake, output and overall fluid balance. Avoid nephrotoxic medications to the extent possible. Medications to be dosed according to renal function. Monitor electrolytes and replace as needed ENDOCRINE: Maintain blood glucose between 100-180 at all times. Hypoglycemia protocol in place INFECTIOUS DISEASE: Trend temperature, WBC and procalcitonin level Follow cultures, deescalate antibiotics as soon as possible. Panculture if new onset fever ONCOLOGY/HEMATOLOGY/COAGULATION: Monitor for s/s of bleeding Monitor hemoglobin, coagulation studies as needed SKIN: Pressure ulcer prevention per facility protocol Specialty mattress ORTHO/REHAB: Continue PT/OT Prophylaxis: Continue GI and DVT prophylaxis: SCD only, No AC pending surgical eval Code Status: Full Resuscitation Disposition: Home with family care provided by spouse Other: Total patient care time: 35 minutes LEVI GONSALEZ NP Oct 13, 2024 23:03
[2024-10-14] VITALS: BP 133/82; PULSE 76; RESP 20; TEMP 98.4
[2024-10-14 04:00] VITALS: BP 146/93; PULSE 86; RESP 18; TEMP 97.9
[2024-10-14 04:43] LABS: HEMATOCRIT 36.9 % (42-54); MEAN CORPUSCULAR HEMOGLOBIN 24.4 pg (27.0-33.0); MEAN CORPUSCULAR HGB CONC 30.9 g/dL (32.0-36.0); RED BLOOD CELL COUNT(AUTO) 4.67 MIL/uL (4.50-6.20); RED CELL DISTRIBUTION WIDTH 16.4 % (11.0-15.5); WHITE BLOOD COUNT (AUTO) 9.8 K/uL (4.8-10.8)
[2024-10-14 05:10] LABS: ALBUMIN 3.3 g/dL (3.5-5.0); BILIRUBIN,TOTAL 0.3 mg/dL (0.2-1.0); CREATININE 0.7 mg/dL (0.5-1.3); MAGNESIUM 1.9 mg/dL (1.80-2.40); POTASSIUM 3.6 mmol/L (3.5-5.1); TOTAL PROTEIN, SERUM 7.8 g/dL (6.0-8.3)
[2024-10-14 08:00] VITALS: O2SAT 96
[2024-10-14 08:23] VITALS: BP 150/91; PULSE 82; RESP 20; TEMP 97.9
--- NOTE | 2024-10-14 09:47 | NUR ---
HOME MEDICATIONS HOME MEDICATIONS HAVE BEEN ENTERED. PENDING RECONCILIATION. PROVIDER NOTIFIED.
[2024-10-14] MEDS: ketOROlac 15MG/ML VIAL (15MG/ML) IV PRN (09:50)
[2024-10-14 11:23] VITALS: BP 162/81; PULSE 79; RESP 20; TEMP 98
--- NOTE | 2024-10-14 16:21 | NUR ---
BLOOD PRESSURE PATIENT'S PM BP @ 149/102 P 93. TAKES AMLODIPINE, LOSARTAN AND METOPROLOL HOME MEDICATIONS. MEDICATIONS HAVE BEEN ENTERED, PENDING RECONCILIATION. 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 PENDING RESPONSE. PATIENT ASYMPTOMATIC. NO QUALIFYING PRN MEDICATIONS AVAILABLE.
[2024-10-14 16:41] VITALS: BP 149/102; PULSE 93; RESP 20; TEMP 97.8
--- NOTE | 2024-10-14 17:28 | DS ---
[facility] DISCHARGE SUMMARY Date Patient Seen: Oct 14, 2024 Time of Visit: 17:27 Supervising Physician: Dr. Edgar Bey Primary Care Physician: [Dr. Lottie Schmidt ] Outpatient Specialists: [ ] Inpatient Consults: [Surgery: needs to be consulted- Dr. Rowan] PROBLEM LIST: Intractable abdominal pain -POA Left ventral hernia-POA Morbid obesity Diabetes mellitus Primary HTN HLD Chronic asthma, not on exacerbation HX of colectomy PLAN: -Admit to [facility] -Keep patient on clear liquids, advanced patient's diet, as tolerated -started patient on both stool softeners and dual laxatives scheduled, for increased GI motility -ED PA will consult surgery for further eval. When I went to the ED and followed-up with the P.A., she said she was able to talk to Dr. Stanley but she declined because Dr. Rowan just saw the patient last week and that the patient was told to lose weight first before planning any surgical intervention. Patient will need to be referred back to Dr. Rowan but most likely the case remains the same. -Weight-loss counseling HOSPITAL COURSE: 10/13-assess patient while sitting at the side of his bed watching television friendly, conversant, and pleasant. Was accompanied by bedside nurse, the patient did not have any friends nor family members present during this encounter. Patient reports minimal discomfort with left ventral hernia. Patient also reports having some constipation. Patient denies shortness or breath, ill recent ill person contact, diarrhea, dysuria, fever, and chills currently. General surgery consult, Dr. Rowan, recommendation is for the patient to follow up with PCP and to begin an aggressive over time weight loss journey. At this time the patient is not an ideal candidate for the surgery. Patient is hemodynamically stable. Patient will be started on stool softeners and stool laxative scheduled. We will reassess the patient in the morning with a.m. labs and vital signs. 10/14-patient with a assessed while patient was sitting at the side of the bed, awake alert and oriented. There are no family nor friends present during this encounter accompanied by bedside nurse. Patient denies any shortness of breath, fever, chills, nausea, constipation, dysuria, and diarrhea currently. Patient is hemodynamically stable. Discussed with patient following upon discharge to be able to follow up with primary care provider and do have an open discussion on ways to start the weight loss journey. Dr. Rowan, general surgeon, has chosen with the patient is not an excellent candidate right now to have a left ventral hernia repaired. Surgery would like the patient to start the weight loss journey once the patient has lost some weight. Then the patient will be an excellent candidate for the surgery. If the patient's condition somehow worsens patient has been instructed to follow up with primary care provider. Patient will be discharged home on the current medications they are taking along with an additional laxative taken twice daily. HPI (per admitting provider) Patient is a morbidly-obese 44 -year-old male with PMH significant for previous hernia with surgical repair, asthma, HTN, HLD and DM who has presented to the ED concerning intractable abdominal pain and nausea without vomiting since 3am, he claims the pain woke him up. He denies fever, chills, diarrhea, chest pain, back pain, melena or bloating. He was hospitalized a week ago due to his left abdominal hernia and was told by Dr. Rowan that he first needs to lose weight. His CT AP today reveals left ventral hernia medial abdomen with bowel content without bowel obstruction.His labworks were unremarkable. Physical assessment was concerning for severe left sided to midabdominal tenderness without signs of ischemia or peritonitis. He is endorsing a pain scale of 7/10. 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 PCP notified of patients admission, hospital course and discharge. PHYSICAL EXAM: GENERAL: alert,awake oriented x 3, morbidly obese HEENT: EOMI, Sclera non icteric, moist mucosa NECK: Supple, no JVD, trachea midline LUNGS: Clear breath sounds bilaterally. No wheezes HEART: Regular rate and rhythm. Normal S1 and S2, without murmurs ABD: Abdomen soft, left-sided abdominal tenderness. Bowel sounds present EXT: No clubbing cyanosis or edema NEURO: Alert and oriented to person, follows commands FOLLOW-UP: Dr. Lottie Schmidt Follow-up with PCP in 2-3 days RECOMMENDATIONS: See Discharge Instructions This case was seen and discussed with my supervising physician. More than 30 minutes spent on discharge process, including evaluation of the patient, discussion with nursing staff, medication reconciliation and follow-up appointments LEVI GONSALEZ NP Oct 14, 2024 17:27
[2024-10-14] MEDS ORDERED: fluTICasone proPIONate 50MCG/SPRAY 16 GM BOTTLE EN PRN (17:30)
[2024-10-14] MEDS: amLODIPine 5 MG TAB ONE (17:55)
[2024-10-14] MEDS: metOPROLol sucCINATE 50 MG TAB.SR.24H PO ONE ×2 (17:55→18:07)
[2024-10-14] MEDS: amLODIPine 5 MG TAB PO ONE (18:07)
--- NOTE | 2024-10-14 18:08 | NUR ---
DISCHARGE DC INSTRUCTIONS GIVEN TO PT. IV REMOVED CATHETER INTACT. PT VERBALIZED UNDERSTANDING. PT PENDING TRANSPORTATION VIA PRIVATE CAR WITH FATHER IN LAW.
[2024-10-14] MEDS ORDERED: monteLUKAST sodIUM 10 MG TAB PO SCH (21:00)
[2024-10-15] MEDS ORDERED: amLODIPine 5 MG TAB PO SCH (09:00)
[2024-10-15] MEDS ORDERED: polyETHYLene GLYCol 3350 17 GM POWD.PACK PO SCH (09:00)
[2024-10-15] MEDS ORDERED: ASPIRIN 81MG CHEW TAB PO SCH (09:00)
[2024-10-15] MEDS ORDERED: OXYmetazoline HCL SPRAY 100 SPRAYS/15 ML BOTTLE NS SCH (09:00)
[2024-10-15] MEDS ORDERED: LoSARTan 100 MG TABLET PO SCH (09:00)
[2024-10-15] MEDS ORDERED: metOPROLol sucCINATE 50 MG TAB.SR.24H PO SCH (09:00)
== END 2024-10-14 18:30 | disposition home or self-care (01) ==
LOC: EDH 15:42 → INTOOBSV 15:43 → OBSVTOIN 15:43 → EDHIP 15:43 → 4CH 10-13 01:41
PROVIDERS: ADMIT Internal Medicine Critical Care Medicine; ATTEND Internal Medicine Critical Care Medicine
DX: K43.9 Ventral hernia without obstruction or gangrene (principal); E66.01 Morbid (severe) obesity due to excess calories; E11.9 Type 2 diabetes mellitus without complications; I10 Essential (primary) hypertension; E78.5 Hyperlipidemia, unspecified; D72.829 Elevated white blood cell count, unspecified; R11.2 Nausea with vomiting, unspecified; J45.909 Unspecified asthma, uncomplicated; Z90.49 Acquired absence of other specified parts of digestive tract; Z88.5 Allergy status to narcotic agent; Z91.018 Allergy to other foods; Z88.1 Allergy status to other antibiotic agents; Z68.43 Body mass index [BMI] 50.0-59.9, adult; Z79.899 Other long term (current) drug therapy
CPT/HCPCS: 96374; 96375 ×2; 99285; 82150; 80076; 80048 ×2; 83690; 85025 ×2; 82948 ×8; 81001; 36415 ×3; 74176; 96376; 83735 ×2; 84100; 85610; 80053; 85027; G0378 ×48; J2405 ×2; J2270 ×3; J1885

== ENCOUNTER 2024-12-13 01:57 | Emergency (ER) | payer OTHER ==
[~2024-12-13] VITALS: Ht 185.4 cm; Wt 180.5 kg
[~2024-12-13 01:57] MED LIST changes: -ESCI5TAB16 PO; -METO10TA3 PO
--- NOTE | 2024-12-13 02:11 | ERN ---
General Chief Complaint: Abdominal Pain Stated Complaint: LLQ PAIN Time Seen by MD: 02:05 Source: patient History of Present Illness Initial Comments 44-year-old male morbidly obese status post multiple abdominal surgeries and hernia repairs comes in with left lower quadrant pain that has been present for 2 hours. No associated nausea or vomiting. No fevers or chills Allergies: Coded Allergies: Sulfa (Sulfonamide Antibiotics) (Unverified Allergy, Unknown, 03/08/22) iodine (Unverified Allergy, Unknown, 03/08/22) onion (Unverified Allergy, Unknown, 03/08/22) Uncoded Allergies: peanuts (Allergy, Unknown, 03/08/22) seafood (Allergy, Unknown, 03/08/22) Home Meds Active Scripts Polyethylene Glycol 3350 (Miralax) 17 Gram Powd.pack, 1 PACKET PO DAILY for constipation, #30 PACKET 0 Refills dissolve in water Prov:MARGARITA QUINTERO INTERN BRAND 10/08/24 Reported Medications Montelukast Sodium (Montelukast Sodium) 10 Mg Tablet, 1 TAB PO DAILY for 30 Days, #30 TAB 0 Refills 10/06/24 Amlodipine Besylate (Amlodipine Besylate) 10 Mg Tablet, 1 TAB PO DAILY for 30 Days, #30 TAB 0 Refills 10/06/24 Losartan Potassium (Losartan Potassium) 100 Mg Tablet, 100 MG PO DAILY, TAB 10/06/24 Oxymetazoline HCl (Oxymetazoline HCl) 0.05 % [place], 1 SPRAY NS DAILY for 30 Days, #15 ML 0 Refills 05/25/24 Metoprolol Succinate (Metoprolol Succinate) 50 Mg Tab.er.24h, 50 MG PO DAILY, TAB 10/01/23 Fluticasone Propionate (Flonase Nasal [place]) 50 Mcg/[place], 50 MCG NASAL DAILY PRN for NASAL CONGESTION, SPRAY 03/14/22 Aspirin (Aspirin) 81 Mg Tab.chew, 81 MG PO DAILY, TAB.CHEW 03/08/22 Past Medical History Past Medical History: Asthma, Diabetes-Type II, High Cholesterol, Hypertension, Other Medical History Other: HERNIA Past Surgical History: Appendectomy, Other Surgical History Other: COLOSOTMY AND COLOSTOMY REVERSAL, HERNIA Family History Family History: DM, HTN Social History Social History: Negative, Lives with family Constitutional: (-) chills, (-) diaphoresis, (-) fever, (-) malaise, (-) weakness, (-) other documentation EENTM: (-) eye pain, (-) blurred vision, (-) tearing, (-) double vision, (-) ear pain, (-) ear discharge, (-) nose pain, (-) nose congestion, (-) throat pain, (-) Throat swelling, (-) mouth pain, (-) tooth pain, (-) mouth swelling, (-) other documentation Respiratory: (-) cough, (-) orthopnea, (-) short of breath, (-) stridor, (-) wheezing, (-) other documentation Cardiovascular: (-) chest pain, (-) edema, (-) palpitations, (-) syncope, (-) dyspnea on exertion, (-) other documentation Gastrointestinal/Abdominal: (-) nausea, (-) vomiting, (-) diarrhea, (-) abdominal pain, (-) abdominal distention, (-) constipation, (-) rectal bleeding, (-) dark stool/melena, (-) other documentation Genitourinary: (-) penile discharge, (-) dysuria, (-) frequency, (-) hematuria, (-) pain, (-) other documentation Musculoskeletal: (-) Neck pain, (-) back pain, (-) Flank Pain, (-) joint pain, (-) joint swelling, (-) muscle pain, (-) muscle stiffness, (-) gout, (-) other documentation Skin: (-) laceration, (-) contusion, (-) abrasion, (-) abscess, (-) rash, (-) change in color, (-) change in hair, (-) change in nails, (-) diaphoresis, (-) dryness, (-) other documentation Physical Exam General Appearance: (+) no apparent distress Orientation: (+) alert, (+) oriented x 3 Head/Face Trauma: No Eye: bilateral eye normal inspection, bilateral eye PERRL, bilateral eye EOMI Ear, Nose, Throat: (+) hearing grossly normal, (+) normal ENT inspection, (+) moist mucous membraine Neck: (+) normal inspection, (+) supple Respiratory: (+) chest non-tender, (+) lungs clear, (+) well ventilated Heart: (+) regular, (+) no gallop Vascular: (+) no edema, (+) normal peripheral pulse Gastrointestinal: (+) soft, (+) non-tender, (+) bowel sound present Gastrointestinal Comment I massaged patient's abdomen quite thoroughly and hard in the areas of his pain and it did not elicit any tenderness. He points to a bulge in his left lower quadrant and palpating that also elicited no tenderness. Results Laboratory and Microbiology Lab and Micro Result Laboratory Tests Test 12/13/24 02:52 White Blood Count 14.6 K/uL (4.8-10.8) H Red Blood Count 4.80 MIL/uL (4.50-6.20) Hemoglobin 11.9 g/dL (14.0-18.0) L Hematocrit 37.8 % (42-54) L Mean Corpuscular Volume 78.8 fL (79-99) L Mean Corpuscular Hemoglobin 24.8 pg (27.0-33.0) L Mean Corpuscular Hemoglobin Concent 31.5 g/dL (32.0-36.0) L Red Cell Distribution Width 16.0 % (11.0-15.5) H Platelet Count 349 K/uL (130-400) Mean Platelet Volume 9.5 fL (7.5-10.5) Immature Granulocyte % (Auto) 0.3 % (0-1) Neutrophils (%) (Auto) 72.9 % (40.0-77.0) Lymphocytes (%) (Auto) 16.8 % (21.0-51.0) L Monocytes (%) (Auto) 7.1 % (3.0-13.0) Eosinophils (%) (Auto) 2.4 % (0.0-8.0) Basophils (%) (Auto) 0.5 % (0.0-5.0) Neutrophils # (Auto) 10.6 K/uL (1.8-7.7) H Lymphocytes # (Auto) 2.5 K/uL (1.0-4.8) Monocytes # (Auto) 1.0 K/uL (0.1-1.0) Eosinophils # (Auto) 0.35 K/uL (0.00-0.70) Basophils # (Auto) 0.07 K/uL (0.00-0.20) Absolute Immature Granulocyte (auto 0.05 K/uL (0-1) Nucleated Red Blood Cells 0.0 % (0.0-0.19) Red Blood Cell Morphology See comments Sodium Level 138 mmol/L (136-145) Potassium Level 4.2 mmol/L (3.5-5.1) Chloride Level 100 mmol/L (101-111) L Carbon Dioxide Level 32 mmol/L (21-32) Blood Urea Nitrogen 11 mg/dL (7-18) Creatinine 1.0 mg/dL (0.5-1.3) Glomerular Filtration Rate Calc 95 mL/min (>90) Random Glucose 105 mg/dL (70-105) Total Calcium 8.7 mg/dL (8.5-10.1) MDM MDM: Differential diagnosis: Hernia, musculoskeletal pain, constipation, diverticulitis, Rationale: Tests considered and ordered secondary to shared decision making include: Previous outside records reviewed: Old ER visits. Risk of complication and/or morbidity or mortality of patient management: None Medications-Per medication reconciliation Need for hospitalization: Patient does meet criteria for hospitalization. Need for emergency major/minor surgery: No There are no social concerns with this patient. Prescription drug management Prescriptions will include symptomatic care Patient's prior external medical records from other ER visits were reviewed by me as indicated. Prior testing and results from previous visits were reviewed. Prior tests were taken into account with medical decision making and resource utilization, independent historian/historians were used to obtain complete medical history. I independently interpreted the test that were performed, results were reviewed by me and considered findings on radiology if ordered. CT scan shows a hernia in the patient's left lower abdomen with no signs of obstruction. I gave the patient some food and he was able to eat it without any problems. CBC shows an elevated white count although patient has a chronically elevated white blood cell count. He is also afebrile. And has no other complaints besides as left lower quadrant hernia. Chemistry panel does show possible dehydration. I will give the patient a L of fluid and then discharge him from the emergency room. ED Course Orders Procedure Category Date Status Time Basic Metabolic Panel LAB 12/13/24 Complete Cbc With Differential LAB 12/13/24 Complete 02: Ct Abdomen/Pelvis W/O CT 12/13/24 Taken Contrast 03:20 Vital Signs Date Time Temp Pulse Resp B/P (MAP) Pulse Ox O2 Delivery O2 Flow Rate FiO2 12/13/24 04:20 98.2 87 18 137/73 96 Room Air* 0 21 12/13/24 01:58 98.1 94 18 128/87 97 Room Air 0 DX & DISP Disposition: Discharge Departure Impression: Primary Impression: Abdominal wall hernia Additional Impression: Left lower quadrant pain Condition: Stable Scripts Ketorolac Tromethamine (Toradol) 10 Mg Tab 10 MG PO BID PRN for 10, #20 TAB Prov: YANE SMALL MD 12/13/24 Additional Instructions: You have some left lower quadrant pain you also have a hernia there. There were no signs of abdominal obstruction. I recommend you follow-up with your primary care physician for a referral to a surgeon who can possibly repair it. I also strongly recommend that you lose weight as this will decrease the your incidents of hernias and also make you a stronger candidate for surgery. You have a slightly elevated white blood cell count. There could be many causes for this. However you have no signs or symptoms of an infection and therefore I am not going to give you antibiotics. Please follow-up with her primary care physician. Referrals: ISIDRO BEAR DO (PCP) YANE SMALL MD Dec 13, 2024 02:11
[2024-12-13 02:58] LABS: IMMATURE GRANULOCYTE ABSOLUTE 0.05 K/uL (0-1); NUCLEATED RED BLOOD CELLS 0.0 % (0.0-0.19); PLATELET COUNT (AUTO) 349 K/uL (130-400); RED BLOOD CELL COUNT(AUTO) 4.80 MIL/uL (4.50-6.20); RED CELL DISTRIBUTION WIDTH 16.0 % (11.0-15.5); WHITE BLOOD COUNT (AUTO) 14.6 K/uL (4.8-10.8)
[2024-12-13 03:34] LABS: CREATININE 1.0 mg/dL (0.5-1.3); GLOMERULAR FILTR. RATE CALC 95.0 mL/min (>90); GLUCOSE,RANDOM 105.0 mg/dL (70-105); SODIUM SERUM 138.0 mmol/L (136-145); UREA NITROGEN, BLOOD 11.0 mg/dL (7-18)
[2024-12-13] MEDS ORDERED: KETO10 PO (04:36)
--- NOTE | 2024-12-13 04:49 | HMCIMG ---
EXAM: CT Abdomen and Pelvis without IV contrast CLINICAL HISTORY: Pain. TECHNIQUE: Thin collimated axial CT images of the abdomen and pelvis were obtained with sagittal and coronal reformatted images also submitted. CT scan is done according to ALARA (As Low As Reasonably Achievable). CONTRAST: None. COMPARISON: CT abdomen pelvis dated 10/12/2024. FINDINGS: The included lungs are clear. Mild fatty liver. No focal abnormality within the gallbladder, pancreas, spleen, adrenals, or kidneys. Unremarkable urinary bladder. The prostate is within normal limits. There is a 6 cm ventral wall hernia in the left lumbar to lower quadrants containing a portion of the omentum and small bowel loops without obstruction or strangulation. Small ventral wall hernias in the umbilical and epigastric regions without complications. No obvious bowel wall thickening, dilatation, or obstruction. Small hiatus hernia. Uncomplicated colonic diverticula. The appendix is not visualized. Surgical sutures around the sigmoid colon. Limited evaluation of the abdominal vessels due to lack of intravenous contrast. No abdominal aortic aneurysm. No pathological lymphadenopathy in the abdomen or pelvis. No ascites or pneumoperitoneum. No acute bony abnormality is evident. Mild degenerative osseous changes. IMPRESSIONS: No acute process in the abdomen or pelvis. Mild fatty liver. Multifocal ventral wall hernias without obstruction or strangulation. Small hiatus hernia. Uncomplicated colonic diverticula. No gross interval changes. /Armando
[2024-12-13] MEDS: LACTATED RINGERS 1000ML IV STA (04:54)
[2024-12-13 05:46] VITALS: BP 132/76; PULSE 82; RESP 18; TEMP 98.4; O2SAT 96
== END 2024-12-13 05:48 | disposition home or self-care (01) ==
LOC: EDH 01:57
DX: K43.9 Ventral hernia without obstruction or gangrene (principal); R10.32 Left lower quadrant pain; J45.909 Unspecified asthma, uncomplicated; E11.9 Type 2 diabetes mellitus without complications; E66.01 Morbid (severe) obesity due to excess calories; E78.00 Pure hypercholesterolemia, unspecified; I10 Essential (primary) hypertension; Z79.82 Long term (current) use of aspirin; Z79.899 Other long term (current) drug therapy; Z88.2 Allergy status to sulfonamides; Z88.8 Allergy status to other drugs, medicaments and biological substances; Z90.49 Acquired absence of other specified parts of digestive tract
CPT/HCPCS: 99284; 74176; 96360; 80048; 85025; 36415; J7120